=== PATIENT | female | born 1940 | race Caucasian/White ===

== ENCOUNTER 2019-11-01 08:59 | Outpatient (CLI) | payer MEDICARE, SELFPAY ==
[2019-11-01] MEDS: DENOSUMAB 60 MG/ML SYRINGE SUB-Q (09:43)
== END 2019-11-01 09:00 | disposition home or self-care (01) ==
LOC: CHSTREATRM 09:01
PROVIDERS: PCP Internal Medicine; Visit Provider Internal Medicine
DX: M81.0 Age-related osteoporosis without current pathological fracture (principal)
CPT/HCPCS: 96372; J0897

== ENCOUNTER 2019-11-24 08:14 | Outpatient (CLI) | payer MEDICARE, SELFPAY ==
[2019-11-24 08:28] LABS: Basophils Absolute Auto 0.03 K/mm3 (0.00-0.10); Basophils Percent Auto 0.6 % (0.0-1.0); Eosinophils Absolute Auto 0.16 K/mm3 (0.02-0.50); Hematocrit 38.6 % (35.0-42.0); Hemoglobin 12.8 g/dL (11.7-13.8); Immature Granulocyte Absolute 0.03 K/mm3 (0.00-0.00); Immature Granulocyte Percent A 0.6 % (0.0-0.0); Lymphocytes Absolute Auto 1.84 K/mm3 (1.10-4.50); Mean Corpuscular HGB Conc 33.2 g/dL (32.0-36.0); Mean Corpuscular Hemoglobin 31.8 pg (27.0-31.0); Mean Platelet Volume 9.3 fl (9.2-11.8); Monocytes Percent Auto 7.4 % (2.0-11.0); Neutrophils Percent Auto 54.4 % (50.0-70.0); Platelet Count Result 330 K/mm3 (150-420); Red Blood Count 4.02 M/mm3 (4.20-5.40); White Blood Count 5.4 K/mm3 (4.8-10.8)
[2019-11-24 08:30] LABS: Appearance Urine Sl Cloudy (Clear); Bilirubin Urine Negative (Negative); Color Urine Yellow (Yellow); Glucose Urine UA Negative (Negative); Ketones Urine Negative (Negative); Leukocyte Esterase Ur Negative (Negative); Nitrate Urine Negative (Negative); Protein Urine Negative (Negative); Specific Grav Ur 1.015 (1.010-1.020)
[2019-11-24 08:35] LABS: Add Urine Microscopic? YES; Bacteria Urine 1+ /hpf; Blood Urine Trace-Intact (Negative); RBC Urine 0-2 /hpf (0-2); Squamous Epithelial Cell Urine Moderate /hpf (Few); WBC Urine 0-3 /hpf (0-3)
[2019-11-24 09:38] LABS: Alanine Aminotransferase 26 U/L (14-59); Albumin Level 3.7 g/dL (3.4-5.0); Alkaline Phosphatase 95 U/L (46-116); Aspartate Amino Transferase 23 U/L (15-37); Bilirubin,Total 0.4 mg/dL (0.00-1.00); Blood Urea Nitrogen 16 mg/dL (7-18); Calcium 9.1 mg/dL (8.5-10.1); Carbon Dioxide 29 mmol/L (21-32); Chloride 102 mmol/L (98-108); Cholesterol 165 mg/dL (0-200); Creatine Kinase 45 U/L (26-192); Estimated Glomerular Filt Rate > 60; Glucose 95 mg/dL (70-99); HDL Direct 46 mg/dL (40-60); LDL Cholesterol Calculated 97 mg/dL (<130); Osmolality Calculated 295 mOsm/kg (285-295); Sodium 142 mmol/L (136-145); Total Protein 6.8 g/dL (6.4-8.2); Triglycerides 110 mg/dL (0-150); Vitamin B12 818 pg/mL (193-986)
== END 2019-11-24 08:15 | disposition home or self-care (01) ==
LOC: CHSLAB 08:16
PROVIDERS: PCP Internal Medicine; Visit Provider Internal Medicine
DX: E53.9 Vitamin B deficiency, unspecified (principal); I10 Essential (primary) hypertension; E78.2 Mixed hyperlipidemia
CPT/HCPCS: 36415; 80053; 80061; 81001; 82550; 82607; 85025

== ENCOUNTER 2020-01-25 08:08 | Outpatient (CLI) | payer MEDICARE, SELFPAY ==
--- NOTE | ~2020-01-25 | US_ITS ---
US right upper quadrant INDICATION: Right upper quadrant pain and nausea PROCEDURE: Realtime right upper abdominal ultrasound. COMPARISON: No prior studies for comparison. FINDINGS: The pancreas is normal without focal mass or pancreatic ductal dilation. There is a 1 cm l iver cyst. There is normal directional flow in the portal vein. There are gallstones with mild gallbladder wall thickening. No pericholecystic fluid. Common bile du ct measures 3 mm. No sonographic Decker's sign. IMPRESSION: 1: Cholelithiasis with mild gallbladder wall thickening. Consider cholecystitis in the appropriate cl inical setting. Reviewed, dictated and finalized at location A. IMPRESSION: 1: Cholelithiasis with mild gallbladder wall thickening. Consider cholecystitis in the appropriate clinical setting.
== END 2020-01-25 08:09 | disposition home or self-care (01) ==
PROVIDERS: PCP Internal Medicine; Visit Provider Internal Medicine
DX: R10.11 Right upper quadrant pain (principal)
CPT/HCPCS: 76705

== ENCOUNTER 2020-02-01 20:35 | Emergency (ER) | payer MEDICARE, SELFPAY ==
[2020-02-01 21:01] VITALS: BP 155/88; PULSE 78; RESP 20; TEMP 36.9; O2SAT 98
--- NOTE | 2020-02-01 21:10 | ED.WEAKNESS ---
HPI - Weakness General Chief complaint: Weakness Stated complaint: weak, headache Time Seen by Provider: 02/01/20 21:10 Source: patient Mode of arrival: ambulatory Limitations: no limitations History of Present Illness HPI Narrative: 79-year-old woman comes in today complaining of shakiness in her legs that started this morning. Patient states they went to see her doctor and her symptoms stopped. After dinner this evening she states her symptoms started again. She states she has been having headache since she had an upper molar pulled 2 days ago. She states that she has some mild nausea. She denies vomiting, abdominal pain, focal weakness, dysuria, hematuria, frequent urination, diarrhea, sore throat, cough and cold symptoms. MD Complaint: generalized weakness Onset (ago): day(s) (12) Duration: intermittent Location: generalized Migration: none Severity: moderate Relieving factors: rest ( sitting) Exacerbating factors: none ( Standing) Related Data Home Medications Medication Instructions Recorded Confirmed amitriptyline 25 mg PO DAILY PRN 02/01/20 02/01/20 amoxicillin 500 mg PO TID 02/01/20 02/01/20 carvedilol 3.125 mg PO BID 02/01/20 02/01/20 desmopressin 0.2 mg PO DAILY 02/01/20 02/01/20 losartan 100 mg PO DAILY 02/01/20 02/01/20 lovastatin 40 mg PO DAILY 02/01/20 02/01/20 paroxetine HCl 20 mg PO DAILY 02/01/20 02/01/20 temazepam 15 mg PO HS PRN 02/01/20 02/01/20 Allergies Allergy/AdvReac Type Severity Reaction Status Date / Time Sulfa (Sulfonamide Allergy Nausea Verified 02/01/20 20:56 Antibiotics) Review of Systems Constitutional: Constitutional: Denies fatigue, Denies fever(s) and Denies weakness Eyes: Eyes: Denies change in vision and Denies photophobia ENT: Denies dysphagia, Denies nasal congestion and Denies sore throat Cardiovascular: Cardiovascular: Denies chest pain and Denies radiating jaw, neck or arm pain Respiratory: Respiratory: Denies chest congestion, Denies cough, Denies dyspnea and Denies wheezing Gastrointestinal: Gastrointestinal: Denies abdominal pain, Reports nausea and Denies vomiting Genitourinary: Genitourinary: Denies nocturia and Denies dysuria Integumentary/Breasts: Skin/Breast: Denies pruritus, Denies erythema and Denies rash Neurologic: Reports as per HPI, Denies vertigo, Denies dizziness, Denies syncope and Denies focal weakness Psychiatric: Psychiatric: Reports anxiety Endocrine: Endocrine: Denies polydipsia and Denies polyuria Hematologic/Lymphatic: Hematologic/Lymphatic: Denies easy bleeding and Denies easy bruising Allergic/Immunologic: Allergic/Immunologic: Denies lip swelling, Denies throat swelling, Denies tongue swelling and Denies wheezing PMFSH Past Medical History Medical History (Updated 02/01/20 @ 22:38 by Juan Villa MD) Anxiety Depression Dyslipidemia Hypertension Surgical History Surgical History (Updated 02/01/20 @ 22:38 by Juan Villa MD) H/O foot surgery H/O: hysterectomy Social History Social History (Updated 02/01/20 @ 22:38 by Juan Villa MD) Smoking status: Never smoker Alcohol intake: never Substance use: never Living arrangements: with family Exam Const: General: healthy appearing and alert Orientation/consciousness: patient oriented x3 Limitations: no limitations Other: mildly anxious HENMT: Ears: external ears normal, TM's normal bilaterally and EAC's normal Mouth: Yes Normal oral and palatal mucosa present and Yes moist mucous membranes Throat: posterior oropharynx normal and uvula midline Other: Fibrin clot at extraction site of right upper molar. No active bleeding. Eyes: Conjunctivae: conjunctivae normal Pupils: Equal, round and reactive pupils present EOM: EOMs intact bilaterally Resp: Effort & Inspection: normal respiratory effort and not labored Auscultation: clear to auscultation bilaterally, no rales, no rhonchi and no wheezes Cardio: Rate: regular rate
--- NOTE | 2020-02-01 21:19 | ECG_ITS ---
Measurements Intervals [place] Rate: 80 P: 82 PA: 190 QRS: 34 QRSD: 95 T: 66 QT: 371 QTc: 429 Interpretive Statements SINUS RHYTHM BASELINE ARTIFACT- II, III, AVR, AVL, AVF NORMAL ECG Electronically Signed On 02-02-2020 7:07:28 CDT by Yo Youngblood D.O.
[2020-02-01 21:24] VITALS: BP 162/90; PULSE 82
[2020-02-01 21:25] VITALS: BP 135/80; PULSE 88
[2020-02-01 21:36] LABS: Basophils Absolute Auto 0.02 K/mm3 (0.00-0.10); Basophils Percent Auto 0.3 % (0.0-1.0); Eosinophils Absolute Auto 0.11 K/mm3 (0.02-0.50); Eosinophils Percent Auto 1.8 % (1.0-6.0); Hematocrit 42.9 % (35.0-42.0); Hemoglobin 14.7 g/dL (11.7-13.8); Immature Granulocyte Absolute 0.02 K/mm3 (0.00-0.00); Immature Granulocyte Percent A 0.3 % (0.0-0.0); Lymphocytes Absolute Auto 2.55 K/mm3 (1.10-4.50); Lymphocytes Percent Auto 41.7 % (18.0-42.0); Mean Corpuscular HGB Conc 34.3 g/dL (32.0-36.0); Mean Corpuscular Hemoglobin 31.7 pg (27.0-31.0); Mean Corpuscular Volume 92.7 fL (78.0-102.0); Mean Platelet Volume 9.9 fl (9.2-11.8); Monocytes Absolute Auto 0.43 K/mm3 (0.10-0.90); Neutrophils Percent Auto 48.9 % (50.0-70.0); Platelet Count Result 243 K/mm3 (150-420); Red Blood Count 4.63 M/mm3 (4.20-5.40); Red Cell Distribution Width 11.9 % (11.6-14.4); White Blood Count 6.1 K/mm3 (4.8-10.8)
[2020-02-01 21:36] LABS: Add Urine Microscopic? YES; Appearance Urine Clear (Clear); Bilirubin Urine Negative (Negative); Blood Urine 2+ (Negative); Color Urine Yellow (Yellow); Glucose Urine UA Negative (Negative); Ketones Urine Negative (Negative); Leukocyte Esterase Ur Negative (Negative); Nitrate Urine Negative (Negative); Protein Urine Negative (Negative); Specific Grav Ur <= 1.005 (1.010-1.020); Urobilinogen Urine 0.2 mg/dL (0.2-1.0); pH Urine 6.5 (5.0-8.0)
[2020-02-01 21:42] LABS: Bacteria Urine Trace /hpf; Squamous Epithelial Cell Urine Few /hpf (Few); WBC Urine 0-3 /hpf (0-3)
[2020-02-01 21:52] LABS: Alanine Aminotransferase 23 U/L (14-59); Albumin Level 4.2 g/dL (3.4-5.0); Alkaline Phosphatase 80 U/L (46-116); Anion Gap 12.9 mmol/L (7-16); Aspartate Amino Transferase 21 U/L (15-37); Bilirubin,Total 0.5 mg/dL (0.00-1.00); Blood Urea Nitrogen 11 mg/dL (7-18); Calcium 9.1 mg/dL (8.5-10.1); Carbon Dioxide 29 mmol/L (21-32); Chloride 92 mmol/L (98-108); Estimated Glomerular Filt Rate > 60; Glucose 105 mg/dL (70-99); Osmolality Calculated 269 mOsm/kg (285-295); Potassium 3.9 mmol/L (3.5-5.1); Sodium 130 mmol/L (136-145); Total Protein 7.6 g/dL (6.4-8.2)
[2020-02-01 21:53] LABS: Troponin I < 0.02 ng/mL (0.00-0.056)
[2020-02-01] MEDS: SODIUM CHLORIDE 0.9% IV 1,000 ML 999 ML IV CONT (22:08)
[2020-02-01 22:52] VITALS: BP 135/81
== END 2020-02-01 22:59 | disposition home or self-care (01) ==
PROVIDERS: Emergency Provider Emergency Medicine; PCP Internal Medicine
DX: E86.0 Dehydration (principal); E78.5 Hyperlipidemia, unspecified; I10 Essential (primary) hypertension
CPT/HCPCS: 36415; 80053; 81001; 84484; 85025; 93005; 96360; 99284; J7030

== ENCOUNTER 2020-03-11 16:31 | Emergency (ER) | payer MEDICARE, SELFPAY ==
--- NOTE | 2020-03-11 17:03 | ED.WEAKNESS ---
HPI - Weakness General Chief complaint: Weakness Stated complaint: nauseous and weak Time Seen by Provider: 03/11/20 17:03 Source: patient Mode of arrival: ambulatory Limitations: no limitations History of Present Illness HPI Narrative: 79-year-old pleasant female is in the ER with chief complaints of feeling weak and nauseated. The patient states that the symptoms started this morning after she woke up . She denies in the vomiting or diarrhea, abdominal pain or urinary symptoms. Patient states that she has a gallbladder disease and is scheduled to have her gallbladder out on the February. She states that her appetite is okay but she did not eat a lot today because of the nausea. Patient denies any fever or chills. Patient states that she has similar episode about 6 weeks ago and was dehydrated at that time, was treated with IV fluids and felt better. Patient states that the weakness is generalized but denies any unsteadiness of her gait. Patient denies any blood in her stools, patient denies any chest pain or shortness of breath. Related Data Home Medications Medication Instructions Recorded Confirmed amitriptyline 25 mg PO DAILY PRN 02/01/20 02/28/20 amoxicillin 500 mg PO TID 02/01/20 02/28/20 carvedilol 3.125 mg PO BID 02/01/20 02/28/20 desmopressin 0.2 mg PO DAILY 02/01/20 02/28/20 lovastatin 40 mg PO DAILY 02/01/20 02/28/20 paroxetine HCl 20 mg PO DAILY 02/01/20 02/28/20 temazepam 15 mg PO HS PRN 02/01/20 02/28/20 losartan 100 mg tablet 50 mg PO DAILY tablet 02/08/20 02/28/20 Allergies Allergy/AdvReac Type Severity Reaction Status Date / Time iodine Allergy Mild Rash Verified 02/24/20 14:00 Sulfa (Sulfonamide Allergy Nausea Verified 02/24/20 14:00 Antibiotics) Review of Systems Review of Systems: All systems reviewed & are unremarkable except as noted in HPI and below Constitutional: Constitutional: Reports fatigue and Reports weakness Eyes: Eyes: Reports as per HPI ENT: Denies dysphagia, Denies dizziness and Denies sore throat Respiratory: Respiratory: Denies no additional respiratory complaints Gastrointestinal: Gastrointestinal: Reports as per HPI, Denies abdominal pain, Denies bloating, Denies constipation, Denies heartburn, Denies diarrhea, Reports nausea and Denies vomiting Genitourinary: Genitourinary: Reports as per HPI Musculoskeletal: Musculoskeletal: Reports no additional musculoskeletal complaints Integumentary/Breasts: Skin/Breast: Reports system reviewed and no additional complaints, except as docu Neurologic: Denies confusion, Denies vertigo, Denies dizziness, Denies syncope, Denies headache(s), Denies focal weakness, Denies numbness and Reports weakness Psychiatric: Psychiatric: Reports no additional psychiatric complaints Hematologic/Lymphatic: Hematologic/Lymphatic: Reports no additional hematologic/lymphatic complaints PMFSH Past Medical History Medical History Anxiety Depression Dyslipidemia Gall bladder disease Hypertension Kidney stones Surgical History Surgical History H/O foot surgery H/O: hysterectomy Family History Family History Father Colon cancer Mother Heart disease Social History Social History Smoking status: Never smoker Alcohol intake: never Substance use: never Living arrangements: alone Occupation/Education: retired Exam Const: General: healthy appearing, no acute distress and alert Nutritional Appearance: well nourished Orientation/consciousness: patient oriented x3 Limitations: no limitations HENMT: Head: normal to inspection Face and sinus: normal facial exam Mouth: Yes dry mucous membranes Eyes: Pupils: Equal, round and reactive pupils present EOM: EOMs intact bilaterally Neck: Neck: normal visual inspec
[2020-03-11 17:05] VITALS: BP 173/97; PULSE 106; RESP 16; TEMP 36.6; O2SAT 95
[2020-03-11 17:07] LABS: Add Urine Microscopic? YES; Appearance Urine Clear (Clear); Bilirubin Urine Negative (Negative); Blood Urine 1+ (Negative); Color Urine Yellow (Yellow); Glucose Urine UA Negative (Negative); Ketones Urine Negative (Negative); Leukocyte Esterase Ur Negative LEU/UL (Negative); Nitrate Urine Negative (Negative); Protein Urine Negative (Negative); Urobilinogen Urine 0.2 mg/dL (0.2-1.0); pH Urine 7.5 (5.0-8.0)
[2020-03-11 17:14] LABS: Squamous Epithelial Cell Urine Rare /hpf (Few); WBC Urine None seen /hpf (0-3)
[2020-03-11 17:15] LABS: Bacteria Urine None seen /hpf; Mucus Urine None seen /lpf
[2020-03-11] MEDS: LACTATED RINGERS 1,000 ML 999 ML IV CONT (17:20)
[2020-03-11 17:36] LABS: Basophils Absolute Auto 0.04 K/mm3 (0.00-0.10); Basophils Percent Auto 0.7 % (0.0-1.0); Eosinophils Absolute Auto 0.08 K/mm3 (0.02-0.50); Eosinophils Percent Auto 1.4 % (1.0-6.0); Hematocrit 38.3 % (35.0-42.0); Hemoglobin 12.8 g/dL (11.7-13.8); Immature Granulocyte Absolute 0.01 K/mm3 (0.00-0.00); Immature Granulocyte Percent A 0.2 % (0.0-0.0); Lymphocytes Absolute Auto 2.01 K/mm3 (1.10-4.50); Lymphocytes Percent Auto 34.9 % (18.0-42.0); Mean Corpuscular HGB Conc 33.4 g/dL (32.0-36.0); Mean Corpuscular Hemoglobin 31.4 pg (27.0-31.0); Mean Corpuscular Volume 94.1 fL (78.0-102.0); Mean Platelet Volume 9.8 fl (9.2-11.8); Monocytes Absolute Auto 0.44 K/mm3 (0.10-0.90); Monocytes Percent Auto 7.6 % (2.0-11.0); Neutrophils Absolute Auto 3.2 K/mm3 (1.7-7.2); Neutrophils Percent Auto 55.2 % (50.0-70.0); Platelet Count Result 208 K/mm3 (150-420); Red Blood Count 4.07 M/mm3 (4.20-5.40); White Blood Count 5.8 K/mm3 (4.8-10.8)
[2020-03-11 17:46] LABS: Anion Gap 9.2 mmol/L (7-16); Blood Urea Nitrogen 9 mg/dL (7-18); Calcium 8.8 mg/dL (8.5-10.1); Carbon Dioxide 31 mmol/L (21-32); Chloride 93 mmol/L (98-108); Estimated Glomerular Filt Rate > 60; Glucose 99 mg/dL (70-99); Magnesium 1.9 mg/dL (1.8-2.4); Osmolality Calculated 266 mOsm/kg (285-295); Potassium 4.2 mmol/L (3.5-5.1); Sodium 129 mmol/L (136-145)
[2020-03-11] MEDS: ONDANSETRON INJ 4 MG/2 ML VIAL IV PUSH (18:18)
[2020-03-11 18:29] VITALS: BP 157/89
== END 2020-03-11 18:30 | disposition home or self-care (01) ==
PROVIDERS: Emergency Provider Emergency Medicine; PCP Internal Medicine
DX: E86.0 Dehydration (principal); F41.9 Anxiety disorder, unspecified; I10 Essential (primary) hypertension
CPT/HCPCS: 36415; 80048; 81001; 83735; 85025; 96361; 96374; 99283; 99284; J2405; J7120

== ENCOUNTER 2020-03-21 00:51 | Outpatient (CLI) | payer MEDICARE, SELFPAY ==
[2020-03-21 17:34] LABS: SARS-CoV-2 RNA PCR Negative
== END 2020-03-21 00:52 | disposition home or self-care (01) ==
LOC: ANHCOVIDDT 00:51
PROVIDERS: PCP Internal Medicine; Visit Provider Surgery
DX: Z01.818 Encounter for other preprocedural examination (principal); Z11.59 Encounter for screening for other viral diseases
CPT/HCPCS: 87635; C9803; U0003

== ENCOUNTER 2020-03-21 10:16 | Outpatient (CLI) | payer MEDICARE, SELFPAY ==
[2020-03-21 10:50] LABS: Alanine Aminotransferase 20 U/L (4-35); Albumin Level 4.7 g/dL (3.5-5.1); Alkaline Phosphatase 76 U/L (38-126); Amylase 76 U/L (30-110); Aspartate Amino Transferase 32 U/L (14-36); Bilirubin,Total 0.7 mg/dL (0.2-1.3); Lipase 60 U/L (23-300)
== END 2020-03-21 10:17 | disposition home or self-care (01) ==
PROVIDERS: PCP Internal Medicine; Visit Provider Surgery
DX: Z01.818 Encounter for other preprocedural examination (principal); K80.10 Calculus of gallbladder with chronic cholecystitis without obstruction
CPT/HCPCS: 36415; 80076; 82150; 83690; 86850; 86900; 86901; 87635; C9803; U0003

== ENCOUNTER 2020-03-23 02:06 | Day surgery (SDC) | payer MEDICARE, SELFPAY ==
[2020-03-20 12:05] VITALS: BMI 26.2
[2020-03-23] VITALS (10 sets, daily range): BP systolic 107–152; BP diastolic 67–93; PULSE 61–78; RESP 12–20; TEMP 36.2–36.5; O2SAT 93–100
--- NOTE | 2020-03-23 06:45 | P.PNAN_ITS ---
Anes - Initial Pre Proc Eval Procedure: Operation Date: 03/23/20 07:30 Proposed Procedures p Laparoscopic Cholecystectomy - Raymon Viera MD Date/Time: 03/23/20 06:45 Surgeon: Raymon Viera MD Pre Op Diagnosis: chronic cholecystitis with stones Patient Data Age: 79 Gender: F Height: 1.68 m Weight: 73.6 kg Allergies Allergy/AdvReac Type Severity Reaction Status Date / Time adhesive tape Allergy Mild Rash Verified 03/20/20 12:00 iodine Allergy Mild Rash Verified 03/20/20 12:00 Sulfa (Sulfonamide Allergy Nausea Verified 03/20/20 12:00 Antibiotics) Home Medications Medication Instructions Recorded Confirmed Type amitriptyline 25 mg PO HS PRN 02/01/20 03/23/20 History carvedilol 3.125 mg PO BID 02/01/20 03/23/20 History desmopressin 0.2 mg PO DAILY 02/01/20 03/23/20 History lovastatin 40 mg PO HS 02/01/20 03/23/20 History paroxetine HCl 20 mg PO DAILY 02/01/20 03/23/20 History temazepam 15 mg PO HS PRN 02/01/20 03/23/20 History losartan 100 mg tablet 50 mg PO DAILY tablet 02/08/20 03/23/20 History esomeprazole magnesium [Nexium] 20 mg PO DAILY 03/20/20 03/23/20 History loratadine [Claritin] 10 mg PO DAILY 03/20/20 03/23/20 History algceajq-cru-VD-lycopen-lutein 1 tablet PO DAILY 03/20/20 03/23/20 History [Centrum Silver] Patient hx anesthesia problems: none Family hx anesthesia problems: none [facility] Social History Social History Smoking status: Never smoker Alcohol intake: never Substance use: never Anes - Eval Final PreProcedure Day of Procedure 03/23/20 06:45 Patient weight: overweight Heart: regular rate and rhythm Lungs: clear to auscultation and normal air movement Airway: Mallampati scale class III Neurological: alert and oriented Last oral intake: >/= 8 hours ASA classification: II Emergent: no Anesthetic plan: proceed Anesthesia type and monitoring: general ETT and standard monitoring Informed Consent: The patient's anesthetic plan and its attendant risks and benefits were discussed with the patient/family/POA. Questions were solicited and answers provided to the satisfaction of the patient/family/POA.
[2020-03-23] MEDS: LACTATED RINGERS 1,000 ML 30 ML IV CONT (06:50)
--- NOTE | 2020-03-23 06:59 | WPDHPUPDATE1 ---
History and Physical Update Update Date/Time: 03/23/20 06:59 History and Physical has been reviewed, including an updated exam of the patient. There are NO changes in the patient's condition. Risks, benefits, and alternatives have been discussed and questions answered. Patient agrees to proceed with procedure.
[2020-03-23 07:11] LABS: Sodium 127 mmol/L (137-145)
--- NOTE | 2020-03-23 07:23 | SUR.PREOP ---
0746- spoke with dr. bains about pt NA LEVEL OF 127. PT STATED NA LEVELS BEING LOW IS NORMAL. DR. DANIELLE AWARE. 0162- DR. DANIELLE AWARE THAT PT DOES NOT WANT NORCO OR PERCOCET TO GO HOME WITH.
[2020-03-23] MEDS: ceFAZolin 2 GM/D5W 50 ML 2 GM/50 ML BAG IVPB (07:29)
--- NOTE | 2020-03-23 07:35 | PM.PROC ---
Procedure Note - Detailed Date of procedure: 03/23/20 Pre-op diagnosis: chronic cholecystitis with stones Chronic cholecystitis, cholelithiasis Post-op diagnosis: same Procedure performed: Laparoscopic cholecystectomy Description of procedure: The patient was taken to surgery and induced into general anesthesia. The abdomen was prepped and draped. Trocars were placed in the usual fashion using 0.5% Marcaine with epinephrine and applied Medical optical trocars. A 5 millimeter camera was used. The gallbladder was decompressed with a laparoscopic aspirator. The cholecystotomy was closed with a Vicryl endo-loop. The gallbladder was retracted anterosuperiorly. Adhesions to the gallbladder were taken down so that the cholecystohepatic triangle was exposed. Traction was placed on the infundibulum. The cystic duct and cystic artery were dissected out very clearly. The gallbladder was dissected off the liver at its lower 3rd. Critical view was achieved. We securely clipped and divided the cystic duct and cystic artery. The gallbladder was then further retracted so that the peritoneal attachments to the liver could be divided. Once the gallbladder was freed entirely, it was placed in an Endo-Catch bag and retrieved through the 10 11 epigastric trocar site. The epigastric trocar was then replaced. We reviewed the right upper quadrant. It was irrigated and suctioned. All looked good with no evidence of bleeding or bile leakage. We evacuated CO2 and removed the trocar sleeves. Skin wounds were closed with subcuticular 4 O Monocryl skin suture. The wounds were dressed with Exofin surgical adhesive. Patient was awakened and taken to recovery in good condition. Sponge and needle counts were correct x2. Anesthesia: GETA and local (0.5% Marcaine with epinephrine) Surgeon: Raymon Viera MD Headwaiter/Headwaitress: Gayathri HERNANDEZ Estimated blood loss (mL): 10 Drains: No Packing: No Pathology: yes (Gallbladder) Complications: None Condition: stable Disposition: PACU Findings: Mild chronic inflammation, gallstones noted. No biliary ductal dilatation, no liver abnormalities.
[2020-03-23] MEDS: BUPIVACAINE/EPINEPHRINE 0.5% 30 ML VIAL INFILTRATE (08:03)
--- NOTE | 2020-03-23 08:11 | SUR.OPER ---
Ebl=10ml
== END 2020-03-23 11:12 | disposition home or self-care (01) ==
PROVIDERS: PCP Internal Medicine; Visit Provider Surgery
PROC: 0FT44ZZ Resection of Gallbladder, Percutaneous Endoscopic Approach (ICD-10-PCS; CPT 47562; principal; 2020-03-23 07:30)
DX: K80.10 Calculus of gallbladder with chronic cholecystitis without obstruction (principal); K82.8 Other specified diseases of gallbladder; I10 Essential (primary) hypertension; E78.5 Hyperlipidemia, unspecified; F32.9 Major depressive disorder, single episode, unspecified; F41.9 Anxiety disorder, unspecified; E66.3 Overweight; Z68.26 Body mass index [BMI] 26.0-26.9, adult; Z79.899 Other long term (current) drug therapy; Z88.2 Allergy status to sulfonamides
CPT/HCPCS: 47562; 36415; 84295; 88304; C1713; J0131; J0330; J0690; J1100; J2405; J2704; J3010; J7030; J7120

== ENCOUNTER 2020-05-04 08:19 | Outpatient (CLI) | payer MEDICARE, SELFPAY ==
[2020-05-04 08:28] LABS: Basophils Absolute Auto 0.06 K/mm3 (0.00-0.10); Eosinophils Absolute Auto 0.17 K/mm3 (0.02-0.50); Eosinophils Percent Auto 2.9 % (1.0-6.0); Hematocrit 47.3 % (35.0-42.0); Hemoglobin 14.4 g/dL (11.7-13.8); Immature Granulocyte Absolute 0.01 K/mm3 (0.00-0.00); Immature Granulocyte Percent A 0.2 % (0.0-0.0); Lymphocytes Absolute Auto 2.28 K/mm3 (1.10-4.50); Lymphocytes Percent Auto 38.3 % (18.0-42.0); Mean Corpuscular HGB Conc 30.4 g/dL (32.0-36.0); Mean Corpuscular Hemoglobin 32.4 pg (27.0-31.0); Mean Corpuscular Volume 106.3 fL (78.0-102.0); Mean Platelet Volume 10.4 fl (9.2-11.8); Monocytes Absolute Auto 0.31 K/mm3 (0.10-0.90); Monocytes Percent Auto 5.2 % (2.0-11.0); Neutrophils Absolute Auto 3.1 K/mm3 (1.7-7.2); Neutrophils Percent Auto 52.4 % (50.0-70.0); Platelet Count Result 242 K/mm3 (150-420); Red Blood Count 4.45 M/mm3 (4.20-5.40)
[2020-05-04 08:29] LABS: Add Urine Microscopic? YES; Appearance Urine Clear (Clear); Bilirubin Urine Negative (Negative); Blood Urine 2+ (Negative); Color Urine Yellow (Yellow); Glucose Urine UA Negative (Negative); Ketones Urine Negative (Negative); Leukocyte Esterase Ur Negative (Negative); Nitrate Urine Negative (Negative); Protein Urine Negative (Negative); Specific Grav Ur >= 1.030 (1.010-1.020); Urobilinogen Urine 0.2 mg/dL (0.2-1.0)
[2020-05-04 08:46] LABS: Bacteria Urine 3+ /hpf; Mucus Urine Heavy /lpf; RBC Urine 21-50 /hpf (0-2); Squamous Epithelial Cell Urine Many /hpf (Few)
[2020-05-04 09:25] LABS: Immature Reticulocyte Fraction 8.6 % (2.0-16.52); Reticulocyte Hemoglobin Conten 37.1 pg (28.0-35.0); Reticulocyte Percent 2.16 % (0.50-1.50)
[2020-05-04 10:11] LABS: Alanine Aminotransferase 24 U/L (14-59); Alkaline Phosphatase 71 U/L (46-116); Anion Gap 11.9 mmol/L (7-16); Aspartate Amino Transferase 23 U/L (15-37); Bilirubin,Total 0.5 mg/dL (0.00-1.00); Blood Urea Nitrogen 15 mg/dL (7-18); Calcium 9.7 mg/dL (8.5-10.1); Carbon Dioxide 32 mmol/L (21-32); Chloride 102 mmol/L (98-108); Cholesterol 213 mg/dL (0-200); Creatine Kinase 46 U/L (26-192); Estimated Glomerular Filt Rate > 60; Glucose 91 mg/dL (70-99); HDL Direct 62 mg/dL (40-60); LDL Cholesterol Calculated 118 mg/dL (<130); Osmolality Calculated 292 mOsm/kg (285-295); Potassium 4.9 mmol/L (3.5-5.1); Sodium 141 mmol/L (136-145); Total Protein 7.1 g/dL (6.4-8.2); Triglycerides 165 mg/dL (0-150); Vitamin B12 666 pg/mL (193-986)
[2020-05-07 07:15] LABS: Red Blood Cell Folate 703 ng/mL RBC (>280)
[2020-05-07 11:03] LABS: Vitamin D 25 Hydroxy 44 ng/mL (30-100)
== END 2020-05-04 08:20 | disposition home or self-care (01) ==
PROVIDERS: PCP Internal Medicine; Visit Provider Internal Medicine
DX: D53.9 Nutritional anemia, unspecified (principal); E78.5 Hyperlipidemia, unspecified; E53.8 Deficiency of other specified B group vitamins; M81.0 Age-related osteoporosis without current pathological fracture; I10 Essential (primary) hypertension
CPT/HCPCS: 36415; 80053; 80061; 81001; 82306; 82550; 82607; 82747; 85025; 85046

== ENCOUNTER 2020-05-10 12:47 | Outpatient (CLI) | payer MEDICARE, SELFPAY ==
--- NOTE | ~2020-05-10 | US_ITS ---
EXAMINATION: US retroperitoneal comp DATE: 05/10/2020 13:40 INDICATION: Hematuria TECHNIQUE: Multiple ultrasound grayscale images of the kidneys were obtained. COMPARISON: CT abdomen and pelvis dated 03/12/2019 FINDINGS: The right kidney measures 9.6 x 4.1 x 5.9 cm. The left kidney measures 9.1 x 4.7 x 5.9 cm. The kidney s demonstrate normal echogenicity. There is no hydronephrosis in either kidney. No stones identified . The bladder is normal. IMPRESSION: 1. Normal kidneys without hydronephrosis. Reviewed, dictated and finalized at location A.
== END 2020-05-10 12:48 | disposition home or self-care (01) ==
LOC: CHSIMG 12:49
PROVIDERS: PCP Internal Medicine; Visit Provider Internal Medicine
DX: R31.9 Hematuria, unspecified (principal)
CPT/HCPCS: 76770; 88112

== ENCOUNTER 2020-09-25 11:13 | Outpatient (CLI) | payer MEDICARE, SELFPAY ==
[2020-09-25 12:27] LABS: Anion Gap 6 mmol/L (8-16); Blood Urea Nitrogen 19 mg/dL (7-18); Calcium 9.3 mg/dL (8.5-10.1); Carbon Dioxide 31 mmol/L (21-32); Chloride 99 mmol/L (98-108); Estimated Glomerular Filt Rate > 60; Glucose 89 mg/dL (70-99); Osmolality Calculated 283 mOsm/kg (285-295); Potassium 4.9 mmol/L (3.5-5.1); Sodium 136 mmol/L (136-145)
== END 2020-09-25 11:14 | disposition home or self-care (01) ==
LOC: CHSLAB 11:14
PROVIDERS: PCP Internal Medicine; Visit Provider Internal Medicine
DX: I10 Essential (primary) hypertension (principal)
CPT/HCPCS: 36415; 80048

== ENCOUNTER 2020-10-20 08:28 | Outpatient (CLI) | payer MEDICARE, SELFPAY ==
[2020-10-22 18:26] LABS: SARS-CoV-2 RNA PCR Positive
== END 2020-10-20 08:29 | disposition home or self-care (01) ==
LOC: CHSLAB 08:30
PROVIDERS: PCP Internal Medicine; Visit Provider Internal Medicine
DX: U07.1 COVID-19 (principal)
CPT/HCPCS: C9803; U0003; U0005

== ENCOUNTER 2020-10-31 15:08 | Emergency (ER) | payer MEDICARE, SELFPAY ==
[2020-10-31 15:22] VITALS: BP 177/89; PULSE 87; RESP 20; TEMP 36.3; O2SAT 96
--- NOTE | 2020-10-31 15:33 | ECG_ITS ---
Measurements Intervals [place] Rate: 72 P: 65 NH: 194 QRS: -1 QRSD: 92 T: 30 QT: 376 QTc: 413 Interpretive Statements SINUS RHYTHM BASELINE ARTIFACT- II, III, AVF NORMAL ECG Electronically Signed On 10-31-2020 16:08:09 CORE DRILL OPERATOR by Yo Youngblood D.O.
--- NOTE | 2020-10-31 15:36 | ED.GENADULT ---
HPI - General Adult General Chief complaint: Weakness Stated complaint: weakness,lightheaded Source: patient Mode of arrival: ambulatory Limitations: no limitations History of Present Illness HPI narrative: Qing is an 79F with a PMH of HTN, HLD, mood disorder, GERD and hyponatremia that presented to the ED with new weakness. She had COVID a couple weeks ago and had recovered from that. However, shortly after waking up today she felt weak and like her legs were not very strong. She has had a few loose stools but no diarrhea. It felt like previous episodes of dehydration or hyponatremia. No confusion, SOB, CP, abdominal pain, N/V, CP, or syncope/syncope. Related Data Home Medications Medication Instructions Recorded Confirmed amitriptyline 25 mg PO HS PRN 02/01/20 04/05/20 carvedilol 3.125 mg PO BID 02/01/20 04/05/20 desmopressin 0.2 mg PO DAILY 02/01/20 04/05/20 lovastatin 40 mg PO HS 02/01/20 04/05/20 paroxetine HCl 20 mg PO DAILY 02/01/20 04/05/20 temazepam 15 mg PO HS PRN 02/01/20 04/05/20 losartan 100 mg tablet 50 mg PO DAILY tablet 02/08/20 04/05/20 Centrum Silver 1 tablet PO DAILY 03/20/20 04/05/20 esomeprazole magnesium [Nexium] 20 mg PO DAILY 03/20/20 04/05/20 loratadine [Claritin] 10 mg PO DAILY 03/20/20 04/05/20 Allergies Allergy/AdvReac Type Severity Reaction Status Date / Time adhesive tape Allergy Mild Rash Verified 04/05/20 09:11 iodine Allergy Mild Rash Verified 04/05/20 09:11 Sulfa (Sulfonamide Allergy Nausea Verified 04/05/20 09:11 Antibiotics) Review of Systems Constitutional: Constitutional: Reports fatigue and Reports weakness Eyes: Eyes: Reports no additional eye complaints ENT: Reports system reviewed and no additional complaints, except as documented Cardiovascular: Cardiovascular: Reports no additional cardiovascular complaints Respiratory: Respiratory: Reports no additional respiratory complaints Gastrointestinal: Gastrointestinal: Reports no additional gastrointestinal complaints Genitourinary: Genitourinary: Reports no additional female genitourinary complaints Musculoskeletal: Musculoskeletal: Reports no additional musculoskeletal complaints Integumentary/Breasts: Skin/Breast: Reports system reviewed and no additional complaints, except as docu Neurologic: Reports system reviewed and no additional complaints, except as documented Psychiatric: Psychiatric: Reports no additional psychiatric complaints Endocrine: Endocrine: Reports no additional endocrine complaints Hematologic/Lymphatic: Hematologic/Lymphatic: Reports no additional hematologic/lymphatic complaints Allergic/Immunologic: Allergic/Immunologic: Reports no additional allergic/immunologic complaints [facility] Past Medical History Medical History Anxiety Depression Dyslipidemia Gall bladder disease Hypertension Kidney stones Surgical History Surgical History H/O foot surgery H/O: hysterectomy History of laparoscopic cholecystectomy 03/23/20 Family History Family History Father Colon cancer Mother Heart disease Social History Social History Smoking status: Never smoker Alcohol intake: never Substance use: never Gender identity (if verbalized by the patient): Female Exam Const: General: healthy appearing, no acute distress and alert; No confusion Orientation/consciousness: patient oriented x3 Limitations: No altered mental status HENMT: Head: normal to inspection Other: atraumatic Eyes: Conjunctivae: conjunctivae normal Pupils: Equal, round and reactive pupils present Neck: Neck: normal visual inspection Chest: Chest palpation & inspection: normal inspection of the chest Resp: Effort & Inspection: normal respiratory effort Auscultation: clear to ausculta
[2020-10-31 15:47] LABS: Basophils Absolute Auto 0.03 K/mm3 (0.00-0.10); Basophils Percent Auto 0.4 % (0.0-1.0); Eosinophils Absolute Auto 0.03 K/mm3 (0.02-0.50); Eosinophils Percent Auto 0.4 % (1.0-6.0); Hematocrit 39.3 % (35.0-42.0); Immature Granulocyte Absolute 0.02 K/mm3 (0.00-0.00); Immature Granulocyte Percent A 0.3 % (0.0-0.0); Lymphocytes Absolute Auto 2.37 K/mm3 (1.10-4.50); Lymphocytes Percent Auto 29.7 % (18.0-42.0); Mean Corpuscular HGB Conc 33.1 g/dL (32.0-36.0); Mean Corpuscular Hemoglobin 31.9 pg (27.0-31.0); Mean Corpuscular Volume 96.6 fL (78.0-102.0); Mean Platelet Volume 9.4 fl (9.2-11.8); Monocytes Absolute Auto 0.52 K/mm3 (0.10-0.90); Monocytes Percent Auto 6.5 % (2.0-11.0); Neutrophils Percent Auto 62.7 % (50.0-70.0); Platelet Count Result 272 K/mm3 (150-420); Red Blood Count 4.07 M/mm3 (4.20-5.40); Red Cell Distribution Width 11.9 % (11.6-14.4)
[2020-10-31 16:00] VITALS: BP 144/77; PULSE 73; RESP 20; O2SAT 96
[2020-10-31 16:02] LABS: BNP 101 pg/mL (0-100)
[2020-10-31 16:05] LABS: Alanine Aminotransferase 24 U/L (14-59); Albumin Level 3.8 g/dL (3.4-5.0); Alkaline Phosphatase 97 U/L (46-116); Anion Gap 6 mmol/L (8-16); Aspartate Amino Transferase 19 U/L (15-37); Bilirubin,Total 0.3 mg/dL (0.00-1.00); Blood Urea Nitrogen 13 mg/dL (7-18); Calcium 9.5 mg/dL (8.5-10.1); Carbon Dioxide 31 mmol/L (21-32); Chloride 100 mmol/L (98-108); Estimated CRCL calculation 47 ml/min; Estimated Glomerular Filt Rate > 60; Glucose 112 mg/dL (70-99); Magnesium 2.1 mg/dL (1.8-2.4); Osmolality Calculated 285 mOsm/kg (285-295); Phosphorus 3.5 mg/dL (2.6-4.7); Potassium 4.9 mmol/L (3.5-5.1); Sodium 137 mmol/L (136-145); Total Protein 7.4 g/dL (6.4-8.2); Troponin I 4.5 ng/L (0.00-60.4)
[2020-10-31 16:30] VITALS: BP 159/88; PULSE 80; RESP 20; O2SAT 99
[2020-10-31 16:35] LABS: Appearance Urine Clear (Clear); Bilirubin Urine Negative (Negative); Color Urine Yellow (Yellow); Glucose Urine UA Negative (Negative); Ketones Urine Negative (Negative); Leukocyte Esterase Ur Negative (Negative); Nitrate Urine Negative (Negative); Protein Urine Negative (Negative); Urobilinogen Urine 0.2 mg/dL (0.2-1.0); pH Urine 6.5 (5.0-8.0)
[2020-10-31 16:44] LABS: Add Urine Microscopic? YES; Bacteria Urine Trace /hpf; Blood Urine Trace (Negative); Squamous Epithelial Cell Urine Moderate /hpf (Few); WBC Urine 0-3 /hpf (0-3)
--- NOTE | 2020-10-31 17:59 | PC.NURSE ---
1750 PT HERE FOR EVALUATION
[2020-10-31 18:02] VITALS: BP 144/84; PULSE 98; RESP 20; TEMP 36.7; O2SAT 99
== END 2020-10-31 18:06 | disposition home or self-care (01) ==
PROVIDERS: Emergency Provider Family Medicine; PCP Internal Medicine
DX: R53.1 Weakness (principal); I10 Essential (primary) hypertension; E78.5 Hyperlipidemia, unspecified; K21.9 Gastro-esophageal reflux disease without esophagitis; Z86.16 Personal history of COVID-19
CPT/HCPCS: 36415; 80053; 81001; 83735; 83880; 84100; 84484; 85025; 93005; 97161; 99283; 99284

== ENCOUNTER 2020-11-08 08:16 | Outpatient (CLI) | payer MEDICARE, SELFPAY ==
[2020-11-08 08:39] LABS: Basophils Absolute Auto 0.05 K/mm3 (0.00-0.10); Basophils Percent Auto 0.8 % (0.0-1.0); Eosinophils Absolute Auto 0.08 K/mm3 (0.02-0.50); Eosinophils Percent Auto 1.3 % (1.0-6.0); Hematocrit 41.5 % (35.0-42.0); Hemoglobin 13.4 g/dL (11.7-13.8); Immature Granulocyte Absolute 0.02 K/mm3 (0.00-0.00); Immature Granulocyte Percent A 0.3 % (0.0-0.0); Lymphocytes Absolute Auto 1.86 K/mm3 (1.10-4.50); Lymphocytes Percent Auto 30.7 % (18.0-42.0); Mean Corpuscular HGB Conc 32.3 g/dL (32.0-36.0); Mean Corpuscular Hemoglobin 31.8 pg (27.0-31.0); Mean Corpuscular Volume 98.6 fL (78.0-102.0); Mean Platelet Volume 10.1 fl (9.2-11.8); Monocytes Absolute Auto 0.34 K/mm3 (0.10-0.90); Monocytes Percent Auto 5.6 % (2.0-11.0); Neutrophils Absolute Auto 3.7 K/mm3 (1.7-7.2); Neutrophils Percent Auto 61.3 % (50.0-70.0); Platelet Count Result 355 K/mm3 (150-420); Red Blood Count 4.21 M/mm3 (4.20-5.40); White Blood Count 6.1 K/mm3 (4.8-10.8)
[2020-11-08 08:40] LABS: Appearance Urine Clear (Clear); Bilirubin Urine Negative (Negative); Color Urine Yellow (Yellow); Glucose Urine UA Negative (Negative); Ketones Urine Negative (Negative); Leukocyte Esterase Ur Negative LEU/UL (Negative); Nitrate Urine Negative (Negative); Protein Urine Negative (Negative); Specific Grav Ur 1.025 (1.010-1.020); Urobilinogen Urine 0.2 mg/dL (0.2-1.0)
[2020-11-08 08:51] LABS: Add Urine Microscopic? YES; Bacteria Urine Trace /hpf; Blood Urine Trace-Intact (Negative); Squamous Epithelial Cell Urine Few /hpf (Few); WBC Urine 0-3 /hpf (0-3)
[2020-11-08 09:52] LABS: Alanine Aminotransferase 12 U/L (14-59); Alkaline Phosphatase 94 U/L (46-116); Anion Gap 7 mmol/L (8-16); Aspartate Amino Transferase 25 U/L (15-37); Bilirubin,Total 0.5 mg/dL (0.00-1.00); Blood Urea Nitrogen 11 mg/dL (7-18); Calcium 9.3 mg/dL (8.5-10.1); Carbon Dioxide 31 mmol/L (21-32); Chloride 99 mmol/L (98-108); Cholesterol 187 mg/dL (0-200); Creatine Kinase 73 U/L (26-192); Estimated Glomerular Filt Rate > 60; Glucose 92 mg/dL (70-99); HDL Direct 59 mg/dL (40-60); LDL Cholesterol Calculated 98 mg/dL (<130); Osmolality Calculated 283 mOsm/kg (285-295); Potassium 4.8 mmol/L (3.5-5.1); Sodium 137 mmol/L (136-145); Total Protein 7.7 g/dL (6.4-8.2); Triglycerides 149 mg/dL (0-150); Vitamin B12 872 pg/mL (193-986)
[2020-11-12 20:12] LABS: Vitamin D 25 Hydroxy 50 ng/mL (30-100)
== END 2020-11-08 08:17 | disposition home or self-care (01) ==
LOC: CHSLAB 08:19
PROVIDERS: PCP Internal Medicine; Visit Provider Internal Medicine
DX: E53.9 Vitamin B deficiency, unspecified (principal); E78.5 Hyperlipidemia, unspecified; M81.0 Age-related osteoporosis without current pathological fracture; U07.1 COVID-19
CPT/HCPCS: 36415; 80053; 80061; 81001; 82306; 82550; 82607; 85025; 86769

== ENCOUNTER 2020-11-26 11:27 | Outpatient (CLI) | payer MEDICARE, SELFPAY | END 2020-11-26 11:28 | disposition home or self-care (01) | LOC: CHSLAB 11:28 | PROVIDERS: PCP Internal Medicine; Visit Provider Internal Medicine | DX: C44.722 Squamous cell carcinoma of skin of right lower limb, including hip (principal) | CPT/HCPCS: 88305 ==

== ENCOUNTER 2021-04-05 16:28 | Emergency (ER) | payer MEDICARE, SELFPAY ==
[2021-04-05 16:45] VITALS: BP 170/96; PULSE 72; RESP 16; TEMP 36.4; O2SAT 97
[2021-04-05] MEDS: MECLIZINE HCL 25 MG TABLET PO (16:58)
[2021-04-05] MEDS: ONDANSETRON HCL ODT 4 MG TABLET PO (16:58)
--- NOTE | 2021-04-05 17:11 | ED.DIZZY ---
HPI - Dizziness General Source: patient and family Mode of arrival: ambulatory Limitations: no limitations History of Present Illness HPI Narrative: Patient has known history of vertigo, due to Meniere's disease. She has taken meclizine for this in the past. She had an attack of vertigo today, which appears to have been a mild attack, with some mild nausea, and mild vertigo. She took a meclizine earlier today and it did not seem to help much. She says her meclizine was apparently 2 or more years old and . MD elicited complaint: dizziness, lightheadedness, vertigo and disequilibrium Pertinent past history: inner ear problems and Meniere's disease Onset (ago): hour(s) Timing: sudden onset Severity: mild Description: room spinning , lightheadedness, difficulty walking and ongoing History of similar symptoms: Yes Exacerbating factors: movement/ambulation Relieving factors: remaining still, sleep and other (minimal help with old meclizine) Associated symptoms: nausea and other (no focal weakness whatsoever, but katie difficult ambulating secondary to vertigo) Related Data Home Medications Medication Instructions Recorded Confirmed carvedilol 3.125 mg PO BID 02/01/20 04/05/21 desmopressin 0.2 mg PO HS 02/01/20 04/05/21 lovastatin 40 mg PO HS 02/01/20 04/05/21 paroxetine HCl 20 mg PO DAILY 02/01/20 04/05/21 losartan 100 mg tablet 50 mg PO DAILY tablet 02/08/20 04/05/21 magnesium oxide 400 mg PO DAILY 04/05/21 04/05/21 Allergies Allergy/AdvReac Type Severity Reaction Status Date / Time adhesive tape Allergy Mild Rash Verified 04/05/20 09:11 iodine Allergy Mild Rash Verified 04/05/20 09:11 Sulfa (Sulfonamide Allergy Nausea Verified 04/05/20 09:11 Antibiotics) Review of Systems Constitutional: Constitutional: Reports no additional constitutional complaints Eyes: Eyes: Reports no additional eye complaints ENT: Reports system reviewed and no additional complaints, except as documented Cardiovascular: Cardiovascular: Reports no additional cardiovascular complaints Respiratory: Respiratory: Reports no additional respiratory complaints Gastrointestinal: Gastrointestinal: Reports no additional gastrointestinal complaints Genitourinary: Genitourinary: Reports no additional female genitourinary complaints Musculoskeletal: Musculoskeletal: Reports no additional musculoskeletal complaints Integumentary/Breasts: Skin/Breast: Reports system reviewed and no additional complaints, except as docu Neurologic: Reports system reviewed and no additional complaints, except as documented Psychiatric: Psychiatric: Reports no additional psychiatric complaints Endocrine: Endocrine: Reports no additional endocrine complaints Hematologic/Lymphatic: Hematologic/Lymphatic: Reports no additional hematologic/lymphatic complaints Allergic/Immunologic: Allergic/Immunologic: Reports no additional allergic/immunologic complaints [facility] Past Medical History Medical History (Updated 04/06/21 @ 05:22 by Bernabe De Jesus MD) Anxiety Depression Dyslipidemia Gall bladder disease Hypertension Kidney stones Meniere disease Surgical History Surgical History H/O foot surgery H/O: hysterectomy History of laparoscopic cholecystectomy 03/23/20 Family History Family History Father Colon cancer Mother Heart disease Social History Social History Smoking status: Never smoker Alcohol intake: never Substance use: never Gender identity (if verbalized by the patient): Female Exam Const: General: healthy appearing, no acute distress and alert Orientation/consciousness: patient oriented x3 HENMT: Head: normal to inspection Ears: TM's normal bilaterally and external ear abnormal General nose exam: Normal external nose present Mouth: Yes Abnormal oral and palatal mucosa pr
--- NOTE | 2021-04-05 17:29 | PC.NURSE ---
PT STATES SHE IS FEELING BETTER AFTER MEDICATIONS.
[2021-04-05 17:39] VITALS: BP 144/74; PULSE 70; RESP 16; O2SAT 98
== END 2021-04-05 18:05 | disposition home or self-care (01) ==
PROVIDERS: Emergency Provider Emergency Medicine; PCP Internal Medicine
DX: R42 Dizziness and giddiness (principal); I10 Essential (primary) hypertension
CPT/HCPCS: 99283; A9270

== ENCOUNTER 2021-05-03 08:11 | Outpatient (CLI) | payer MEDICARE, SELFPAY ==
[2021-05-03 08:24] LABS: Add Urine Microscopic? YES; Appearance Urine Clear (Clear); Basophils Absolute Auto 0.04 K/mm3 (0.00-0.10); Basophils Percent Auto 0.8 % (0.0-1.0); Bilirubin Urine Negative (Negative); Blood Urine 1+ (Negative); Color Urine Light Yellow (Yellow); Eosinophils Absolute Auto 0.17 K/mm3 (0.02-0.50); Eosinophils Percent Auto 3.3 % (1.0-6.0); Glucose Urine UA Negative (Negative); Hematocrit 40.6 % (35.0-42.0); Hemoglobin 13.6 g/dL (11.7-13.8); Immature Granulocyte Absolute 0.01 K/mm3 (0.00-0.00); Immature Granulocyte Percent A 0.2 % (0.0-0.0); Ketones Urine Negative (Negative); Leukocyte Esterase Ur Negative (Negative); Lymphocytes Absolute Auto 1.85 K/mm3 (1.10-4.50); Lymphocytes Percent Auto 35.8 % (18.0-42.0); Mean Corpuscular HGB Conc 33.5 g/dL (32.0-36.0); Mean Corpuscular Hemoglobin 32.5 pg (27.0-31.0); Mean Corpuscular Volume 97.1 fL (78.0-102.0); Mean Platelet Volume 9.8 fl (9.2-11.8); Monocytes Absolute Auto 0.38 K/mm3 (0.10-0.90); Monocytes Percent Auto 7.4 % (2.0-11.0); Neutrophils Absolute Auto 2.7 K/mm3 (1.7-7.2); Neutrophils Percent Auto 52.5 % (50.0-70.0); Nitrate Urine Negative (Negative); Platelet Count Result 250 K/mm3 (150-420); Protein Urine Negative (Negative); Red Blood Count 4.18 M/mm3 (4.20-5.40); Red Cell Distribution Width 12.1 % (11.6-14.4); Urobilinogen Urine 0.2 mg/dL (0.2-1.0); White Blood Count 5.2 K/mm3 (4.8-10.8)
[2021-05-03 08:32] LABS: Bacteria Urine 1+ /hpf; Squamous Epithelial Cell Urine Few /hpf (Few); WBC Urine 0-3 /hpf (0-3)
[2021-05-03 10:44] LABS: Alanine Aminotransferase 32 U/L (14-59); Albumin Level 4.1 g/dL (3.4-5.0); Alkaline Phosphatase 94 U/L (46-116); Anion Gap 9 mmol/L (8-16); Aspartate Amino Transferase 23 U/L (15-37); Bilirubin,Total 0.8 mg/dL (0.00-1.00); Blood Urea Nitrogen 20 mg/dL (7-18); Calcium 9.3 mg/dL (8.5-10.1); Carbon Dioxide 30 mmol/L (21-32); Chloride 97 mmol/L (98-108); Cholesterol 185 mg/dL (0-200); Creatine Kinase 131 U/L (26-192); Estimated Glomerular Filt Rate > 60; Glucose 93 mg/dL (70-99); HDL Direct 62 mg/dL (40-60); LDL Cholesterol Calculated 100 mg/dL (<130); Osmolality Calculated 284 mOsm/kg (285-295); Potassium 5.3 mmol/L (3.5-5.1); Sodium 136 mmol/L (136-145); Triglycerides 114 mg/dL (0-150); Vitamin B12 784 pg/mL (193-986)
== END 2021-05-03 08:12 | disposition home or self-care (01) ==
LOC: CHSLAB 08:14
PROVIDERS: PCP Internal Medicine; Visit Provider Internal Medicine
DX: E78.2 Mixed hyperlipidemia (principal); I10 Essential (primary) hypertension; N30.10 Interstitial cystitis (chronic) without hematuria; E53.8 Deficiency of other specified B group vitamins
CPT/HCPCS: 36415; 80053; 80061; 81001; 82550; 82607; 85025

== ENCOUNTER 2021-07-04 01:49 | Day surgery (SDC) | payer MEDICARE, OTHER, SELFPAY ==
[2021-06-20 13:26] VITALS: BMI 25.8
[2021-07-04 08:54] VITALS: BP 113/73; PULSE 81; RESP 18; TEMP 36.3; O2SAT 99
--- NOTE | 2021-07-04 09:09 | WPDGICN ---
Assessment and Plan Assessment and plan (1) History of colon polyps: Code(s): Z86.010 - Personal history of colonic polyps Status: Acute Assessment and Plan: Patient is a prior history of colon polyps 2015 but also has a family history of colon polyps in her sister and colon cancer in her father. Surveillance colonoscopy will be performed at this time. Follow-up exams depending on her health (2) Family history of colon cancer in father: Code(s): Z80.0 - Family history of malignant neoplasm of digestive organs Status: Acute (3) Family history of colonic polyps: Code(s): Z83.71 - Family history of colonic polyps Status: Acute GI Consult Note Consult date/time: 07/04/21 09:09 HPI: Qing Rock is a 80 year old female Presents for screening colonoscopy. Patient has a prior history of colon polyps. Most recently 2015. Family history is significant her sister had colon polyps in her father had colon cancer. Patient currently reports that her weight appetite bowel movements are normal. She denies abdominal pain. She has had no bleeding. Review of Systems Review of Systems: All systems reviewed & are unremarkable except as noted in HPI and below PMFSH Past Medical History Medical History (Updated 07/04/21 @ 09:12 by Bernabe Chaney MD) Anxiety Depression Dyslipidemia Gall bladder disease Hypertension Kidney stones Meniere disease Surgical History Surgical History H/O foot surgery H/O: hysterectomy History of laparoscopic cholecystectomy 03/23/20 Family History Family History Father Colon cancer Mother Heart disease Social History Social History Smoking status: Never smoker Alcohol intake: never Substance use: never Living arrangements: alone Gender identity (if verbalized by the patient): Female Spiritual care concerns: No Meds Home Medications and Allergies Home Medications Medication Instructions Recorded Confirmed Type carvedilol 3.125 mg PO BID 02/01/20 06/20/21 History desmopressin 0.2 mg PO HS 02/01/20 06/20/21 History lovastatin 40 mg PO HS 02/01/20 06/20/21 History paroxetine HCl 20 mg PO DAILY 02/01/20 06/20/21 History losartan 100 mg tablet 50 mg PO DAILY tablet 02/08/20 06/20/21 History magnesium oxide 400 mg PO DAILY 04/05/21 06/20/21 History ondansetron HCl [Zofran] 4 mg PO Q4H PRN #10 tablet 04/05/21 06/20/21 Rx esomeprazole magnesium 20 mg PO DAILY 06/20/21 06/20/21 History meclizine 25 mg PO TID PRN 06/20/21 06/20/21 History Allergies Allergy/AdvReac Type Severity Reaction Status Date / Time adhesive tape Allergy Mild Rash Verified 07/04/21 08:49 iodine Allergy Mild Rash Verified 07/04/21 08:49 Sulfa (Sulfonamide Allergy Nausea Verified 07/04/21 08:49 Antibiotics) Vital Signs Vital Signs - 24 hr 07/04/21 08:54 Temperature 97.4 F L Pulse Rate 81 Respiratory Rate 18 Blood Pressure 113/73 Pulse Oximetry 99 Exam Narrative: Physical exam reveals patient to be alert. Vital signs stable. HEENT exam is unremarkable. Patient is anicteric. Lungs are clear to auscultation and percussion. Heart is without murmur or extra sounds. Abdominal exam bowel sounds are present soft nontender with no organomegaly. Digital external rectal exam is normal.
[2021-07-04] MEDS: LACTATED RINGERS 1,000 ML 150 ML IV CONT (09:11)
--- NOTE | 2021-07-04 09:38 | WPDANESEPPF ---
Anes - Initial Pre Proc Eval Procedure: Operation Date: 07/04/21 10:00 Proposed Procedures p Screening Colonoscopy - Bernabe Chaney MD Date/Time: 07/04/21 09:38 Surgeon: Bernabe Chaney MD Pre Op Diagnosis: hx of colon polyps Patient Data Age: 80 Gender: F Height: 1.68 m Weight: 75.3 kg Last Vital Signs Temp 97.4 F L 07/04/21 08:54 Pulse 81 07/04/21 08:54 Resp 18 07/04/21 08:54 BP 113/73 07/04/21 08:54 Pulse Ox 99 07/04/21 08:54 Allergies Allergy/AdvReac Type Severity Reaction Status Date / Time adhesive tape Allergy Mild Rash Verified 07/04/21 08:49 iodine Allergy Mild Rash Verified 07/04/21 08:49 Sulfa (Sulfonamide Allergy Nausea Verified 07/04/21 08:49 Antibiotics) Home Medications Medication Instructions Recorded Confirmed Type carvedilol 3.125 mg PO BID 02/01/20 06/20/21 History desmopressin 0.2 mg PO HS 02/01/20 06/20/21 History lovastatin 40 mg PO HS 02/01/20 06/20/21 History paroxetine HCl 20 mg PO DAILY 02/01/20 06/20/21 History losartan 100 mg tablet 50 mg PO DAILY tablet 02/08/20 06/20/21 History magnesium oxide 400 mg PO DAILY 04/05/21 06/20/21 History ondansetron HCl [Zofran] 4 mg PO Q4H PRN #10 tablet 04/05/21 06/20/21 Rx esomeprazole magnesium 20 mg PO DAILY 06/20/21 06/20/21 History meclizine 25 mg PO TID PRN 06/20/21 06/20/21 History Patient hx anesthesia problems: none Family hx anesthesia problems: none Results Review: All pre-operative results and documents have been reviewed as part of the pre-operative evaluation. [facility] Past Medical History Medical History (Updated 07/04/21 @ 09:12 by Bernabe Chaney MD) Anxiety Depression Dyslipidemia Gall bladder disease Hypertension Kidney stones Meniere disease Surgical History Surgical History H/O foot surgery H/O: hysterectomy History of laparoscopic cholecystectomy 03/23/20 Family History Family History Father Colon cancer Mother Heart disease Social History Social History Smoking status: Never smoker Alcohol intake: never Substance use: never Living arrangements: alone Gender identity (if verbalized by the patient): Female Spiritual care concerns: No Anes - Eval Final PreProcedure Day of Procedure 07/04/21 09:38 Patient weight: overweight Heart: regular rate and rhythm Lungs: clear to auscultation Airway: Mallampati scale class II Neurological: alert and oriented Last oral intake: >/= 8 hours ASA classification: III Emergent: no Anesthetic plan: proceed Anesthesia type and monitoring: general GIVS and standard monitoring Results Review: All pre-operative results and documents have been reviewed as part of the pre-operative evaluation. Informed Consent: The patient's anesthetic plan and its attendant risks and benefits were discussed with the patient/family/POA. Questions were solicited and answers provided to the satisfaction of the patient/family/POA.
[2021-07-04 10:00] VITALS: BP 106/67; PULSE 72; RESP 18; O2SAT 100
[2021-07-04 10:10] VITALS: BP 111/64; PULSE 70; RESP 18; O2SAT 100
[2021-07-04 10:20] VITALS: BP 122/76; PULSE 68; RESP 16; O2SAT 100
== END 2021-07-04 10:37 | disposition home or self-care (01) ==
PROVIDERS: PCP Internal Medicine; Visit Provider Internal Medicine Gastroenterology
PROC: 0DJD8ZZ Inspection of Lower Intestinal Tract, Via Natural or Artificial Opening Endoscopic (ICD-10-PCS; CPT 45378; principal; 2021-07-04 10:00)
DX: Z12.11 Encounter for screening for malignant neoplasm of colon (principal); K64.8 Other hemorrhoids; K57.30 Diverticulosis of large intestine without perforation or abscess without bleeding; Z86.010 Personal history of colon polyps; Z80.0 Family history of malignant neoplasm of digestive organs; Z83.71 Family history of colonic polyps; I10 Essential (primary) hypertension; E78.5 Hyperlipidemia, unspecified; F41.8 Other specified anxiety disorders
CPT/HCPCS: G0105; J2704; J7120

== ENCOUNTER 2021-09-04 10:57 | Outpatient (CLI) | payer MEDICARE, OTHER, SELFPAY | END 2021-09-04 10:58 | disposition home or self-care (01) | LOC: CHSAUDIO 11:00 | PROVIDERS: PCP Internal Medicine; Visit Provider Internal Medicine | DX: H91.93 Unspecified hearing loss, bilateral (principal) | CPT/HCPCS: 92557; 92567 ==

== ENCOUNTER 2021-09-13 10:20 | Outpatient (CLI) | payer MEDICARE, OTHER, SELFPAY ==
--- NOTE | ~2021-09-13 | CT_ITS ---
EXAMINATION: CT facial bones wo con DATE: 09/13/2021 10:44 INDICATION: Pain in the left temporomandibular joint. TECHNIQUE: Computed tomography (CT) of the facial bones and maxillofacial region was performed withou t intravenous contrast with mouth opening and with mouth closed. Automated exposure control and itera tive reconstruction technique were employed. The dose-length product was 600.03 mGy-cm. COMPARISON: CT maxillofacial 02/08/2018 FINDINGS: There are likely changes of ocular lens replacement surgeries. There is mild mucosal thicke mesfin in the paranasal sinuses. There is leftward deviation of the nasal septum. There is severe cervi eliezer spondylosis. The mandibular condyles are normal in morphology. The mandibular condyles are in nor mal position with the mouth closed. There is greater than expected anterior translation of the right mandibular condyle in the open mouth position. There is normal anterior translation of the left hakeem bular condyle in the open-mouth position. IMPRESSION: 1. No etiology for pain at the left temporomandibular joint. Reviewed, dictated and finalized at location A. GENCY CARE ATTENDANT
== END 2021-09-13 10:21 | disposition home or self-care (01) ==
LOC: CHSIMG 10:23
PROVIDERS: PCP Internal Medicine; Visit Provider Internal Medicine
DX: M26.622 Arthralgia of left temporomandibular joint (principal)
CPT/HCPCS: 70486

== ENCOUNTER 2021-11-20 08:07 | Outpatient (CLI) | payer MEDICARE, SELFPAY ==
[2021-11-20 08:29] LABS: Add Urine Microscopic? YES; Appearance Urine Clear (Clear); Bilirubin Urine Negative (Negative); Blood Urine 2+ (Negative); Color Urine Yellow (Yellow); Glucose Urine UA Negative (Negative); Ketones Urine Negative (Negative); Leukocyte Esterase Ur Negative (Negative); Nitrate Urine Negative (Negative); Protein Urine Negative (Negative); Specific Grav Ur 1.025 (1.010-1.020); Urobilinogen Urine 0.2 mg/dL (0.2-1.0)
[2021-11-20 08:31] LABS: Basophils Absolute Auto 0.04 K/mm3 (0.00-0.10); Basophils Percent Auto 0.7 % (0.0-1.0); Eosinophils Absolute Auto 0.26 K/mm3 (0.02-0.50); Eosinophils Percent Auto 4.6 % (1.0-6.0); Hemoglobin 13.7 g/dL (11.7-13.8); Immature Granulocyte Absolute 0.01 K/mm3 (0.00-0.00); Immature Granulocyte Percent A 0.2 % (0.0-0.0); Lymphocytes Absolute Auto 2.23 K/mm3 (1.10-4.50); Lymphocytes Percent Auto 39.7 % (18.0-42.0); Mean Corpuscular HGB Conc 32.6 g/dL (32.0-36.0); Mean Corpuscular Hemoglobin 32.8 pg (27.0-31.0); Mean Corpuscular Volume 100.5 fL (78.0-102.0); Monocytes Absolute Auto 0.41 K/mm3 (0.10-0.90); Monocytes Percent Auto 7.3 % (2.0-11.0); Neutrophils Absolute Auto 2.7 K/mm3 (1.7-7.2); Neutrophils Percent Auto 47.5 % (50.0-70.0); Platelet Count Result 250 K/mm3 (150-420); Red Blood Count 4.18 M/mm3 (4.20-5.40); White Blood Count 5.6 K/mm3 (4.8-10.8)
[2021-11-20 08:34] LABS: WBC Urine 0-3 /hpf (0-3)
[2021-11-20 08:35] LABS: Bacteria Urine Trace /hpf; Mucus Urine Moderate /lpf; Squamous Epithelial Cell Urine Few /hpf (Few)
[2021-11-20 09:31] LABS: Alanine Aminotransferase 27 U/L (14-59); Alkaline Phosphatase 98 U/L (46-116); Anion Gap 9 mmol/L (8-16); Aspartate Amino Transferase 21 U/L (15-37); Bilirubin,Total 0.5 mg/dL (0.00-1.00); Blood Urea Nitrogen 23 mg/dL (7-18); Calcium 9.6 mg/dL (8.5-10.1); Carbon Dioxide 31 mmol/L (21-32); Chloride 101 mmol/L (98-108); Cholesterol 198 mg/dL (0-200); Creatine Kinase 61 U/L (26-192); Estimated Glomerular Filt Rate > 60; Glucose 93 mg/dL (70-99); HDL Direct 63 mg/dL (40-60); LDL Cholesterol Calculated 106 mg/dL (<130); Osmolality Calculated 295 mOsm/kg (285-295); Potassium 5.4 mmol/L (3.5-5.1); Sodium 141 mmol/L (136-145); Total Protein 6.9 g/dL (6.4-8.2); Triglycerides 146 mg/dL (0-150); Vitamin B12 799 pg/mL (193-986)
[2021-11-22 14:34] LABS: Vitamin D 25 Hydroxy 34 ng/mL (30-100)
== END 2021-11-20 08:08 | disposition home or self-care (01) ==
LOC: CHSLAB 08:09
PROVIDERS: PCP Internal Medicine; Visit Provider Internal Medicine
DX: E78.2 Mixed hyperlipidemia (principal); I10 Essential (primary) hypertension; N30.10 Interstitial cystitis (chronic) without hematuria; E53.9 Vitamin B deficiency, unspecified; M81.0 Age-related osteoporosis without current pathological fracture
CPT/HCPCS: 36415; 80053; 80061; 81001; 82306; 82550; 82607; 85025

== ENCOUNTER 2021-12-12 08:51 | Outpatient (CLI) | payer MEDICARE, OTHER, SELFPAY ==
--- NOTE | ~2021-12-12 | DEXA_ITS ---
Bone Density Report Name: JACOB KAPADIA Age: 81 Sex: Female Ethnicity: White Date of : 1940 Indication: postmenopausal; screening for osteoporosis; parental hip fracture; height loss; prior fracture; hysterectomy; Referring Provider: Liliam Espinoza Study: Bone densitometry was performed. Exam Date: December 12, 2021 Accession number: [id number] Bone Density: Region BMD T-score Z-score Classification AP Spine(L1-L4) 1.175 1.2 3.9 Normal Femoral Neck (Left) 0.669 -1.6 0.8 Osteopenia Total Hip (Left) 0.828 -0.9 1.2 Normal Femoral Neck (Right) 0.654 -1.8 0.6 Osteopenia Total Hip (Right) 0.780 -1.3 0.8 Osteopenia Femoral Neck Mean 0.661 -1.7 0.7 Osteopenia Total Hip Mean 0.804 -1.1 1.0 Osteopenia World Health Organization criteria for BMD impression classify patients as: Normal (T-score at or above -1.0), Osteopenia (T-score between -1.0 and -2.5), or Osteoporosis (T-score at or below -2.5). 10-year Fracture Risk(1): Major Osteoporotic Fracture 34% Hip Fracture 20% Reported Risk Factors: [place] (), Neck BMD=0.654, BMI=28.7, previous fracture, parental fracture (1) FRAX(R) Version 3.08. Fracture probability calculated for an untreated patient. Fracture probability may be lower if the patient has received treatment. Clinical Information Provided by Patient: Have had a previous hip or vertebral fracture Has had a low trauma fracture Parent has had a hip fracture Has used the following medications: Vitamin D Has the following medical conditions: Hysterectomy Patient maximum height was 67 Menopause Age: 39 Drinks caffeinated beverages Onset of menses at age 13 Number of children 3 Impression: The patient has low bone mass, based on the Right Femoral Neck T-score. The patient has risk factors, including: parental hip fracture, previous fracture. Discussion: INCREASED RISK OF FRACTURE DUE TO HISTORY OF FRACTURE. The patient's previous fracture puts the patient at high risk of a future fracture. In untreated patients, the risk of osteoporotic fracture increases approximately two-fold for each 1.0 SD decrease in T-score. Low bone density is not the only risk factor for fracture; also consider factors such as patient's age, frailty or poor health, risk of falling, risk of injury, previous osteoporotic fracture, family history of osteoporosis, cigarette smoking, low body weight, etc. Not everyone with a low trauma fracture has osteoporosis; osteomalacia and other metabolic bone disorders should also be considered. Patients who have osteoporosis should be evaluated for specific diseases and conditions (secondary causes) that may cause or contribute to bone loss and fracture risk. National Osteoporosis Foundation (NOF) recommends pharmacologic
[2021-12-12 09:42] VITALS: BP 128/74; PULSE 72; RESP 14; TEMP 36.8; O2SAT 98; BMI 28.3
[2021-12-12] MEDS: ZOLEDRONIC ACID 5 MG/100 ML 100 ML 400 MG IVPB (09:45)
--- NOTE | 2021-12-12 10:08 | PC.NURSE ---
Patient here for yearly Reclast IV infusion. Education on medication given. No concerns voiced. IV Reclast administered. See MAR. Tolerated well. Safe exit of hospital.
== END 2021-12-12 08:52 | disposition home or self-care (01) ==
LOC: CHSIMG 08:53 → CHSTREATRM 09:36
PROVIDERS: PCP Internal Medicine; Visit Provider Internal Medicine
DX: M81.0 Age-related osteoporosis without current pathological fracture (principal)
CPT/HCPCS: 77080; 96365; 96374; J3489

== ENCOUNTER 2022-05-13 08:07 | Outpatient (CLI) | payer MEDICARE, SELFPAY ==
[2022-05-13 08:27] LABS: Basophils Absolute Auto 0.04 K/mm3 (0.00-0.10); Basophils Percent Auto 0.7 % (0.0-1.0); Eosinophils Percent Auto 1.8 % (1.0-6.0); Hematocrit 42.9 % (35.0-42.0); Hemoglobin 13.8 g/dL (11.7-13.8); Immature Granulocyte Absolute 0.02 K/mm3 (0.00-0.00); Immature Granulocyte Percent A 0.4 % (0.0-0.0); Lymphocytes Absolute Auto 2.04 K/mm3 (1.10-4.50); Lymphocytes Percent Auto 37.3 % (18.0-42.0); Mean Corpuscular HGB Conc 32.2 g/dL (32.0-36.0); Mean Corpuscular Hemoglobin 31.4 pg (27.0-31.0); Mean Corpuscular Volume 97.5 fL (78.0-102.0); Mean Platelet Volume 9.9 fl (9.2-11.8); Monocytes Absolute Auto 0.37 K/mm3 (0.10-0.90); Monocytes Percent Auto 6.8 % (2.0-11.0); Neutrophils Absolute Auto 2.9 K/mm3 (1.7-7.2); Platelet Count Result 257 K/mm3 (150-420); Red Cell Distribution Width 11.9 % (11.6-14.4); White Blood Count 5.5 K/mm3 (4.8-10.8)
[2022-05-13 08:28] LABS: Add Urine Microscopic? YES; Appearance Urine Clear (Clear); Bilirubin Urine Negative (Negative); Blood Urine 1+ (Negative); Color Urine Light Yellow (Yellow); Glucose Urine UA Negative (Negative); Ketones Urine Negative (Negative); Leukocyte Esterase Ur Negative (Negative); Nitrate Urine Negative (Negative); Protein Urine Negative (Negative); Specific Grav Ur 1.015 (1.010-1.020); Urobilinogen Urine 0.2 mg/dL (0.2-1.0)
[2022-05-13 08:34] LABS: Bacteria Urine Trace /hpf; Squamous Epithelial Cell Urine Few /hpf (Few); WBC Urine 0-3 /hpf (0-3)
[2022-05-13 09:09] LABS: Alanine Aminotransferase 25 U/L (14-59); Alkaline Phosphatase 87 U/L (46-116); Anion Gap 4 mmol/L (8-16); Aspartate Amino Transferase 24 U/L (15-37); Bilirubin,Total 0.6 mg/dL (0.00-1.00); Blood Urea Nitrogen 13 mg/dL (7-18); Calcium 9.4 mg/dL (8.5-10.1); Carbon Dioxide 31 mmol/L (21-32); Chloride 98 mmol/L (98-108); Cholesterol 186 mg/dL (0-200); Creatine Kinase 68 U/L (26-192); Estimated Glomerular Filt Rate > 60; Glucose 94 mg/dL (70-99); HDL Direct 64 mg/dL (40-60); LDL Cholesterol Calculated 98 mg/dL (<130); Osmolality Calculated 276 mOsm/kg (285-295); Potassium 4.8 mmol/L (3.5-5.1); Sodium 133 mmol/L (136-145); Total Protein 7.2 g/dL (6.4-8.2); Triglycerides 122 mg/dL (0-150); Vitamin B12 883 pg/mL (193-986)
[2022-05-18 17:09] LABS: Vitamin D 25 Hydroxy 36 ng/mL (30-100)
== END 2022-05-13 08:08 | disposition home or self-care (01) ==
LOC: CHSLAB 08:10
PROVIDERS: PCP Internal Medicine; Visit Provider Internal Medicine
DX: E53.8 Deficiency of other specified B group vitamins (principal); I10 Essential (primary) hypertension; N30.10 Interstitial cystitis (chronic) without hematuria; M81.0 Age-related osteoporosis without current pathological fracture
CPT/HCPCS: 36415; 80053; 80061; 81001; 82306; 82550; 82607; 85025

== ENCOUNTER 2022-11-25 07:58 | Outpatient (CLI) | payer MEDICARE, SELFPAY ==
[2022-11-25 08:12] LABS: Appearance Urine Clear (Clear); Basophils Absolute Auto 0.05 K/mm3 (0.00-0.10); Basophils Percent Auto 0.9 % (0.0-1.0); Bilirubin Urine Negative (Negative); Blood Urine 2+ (Negative); Color Urine Yellow (Yellow); Eosinophils Absolute Auto 0.13 K/mm3 (0.02-0.50); Eosinophils Percent Auto 2.3 % (1.0-6.0); Glucose Urine UA Negative (Negative); Hematocrit 40.6 % (35.0-42.0); Hemoglobin 13.2 g/dL (11.7-13.8); Immature Granulocyte Absolute 0.01 K/mm3 (0.00-0.00); Immature Granulocyte Percent A 0.2 % (0.0-0.0); Ketones Urine Negative (Negative); Leukocyte Esterase Ur Trace (Negative); Lymphocytes Absolute Auto 2.18 K/mm3 (1.10-4.50); Lymphocytes Percent Auto 38.8 % (18.0-42.0); Mean Corpuscular HGB Conc 32.5 g/dL (32.0-36.0); Mean Corpuscular Volume 98.5 fL (78.0-102.0); Mean Platelet Volume 9.7 fl (9.2-11.8); Monocytes Absolute Auto 0.42 K/mm3 (0.10-0.90); Monocytes Percent Auto 7.5 % (2.0-11.0); Neutrophils Absolute Auto 2.8 K/mm3 (1.7-7.2); Neutrophils Percent Auto 50.3 % (50.0-70.0); Nitrate Urine Negative (Negative); Platelet Count Result 235 K/mm3 (150-420); Protein Urine Negative (Negative); Red Blood Count 4.12 M/mm3 (4.20-5.40); Specific Grav Ur >= 1.030 (1.010-1.020); Urobilinogen Urine 0.2 mg/dL (0.2-1.0); White Blood Count 5.6 K/mm3 (4.8-10.8); pH Urine 5.5 (5.0-8.0)
[2022-11-25 08:17] LABS: Add Urine Microscopic? YES; Bacteria Urine Trace /hpf; Mucus Urine Moderate /lpf; Squamous Epithelial Cell Urine Few /hpf (Few); WBC Urine 0-3 /hpf (0-3)
[2022-11-25 09:10] LABS: Alanine Aminotransferase 26 U/L (14-59); Alkaline Phosphatase 84 U/L (46-116); Anion Gap 7 mmol/L (8-16); Aspartate Amino Transferase 23 U/L (15-37); Bilirubin,Total 0.5 mg/dL (0.00-1.00); Blood Urea Nitrogen 20 mg/dL (7-18); Carbon Dioxide 32 mmol/L (21-32); Chloride 101 mmol/L (98-108); Cholesterol 196 mg/dL (0-200); Creatine Kinase 61 U/L (26-192); Estimated Glomerular Filt Rate > 60; Glucose 93 mg/dL (70-99); HDL Direct 67 mg/dL (40-60); LDL Cholesterol Calculated 108 mg/dL (<130); Osmolality Calculated 292 mOsm/kg (285-295); Potassium 4.9 mmol/L (3.5-5.1); Sodium 140 mmol/L (136-145); Total Protein 6.9 g/dL (6.4-8.2); Triglycerides 107 mg/dL (0-150); Vitamin B12 1233 pg/mL (193-986)
== END 2022-11-25 07:59 | disposition home or self-care (01) ==
LOC: CHSLAB 08:00
PROVIDERS: PCP Internal Medicine; Visit Provider Internal Medicine
DX: I10 Essential (primary) hypertension (principal); E78.2 Mixed hyperlipidemia; E53.8 Deficiency of other specified B group vitamins; N30.10 Interstitial cystitis (chronic) without hematuria
CPT/HCPCS: 36415; 80053; 80061; 81001; 82550; 82607; 85025

== ENCOUNTER 2022-12-25 08:43 | Outpatient (CLI) | payer MEDICARE, OTHER, SELFPAY ==
[2022-12-25 08:52] VITALS: BMI 25.9
[2022-12-25] MEDS: ZOLEDRONIC ACID 5 MG/100 ML 100 ML 300 MG IVPB (09:05)
[2022-12-25 09:07] VITALS: BP 121/68; PULSE 72; RESP 16; TEMP 36.6; O2SAT 97
--- NOTE | 2022-12-25 09:17 | PC.NURSE ---
Patient here for yearly IV Reclast infusion. Reports no problems after getting it last year. Education given. No concerns voiced. IV Reclast infusion administered. SEE MAR. Tolerated well. Safe exit of hospital per ambulatory self.
== END 2022-12-25 08:44 | disposition home or self-care (01) ==
LOC: CHSTREATRM 08:48
PROVIDERS: PCP Internal Medicine; Visit Provider Internal Medicine
DX: M81.0 Age-related osteoporosis without current pathological fracture (principal)
CPT/HCPCS: 96374; J3489

== ENCOUNTER 2023-04-09 11:40 | Outpatient (CLI) | payer MEDICARE, SELFPAY ==
[2023-04-09 12:02] LABS: Basophils Absolute Auto 0.05 K/mm3 (0.00-0.10); Basophils Percent Auto 0.7 % (0.0-1.0); Eosinophils Absolute Auto 0.06 K/mm3 (0.02-0.50); Eosinophils Percent Auto 0.9 % (1.0-6.0); Hemoglobin 13.2 g/dL (11.7-13.8); Immature Granulocyte Absolute 0.03 K/mm3 (0.00-0.00); Immature Granulocyte Percent A 0.4 % (0.0-0.0); Lymphocytes Absolute Auto 1.91 K/mm3 (1.10-4.50); Lymphocytes Percent Auto 27.2 % (18.0-42.0); Mean Corpuscular HGB Conc 33.8 g/dL (32.0-36.0); Mean Corpuscular Hemoglobin 32.8 pg (27.0-31.0); Mean Corpuscular Volume 96.8 fL (78.0-102.0); Mean Platelet Volume 8.6 fl (9.2-11.8); Monocytes Absolute Auto 0.52 K/mm3 (0.10-0.90); Monocytes Percent Auto 7.4 % (2.0-11.0); Neutrophils Absolute Auto 4.5 K/mm3 (1.7-7.2); Neutrophils Percent Auto 63.4 % (50.0-70.0); Platelet Count Result 284 K/mm3 (150-420); Red Blood Count 4.03 M/mm3 (4.20-5.40); Red Cell Distribution Width 12.8 % (11.6-14.4)
[2023-04-09 13:17] LABS: Alanine Aminotransferase 35 U/L (14-59); Albumin Level 3.9 g/dL (3.4-5.0); Alkaline Phosphatase 74 U/L (46-116); Anion Gap 5 mmol/L (8-16); Aspartate Amino Transferase 21 U/L (15-37); Bilirubin,Total 0.6 mg/dL (0.00-1.00); Blood Urea Nitrogen 13 mg/dL (7-18); Calcium 9.3 mg/dL (8.5-10.1); Carbon Dioxide 32 mmol/L (21-32); Chloride 92 mmol/L (98-108); Estimated Glomerular Filt Rate > 60; Free T3 2.35 pg/mL (2.18-3.98); Free T4 Free Thyroxine 1.06 ng/dL (0.76-1.46); Glucose 97 mg/dL (70-99); Magnesium 2.1 mg/dL (1.8-2.4); Osmolality Calculated 268 mOsm/kg (285-295); Potassium 5.5 mmol/L (3.5-5.1); Sodium 129 mmol/L (136-145); Thyroid Stimulating Hormone 2.09 uIU/mL (0.36-3.74); Total Protein 6.7 g/dL (6.4-8.2); Vitamin B12 1407 pg/mL (193-986)
== END 2023-04-09 11:41 | disposition home or self-care (01) ==
LOC: CHSLAB 11:41
PROVIDERS: PCP Internal Medicine; Visit Provider Internal Medicine
DX: G25.81 Restless legs syndrome (principal); I10 Essential (primary) hypertension; K58.1 Irritable bowel syndrome with constipation; E53.8 Deficiency of other specified B group vitamins
CPT/HCPCS: 36415; 80053; 82607; 83735; 84439; 84443; 84481; 85025

== ENCOUNTER 2023-04-15 11:27 | Outpatient (CLI) | payer MEDICARE, SELFPAY ==
[2023-04-15 11:48] LABS: Basophils Absolute Auto 0.06 K/mm3 (0.00-0.10); Basophils Percent Auto 0.8 % (0.0-1.0); Eosinophils Absolute Auto 0.06 K/mm3 (0.02-0.50); Eosinophils Percent Auto 0.8 % (1.0-6.0); Hematocrit 39.5 % (35.0-42.0); Immature Granulocyte Absolute 0.02 K/mm3 (0.00-0.00); Immature Granulocyte Percent A 0.3 % (0.0-0.0); Lymphocytes Absolute Auto 1.98 K/mm3 (1.10-4.50); Lymphocytes Percent Auto 25.5 % (18.0-42.0); Mean Corpuscular HGB Conc 32.9 g/dL (32.0-36.0); Mean Corpuscular Volume 100.3 fL (78.0-102.0); Mean Platelet Volume 8.5 fl (9.2-11.8); Monocytes Absolute Auto 0.58 K/mm3 (0.10-0.90); Monocytes Percent Auto 7.5 % (2.0-11.0); Neutrophils Absolute Auto 5.1 K/mm3 (1.7-7.2); Neutrophils Percent Auto 65.1 % (50.0-70.0); Platelet Count Result 300 K/mm3 (150-420); Red Blood Count 3.94 M/mm3 (4.20-5.40); Red Cell Distribution Width 13.2 % (11.6-14.4); White Blood Count 7.8 K/mm3 (4.8-10.8)
[2023-04-15 13:08] LABS: Alanine Aminotransferase 35 U/L (14-59); Albumin Level 3.8 g/dL (3.4-5.0); Alkaline Phosphatase 87 U/L (46-116); Anion Gap 7 mmol/L (8-16); Aspartate Amino Transferase 19 U/L (15-37); Bilirubin,Total 0.7 mg/dL (0.00-1.00); Blood Urea Nitrogen 15 mg/dL (7-18); Calcium 9.9 mg/dL (8.5-10.1); Carbon Dioxide 33 mmol/L (21-32); Chloride 98 mmol/L (98-108); Estimated Glomerular Filt Rate > 60; Glucose 89 mg/dL (70-99); Osmolality Calculated 285 mOsm/kg (285-295); Potassium 5.3 mmol/L (3.5-5.1); Sodium 138 mmol/L (136-145); Total Protein 6.7 g/dL (6.4-8.2)
== END 2023-04-15 11:28 | disposition home or self-care (01) ==
LOC: CHSLAB 11:29
PROVIDERS: PCP Internal Medicine; Visit Provider Internal Medicine
DX: R19.7 Diarrhea, unspecified (principal)
CPT/HCPCS: 36415; 80053; 85025

== ENCOUNTER 2023-06-04 08:33 | Outpatient (CLI) | payer MEDICARE, SELFPAY ==
[2023-06-04 08:45] LABS: Basophils Absolute Auto 0.05 K/mm3 (0.00-0.10); Basophils Percent Auto 0.8 % (0.0-1.0); Eosinophils Absolute Auto 0.09 K/mm3 (0.02-0.50); Eosinophils Percent Auto 1.4 % (1.0-6.0); Hematocrit 42.3 % (35.0-42.0); Hemoglobin 13.9 g/dL (11.7-13.8); Immature Granulocyte Absolute 0.03 K/mm3 (0.00-0.00); Immature Granulocyte Percent A 0.5 % (0.0-0.0); Lymphocytes Absolute Auto 2.13 K/mm3 (1.10-4.50); Lymphocytes Percent Auto 34.3 % (18.0-42.0); Mean Corpuscular HGB Conc 32.9 g/dL (32.0-36.0); Mean Corpuscular Hemoglobin 33.3 pg (27.0-31.0); Mean Corpuscular Volume 101.2 fL (78.0-102.0); Monocytes Absolute Auto 0.41 K/mm3 (0.10-0.90); Monocytes Percent Auto 6.6 % (2.0-11.0); Neutrophils Absolute Auto 3.5 K/mm3 (1.7-7.2); Neutrophils Percent Auto 56.4 % (50.0-70.0); Platelet Count Result 233 K/mm3 (150-420); Red Blood Count 4.18 M/mm3 (4.20-5.40); Red Cell Distribution Width 12.2 % (11.6-14.4); White Blood Count 6.2 K/mm3 (4.8-10.8)
[2023-06-04 08:46] LABS: Appearance Urine Clear (Clear); Bilirubin Urine Negative (Negative); Blood Urine 2+ (Negative); Color Urine Light Yellow (Yellow); Glucose Urine UA Negative (Negative); Ketones Urine Negative (Negative); Leukocyte Esterase Ur Trace (Negative); Nitrate Urine Negative (Negative); Protein Urine Negative (Negative); Urobilinogen Urine 0.2 mg/dL (0.2-1.0)
[2023-06-04 08:51] LABS: Add Urine Microscopic? YES; Bacteria Urine Trace /hpf; Squamous Epithelial Cell Urine Few /hpf (Few); WBC Urine 0-3 /hpf (0-3)
[2023-06-04 09:11] LABS: Alanine Aminotransferase 21 U/L (14-59); Albumin Level 3.5 g/dL (3.4-5.0); Alkaline Phosphatase 78 U/L (46-116); Anion Gap 5 mmol/L (8-16); Aspartate Amino Transferase 20 U/L (15-37); Bilirubin,Total 0.6 mg/dL (0.00-1.00); Blood Urea Nitrogen 11 mg/dL (7-18); Calcium 9.6 mg/dL (8.5-10.1); Carbon Dioxide 34 mmol/L (21-32); Chloride 100 mmol/L (98-108); Cholesterol 216 mg/dL (0-200); Creatine Kinase 58 U/L (26-192); Estimated Glomerular Filt Rate > 60; Glucose 93 mg/dL (70-99); HDL Direct 72 mg/dL (40-60); LDL Cholesterol Calculated 121 mg/dL (<130); Osmolality Calculated 287 mOsm/kg (285-295); Sodium 139 mmol/L (136-145); Total Protein 6.5 g/dL (6.4-8.2); Triglycerides 114 mg/dL (0-150)
== END 2023-06-04 08:34 | disposition home or self-care (01) ==
LOC: CHSLAB 08:34
PROVIDERS: PCP Internal Medicine; Visit Provider Internal Medicine
DX: M81.0 Age-related osteoporosis without current pathological fracture (principal); E53.8 Deficiency of other specified B group vitamins; I10 Essential (primary) hypertension; E78.2 Mixed hyperlipidemia
CPT/HCPCS: 36415; 80053; 80061; 81001; 82550; 85025

== ENCOUNTER 2023-07-13 10:05 | Outpatient (CLI) | payer MEDICARE, SELFPAY | END 2023-07-13 10:06 | disposition home or self-care (01) | LOC: CHSLAB 10:07 | PROVIDERS: PCP Internal Medicine; Visit Provider Internal Medicine | DX: R19.7 Diarrhea, unspecified (principal) | CPT/HCPCS: 87324 ==

== ENCOUNTER 2023-08-13 16:08 | Outpatient (CLI) | payer MEDICARE, OTHER, SELFPAY ==
--- NOTE | ~2023-08-13 | XR_ITS ---
EXAMINATION: XR lumbar spine 2-3V, XR sacroiliac joints min 3V DATE: 08/13/2023 16:29 INDICATION: Low back and bilateral sacroiliac joint pain TECHNIQUE: 1. Anteroposterior and lateral views of the lumbar spine, and cone-down lateral view of the lumbosacr al junction were obtained. 2. AP and left and right oblique views of the bilateral sacral iliac joints were obtained. COMPARISON: CT abdomen pelvis dated 03/12/2019 FINDINGS: Lumbar spine: 15 degree thoracic scoliosis between T11 and L3. Sagittal alignment is normal. Vertebral body heights are normal. Severe disc height loss with associated degenerative endplate changes at L1-L2 and L2-L3 and L5-S1. Moderate disc height loss at L3-L4 and L4-L5. Mild disc height loss at the visualized low er thoracic spine. Multilevel severe lumbar facet osteoarthritis. Cholecystectomy clips in right uppe r quadrant. Sacroiliac joints: Severe bilateral sacroiliac osteoarthritis with ankylosis across much of the left sacroiliac joint an d smaller portion of the right sacroiliac joint. Sacral arches are intact. IMPRESSION: 1. Mild thoracolumbar dextroscoliosis with severe lumbar spondylosis. 2. Ankylosis across the bilateral sacroiliac joints, left more advanced than right. Reviewed, dictated and finalized at location A. MANAGER IMPRESSION: 1. Mild thoracolumbar dextroscoliosis with severe lumbar spondylosis. 2. Ankylosis across the bilateral sacroiliac joints, left more advanced than ri ght.
== END 2023-08-13 16:09 | disposition home or self-care (01) ==
PROVIDERS: PCP Internal Medicine; Visit Provider Internal Medicine
DX: M54.50 Low back pain, unspecified (principal); M41.85 Other forms of scoliosis, thoracolumbar region; M43.28 Fusion of spine, sacral and sacrococcygeal region
CPT/HCPCS: 72100; 72202

== ENCOUNTER 2023-08-17 09:53 | Outpatient (CLI) | payer MEDICARE, SELFPAY ==
[2023-08-17 10:50] LABS: CRP < 0.5 mg/dL (0.0-0.9)
[2023-08-17 11:18] LABS: Erythrocyte Sedimentation Rate 24 mm/hr (0-20)
[2023-08-19 20:49] LABS: HLA B27 Negative (Negative)
== END 2023-08-17 09:54 | disposition home or self-care (01) ==
LOC: CHSLAB 09:56
PROVIDERS: PCP Internal Medicine; Visit Provider Internal Medicine
DX: M45.9 Ankylosing spondylitis of unspecified sites in spine (principal)
CPT/HCPCS: 36415; 85652; 86140; 86812

== ENCOUNTER 2023-08-17 13:39 | Outpatient (RCR) | payer MEDICARE, OTHER, SELFPAY ==
--- NOTE | 2023-08-27 07:39 | OPREHPOC ---
Outpatient Therapy Plan of Care This is a Multidisciplinary Plan of Care that may contain components documented by all disciplines (PT, OT, and ST.) PT Problem 1 PT Problem #1 Knowledge Deficit PT Goal 1 Goal independent and compliant with HEP Target Visit 6 PT Problem 2 PT Problem #2 Pain PT Goal 1 Goal decrease pain at worst in the lower back to 4/10 or less with standing and upright activities. PT Problem 3 PT Problem #3 Impaired Range of Motion PT Goal 1 Goal improve lumbar extension active mobility to 20 degrees improve lumbar sidebending active mobility to 20 degrees without pain Target Visit 12 PT Problem 4 PT Problem #4 Impaired Strength PT Goal 1 Goal improve bilateral hip strength to 5/5 or better. patient to display ability to hold PPT with eccentric hip flexion to 30 degrees or lower from the table. Target Visit 12 PT Problem 5 PT Problem #5 Impaired Functional Mobil PT Goal 1 Goal oswestry to display less than 45% functional deficits patient to ambulate 6 minutes for 800ft or more to improve community ambulation patient to report return to shopping for groceries without limitation due to lower back pain Target Visit 12
--- NOTE | 2023-08-27 07:39 | PTOPEVAL1 ---
Assessment and note entered by JT File, PT Evaluation Information Assessment Status Evaluation Diagnosis lower back pain Onset 08/14/23 Subjective Information patient reports no injury. she reports she began noticing lower back pain in the summer. she reports she kept putting off telling the doc thinking it would go away. she reports she has increased pain with walking. she reports she is only able to walk from her car to the door of a building. she reports this limits her ability to perform shopping and other community activities. she reports she does go to the gym to exercise. she reports she feels better when sitting. Assessment PT Clinical Summary mrs. cotter is an 82 yo woman who presents to skilled PT for evaluation of lower back pain. her signs and symptoms are most indicative of lumbar DDD/spondylosis. she displays decreased lumbar rom , inability to spend time in extension/standing, piriformis tightness, and LE/core weakness. she would benefit from continued skilled PT to address her objective/functional deficits and improve her functional ability and quality of life to prior levels. Plan of Care Interventions Electrical Stimulation,Gait Training,Hot Pack/Cold Pack,Manual Therapy,Mechanical Traction,Neuro Re- education,Patient/Caregiver Educati,Therapeutic Activities,Therapeutic Exercise PT Services Indicated Yes Treatment Frequency and 3x weekly for 12 visits Duration These treatments will address the objective and functional deficits as defined above. The patient will be advanced safely and appropriately in order for the patient to progress towards his/her prior level of function. Additional exercises will be introduced and as well as a comprehensive home exercise program upon discharge, if needed, ?to ensure carryover of functional gains achieved in the clinic. This treatment plan has been reviewed and agreement upon by the patient.
--- NOTE | 2023-09-08 14:45 | OPREHPOC ---
Outpatient Therapy Plan of Care This is a Multidisciplinary Plan of Care that may contain components documented by all disciplines (PT, OT, and ST.) PT Problem 1 PT Problem #1 Knowledge Deficit PT Goal 1 Goal independent and compliant with HEP Target Visit 6 Progress Met PT Problem 2 PT Problem #2 Pain PT Goal 1 Goal decrease pain at worst in the lower back to 4/10 or less with standing and upright activities. PT Problem 3 PT Problem #3 Impaired Range of Motion PT Goal 1 Goal improve lumbar extension active mobility to 20 degrees improve lumbar sidebending active mobility to 20 degrees without pain Target Visit 12 Comment progressing PT Problem 4 PT Problem #4 Impaired Strength PT Goal 1 Goal improve bilateral hip strength to 5/5 or better. patient to display ability to hold PPT with eccentric hip flexion to 30 degrees or lower from the table. Target Visit 12 Comment progressing PT Problem 5 PT Problem #5 Impaired Functional Mobil PT Goal 1 Goal oswestry to display less than 45% functional deficits patient to ambulate 6 minutes for 800ft or more to improve community ambulation patient to report return to shopping for groceries without limitation due to lower back pain Target Visit 12 Comment progressing
--- NOTE | 2023-09-08 14:45 | PTOPPROG ---
Assessment and note entered by Albina Jang DPT Evaluation Information Assessment Status Progress Diagnosis lower back pain Onset 08/14/23 Subjective Information patient reports her low back is improving and she has not had to take pain medication. She reports she is able to stand and walk for longer periods of time. She reports she is independent with HEP Assessment PT Clinical Summary Mrs. Rock has been seen for 9 visits of skilled PT with good progress towards goals. She has improve lumbar ROM and LE strength. She reports she has been able stand and walk for longer periods of time but continues to have difficulty with completing heavy house hold tasks. She would benefit from continued skilled PT to address impairments and return to PLOF. Plan of Care Interventions Electrical Stimulation,Gait Training,Hot Pack/Cold Pack,Manual Therapy,Mechanical Traction,Neuro Re- education,Patient/Caregiver Educati,Therapeutic Activities,Therapeutic Exercise PT Services Indicated Yes Treatment Frequency and continue with remaining 3 visits Duration These treatments will address the objective and functional deficits as defined above. The patient will be advanced safely and appropriately in order for the patient to progress towards his/her prior level of function. Additional exercises will be introduced and as well as a comprehensive home exercise program upon discharge, if needed, ?to ensure carryover of functional gains achieved in the clinic. This treatment plan has been reviewed and agreement upon by the patient.
--- NOTE | 2023-09-15 16:57 | OPREHPOC ---
Outpatient Therapy Plan of Care This is a Multidisciplinary Plan of Care that may contain components documented by all disciplines (PT, OT, and ST.) PT Problem 1 PT Problem #1 Knowledge Deficit PT Goal 1 Goal independent and compliant with HEP Target Visit 6 Progress Met PT Problem 2 PT Problem #2 Pain PT Goal 1 Goal decrease pain at worst in the lower back to 4/10 or less with standing and upright activities. Target Visit 13 Progress Not Met Comment continue PT Problem 3 PT Problem #3 Impaired Range of Motion PT Goal 1 Goal improve lumbar extension active mobility to 20 degrees improve lumbar sidebending active mobility to 20 degrees without pain Target Visit 13 Progress Not Met Comment progressing PT Problem 4 PT Problem #4 Impaired Strength PT Goal 1 Goal improve bilateral hip strength to 5/5 or better. patient to display ability to hold PPT with eccentric hip flexion to 30 degrees or lower from the table. Target Visit 13 Progress Partially Met Comment progressing PT Problem 5 PT Problem #5 Impaired Functional Mobil PT Goal 1 Goal oswestry to display less than 45% functional deficits patient to ambulate 6 minutes for 800ft or more to improve community ambulation patient to report return to shopping for groceries without limitation due to lower back pain Target Visit 13 Progress Not Met Comment progressing
--- NOTE | 2023-09-15 16:57 | PTOPREEVAL ---
Assessment and note entered by Albina Jang DPT Evaluation Information Assessment Status Re-evaluation Diagnosis lower back pain Onset 08/14/23 Subjective Information Patient reports she did not have to take any pain medication last week. She reports the last 3 days her pain has been increased and she is unsure why. She report overall she has improved since start of care. Reported Pain Level Pain Score 3: Self Report Assessment PT Clinical Summary Mrs. Rock has been seen for 12 visits of skilled PT with good progress towards goals. She has had a recent flare up of pain but overall reports decreased pain since start of care. She has improve lumbar ROM and LE strength as well as completion of 775 feet during 6 min walk test. She reports she has been able stand and walk for longer periods of time but continues to have difficulty with completing heavy house hold tasks. She will continue with HEP for 2 week and return to PT for one additional visit and plan to DC at that time pending independence with HEP. Plan of Care Interventions Electrical Stimulation,Gait Training,Hot Pack/Cold Pack,Manual Therapy,Mechanical Traction,Neuro Re- education,Patient/Caregiver Educati,Therapeutic Activities,Therapeutic Exercise PT Services Indicated Yes Treatment Frequency and continue for 1 additional visit Duration These treatments will address the objective and functional deficits as defined above. The patient will be advanced safely and appropriately in order for the patient to progress towards his/her prior level of function. Additional exercises will be introduced and as well as a comprehensive home exercise program upon discharge, if needed, ?to ensure carryover of functional gains achieved in the clinic. This treatment plan has been reviewed and agreement upon by the patient.
--- NOTE | 2023-10-16 15:04 | OPREHPOC ---
Outpatient Therapy Plan of Care This is a Multidisciplinary Plan of Care that may contain components documented by all disciplines (PT, OT, and ST.) PT Problem 1 PT Problem #1 Knowledge Deficit PT Goal 1 Goal independent and compliant with HEP Target Visit 6 Progress Met PT Problem 2 PT Problem #2 Pain PT Goal 1 Goal decrease pain at worst in the lower back to 4/10 or less with standing and upright activities. Target Visit 18 Progress Not Met Comment continue PT Problem 3 PT Problem #3 Impaired Range of Motion PT Goal 1 Goal improve lumbar extension active mobility to 20 degrees improve lumbar sidebending active mobility to 20 degrees without pain Target Visit 18 Progress Not Met Comment progressing PT Problem 4 PT Problem #4 Impaired Strength PT Goal 1 Goal improve bilateral hip strength to 5/5 or better. patient to display ability to hold PPT with eccentric hip flexion to 30 degrees or lower from the table. Target Visit 18 Progress Partially Met Comment progressing PT Problem 5 PT Problem #5 Impaired Functional Mobil PT Goal 1 Goal oswestry to display less than 45% functional deficits patient to ambulate 6 minutes for 800ft or more to improve community ambulation patient to report return to shopping for groceries without limitation due to lower back pain Target Visit 18 Progress Not Met Comment progressing
--- NOTE | 2023-10-16 15:04 | PTOPREEVAL ---
Assessment and note entered by Albina Jang DPT Evaluation Information Assessment Status Re-evaluation Diagnosis lower back pain Onset 08/14/23 Subjective Information Patient reports she has had an MRI and returns to MD next Thursday. She reports MD recommended continued PT if she feels better. Patient does report she has had more pain in the time off from PT. Reported Pain Level Pain Score 3: Self Report Assessment PT Clinical Summary Mrs. Rock has been seen for 14 visits of skilled PT with good progress towards goals. She reports with time away from PT she noticed increase in pain at times. She demonstrates continued impaired posture and gait mechanics with limited lumbar ROM. She continues to have difficulty completeing house hold tasks and ambulating to grocery shop. She would benefit from continued skilled PT to address remaining impairments and return to [facility]. Plan of Care Interventions Electrical Stimulation,Gait Training,Hot Pack/Cold Pack,Manual Therapy,Mechanical Traction,Neuro Re- education,Patient/Caregiver Educati,Therapeutic Activities,Therapeutic Exercise PT Services Indicated Yes Treatment Frequency and continue 2x weekly for 4 visits Duration These treatments will address the objective and functional deficits as defined above. The patient will be advanced safely and appropriately in order for the patient to progress towards his/her prior level of function. Additional exercises will be introduced and as well as a comprehensive home exercise program upon discharge, if needed, ?to ensure carryover of functional gains achieved in the clinic. This treatment plan has been reviewed and agreement upon by the patient.
--- NOTE | 2023-10-30 13:22 | OPREHPOC ---
Outpatient Therapy Plan of Care This is a Multidisciplinary Plan of Care that may contain components documented by all disciplines (PT, OT, and ST.) PT Problem 1 PT Problem #1 Knowledge Deficit PT Goal 1 Goal independent and compliant with HEP Target Visit 6 Progress Met PT Problem 2 PT Problem #2 Pain PT Goal 1 Goal decrease pain at worst in the lower back to 4/10 or less with standing and upright activities. Target Visit 18 Progress Not Met Comment . PT Problem 3 PT Problem #3 Impaired Range of Motion PT Goal 1 Goal improve lumbar extension active mobility to 20 degrees improve lumbar sidebending active mobility to 20 degrees without pain Target Visit 18 Progress Not Met Comment not met for extension PT Problem 4 PT Problem #4 Impaired Strength PT Goal 1 Goal improve bilateral hip strength to 5/5 or better. patient to display ability to hold PPT with eccentric hip flexion to 30 degrees or lower from the table. Target Visit 18 Progress Not Met Comment . PT Problem 5 PT Problem #5 Impaired Functional Mobil PT Goal 1 Goal oswestry to display less than 45% functional deficits patient to ambulate 6 minutes for 800ft or more to improve community ambulation patient to report return to shopping for groceries without limitation due to lower back pain Target Visit 18 Progress Met Comment .
--- NOTE | 2023-10-30 13:22 | PTOPDC ---
Assessment and note entered by Albina Jang DPT Evaluation Information Assessment Status Discharge Diagnosis lower back pain Onset 08/14/23 Subjective Information Patient reports she has been able to manage her pain without pain medication. She reports walking is the activity that increases her pain. She reports she has been compliant with HEP. She reports she is ready to make today her last day of PT. Reported Pain Level Pain Score 3: Self Report Assessment PT Clinical Summary Mrs. Rock has been seen for 18 visits of skilled PT. She made good progress during POC with improved LE strength, ambulation tolerance and decrease in pain levels. She has been able to grocery shop with no seated breaks but does report her back continues to have moderate pain with prolonged activity. She is independent with HEP and is appropriate for DC at this time. Plan of Care PT Services Indicated No
== END 2023-10-30 14:20 | disposition home or self-care (01) ==
LOC: CHSPT 13:39
PROVIDERS: PCP Internal Medicine; Visit Provider Internal Medicine
DX: M54.50 Low back pain, unspecified (principal); M43.28 Fusion of spine, sacral and sacrococcygeal region
CPT/HCPCS: 36415; 85652; 86140; 86812; 97014; 97110; 97140; 97161; 97530; 97750; G0283

== ENCOUNTER 2023-10-08 08:26 | Outpatient (CLI) | payer MEDICARE, OTHER, SELFPAY ==
--- NOTE | ~2023-10-08 | MR_ITS ---
MRI of the lumbar spine Clinical History: Back pain Technique: Axial T2-weighted images, and sagittal T1-weighted, T2-weighted, and T2 fat-sat images wer e acquired. Findings: There is no acute fracture. There is 3 mm retrolisthesis of L1 over L2, and L2 over L3. The re is minimal grade 1 anterolisthesis of L5 over S1. No suspicious bone marrow signal abnormality see n. At L1-L2, there is advanced degenerative disc narrowing. No significant disc bulge or herniation. The re is mild to moderate facet arthropathy. No central canal stenosis. There is mild to moderate left n eural foraminal narrowing. At L2-L3, there is severe degenerative disc narrowing. There is mild disc bulge with severe facet art hropathy. There is minimal central canal stenosis. Neural foramina are preserved. At L3-L4, there is minimal disc bulge and severe facet arthropathy. No central canal stenosis or neur al foraminal narrowing. At L4-L5, there is mild disc bulge with severe facet arthropathy. There is right lateral recess steno sis with minimal right neural foraminal narrowing. No central canal stenosis. Left neural foramen pre served. At L5-S1, there is advanced degenerative disc narrowing. There is mild disc bulge with moderate facet arthropathy. There is moderate to severe right neural foraminal narrowing, and moderate left neural foraminal narrowing. No central canal stenosis. Paravertebral soft tissues are unremarkable. Impression: Moderate degenerative spondylosis, as above. Multiple grade 1 retrolistheses, as above. Reviewed, dictated and finalized at [facility]. DEVELOPER Impression: Moderate degenerative spondylosis, as above. Multiple grade 1 retrolistheses, as above.
== END 2023-10-08 08:27 | disposition home or self-care (01) ==
LOC: CHSIMG 08:28
PROVIDERS: PCP Internal Medicine; Visit Provider Internal Medicine
DX: M54.50 Low back pain, unspecified (principal); M43.06 Spondylolysis, lumbar region
CPT/HCPCS: 72148

== ENCOUNTER 2023-10-30 09:51 | Outpatient (CLI) | payer MEDICARE, OTHER, SELFPAY ==
[2023-10-30 10:25] LABS: Appearance Urine Clear (Clear); Bilirubin Urine Negative (Negative); Blood Urine 2+ (Negative); Color Urine Yellow (Yellow); Glucose Urine UA Negative (Negative); Ketones Urine Negative (Negative); Leukocyte Esterase Ur Trace (Negative); Nitrate Urine Negative (Negative); Potassium Urine Random 66.2 mmol/L (12-62); Protein Urine Negative (Negative); Sodium Urine Random 65 mmol/L (20-110); Urobilinogen Urine 0.2 mg/dL (0.2-1.0)
[2023-10-30 10:38] LABS: Add Urine Microscopic? YES; Bacteria Urine Trace /hpf; Renal Epithelial Cells Urine Few /hpf; Squamous Epithelial Cell Urine Few /hpf (Few); WBC Urine 0-3 /hpf (0-3)
[2023-10-30 10:43] LABS: Anion Gap 7 mmol/L (8-16); Blood Urea Nitrogen 17 mg/dL (7-18); Carbon Dioxide 30 mmol/L (21-32); Chloride 103 mmol/L (98-108); Estimated Glomerular Filt Rate > 60; Glucose 96 mg/dL (70-99); Osmolality Calculated 291 mOsm/kg (285-295); Sodium 140 mmol/L (136-145)
[2023-11-01 19:42] LABS: Osmolality, Urine 503 mOsm/kg (50-1200)
[2023-11-04 13:22] LABS: Chloride Rand Ur 82 mmol/L (32-290); Chloride/Creatinine Rand Ur 78 (38-318); Creatinine Random Urine 105 mg/dL (20-275)
== END 2023-10-30 09:52 | disposition home or self-care (01) ==
LOC: CHSLAB 09:54
PROVIDERS: PCP Internal Medicine; Visit Provider Internal Medicine
DX: E86.0 Dehydration (principal); R63.1 Polydipsia
CPT/HCPCS: 36415; 80048; 81001; 82436; 82570; 83935; 84133; 84300

== ENCOUNTER 2023-11-03 08:14 | Outpatient (CLI) | payer MEDICARE, OTHER, SELFPAY ==
--- NOTE | ~2023-11-03 | CT_ITS ---
EXAMINATION: CT abdomen pelvis wo con DATE: 11/03/2023 08:39 INDICATION: Hematuria TECHNIQUE: Computed tomography (CT) of the hematuria was performed without intravenous contrast. The dose-length product (DLP) was 225.53 mGy-cm. Automated exposure control and iterative reconstruction technique were employed. COMPARISON: 03/12/2019 FINDINGS: Minimal dependent atelectasis is present in the lung bases. The heart size is normal. There are changes of cholecystectomy. Punctate calcifications in otherwise normal appearing liver and sple en likely represent healed granulomatous disease. The pancreas and adrenal glands are normal. The kid neys are unremarkable. No stones are identified in the kidneys, ureters, or bladder. No hydronephrosi s or hydroureter. Colonic diverticulosis is present without evidence of diverticulitis. There is ayesha re lumbar spondylosis. Bilateral sacroiliitis is again noted. IMPRESSION: 1. No CT correlate for the patient's symptoms. Reviewed, dictated and finalized at location L. 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
== END 2023-11-03 08:15 | disposition home or self-care (01) ==
LOC: CHSIMG 08:16
PROVIDERS: PCP Internal Medicine; Visit Provider Internal Medicine
DX: R31.9 Hematuria, unspecified (principal)
CPT/HCPCS: 74176; 88112

== ENCOUNTER 2023-11-26 07:34 | Outpatient (CLI) | payer MEDICARE, SELFPAY ==
[2023-11-26 08:05] LABS: Anion Gap 7 mmol/L (8-16); Blood Urea Nitrogen 19 mg/dL (7-18); Calcium 9.3 mg/dL (8.5-10.1); Carbon Dioxide 32 mmol/L (21-32); Chloride 103 mmol/L (98-108); Estimated Glomerular Filt Rate 55; Glucose 99 mg/dL (70-99); Osmolality Calculated 296 mOsm/kg (285-295); Potassium 4.8 mmol/L (3.5-5.1); Sodium 142 mmol/L (136-145)
== END 2023-11-26 07:35 | disposition home or self-care (01) ==
LOC: CHSLAB 07:36
PROVIDERS: PCP Internal Medicine; Visit Provider Internal Medicine
DX: I10 Essential (primary) hypertension (principal)
CPT/HCPCS: 36415; 80048

== ENCOUNTER 2023-12-10 08:32 | Outpatient (CLI) | payer MEDICARE, OTHER, SELFPAY ==
[2023-12-10 08:49] LABS: Basophils Absolute Auto 0.05 K/mm3 (0.00-0.10); Basophils Percent Auto 0.9 % (0.0-1.0); Eosinophils Absolute Auto 0.08 K/mm3 (0.02-0.50); Eosinophils Percent Auto 1.4 % (1.0-6.0); Hematocrit 42.7 % (35.0-42.0); Hemoglobin 13.5 g/dL (11.7-13.8); Immature Granulocyte Absolute 0.01 K/mm3 (0.00-0.00); Immature Granulocyte Percent A 0.2 % (0.0-0.0); Lymphocytes Absolute Auto 2.14 K/mm3 (1.10-4.50); Lymphocytes Percent Auto 38.3 % (18.0-42.0); Mean Corpuscular HGB Conc 31.6 g/dL (32-36); Mean Corpuscular Hemoglobin 31.4 pg (27.0-31.0); Mean Corpuscular Volume 99.3 fL (78.0-102.0); Monocytes Absolute Auto 0.35 K/mm3 (0.10-0.90); Monocytes Percent Auto 6.3 % (2.0-11.0); Neutrophils Absolute Auto 2.96 K/mm3 (1.70-7.20); Neutrophils Percent Auto 52.9 % (50.0-70.0); Platelet Count Result 235 K/mm3 (150-420); White Blood Count 5.6 K/mm3 (4.8-10.8)
[2023-12-10 08:50] LABS: Appearance Urine Clear (Clear); Bilirubin Urine Negative (Negative); Blood Urine 1+ (Negative); Color Urine Light Yellow (Yellow); Glucose Urine UA Negative (Negative); Ketones Urine Negative (Negative); Leukocyte Esterase Ur Negative (Negative); Nitrate Urine Negative (Negative); Protein Urine Negative (Negative); Specific Grav Ur 1.015 (1.010-1.020); Urobilinogen Urine 0.2 mg/dL (0.2-1.0)
[2023-12-10 09:02] LABS: Add Urine Microscopic? YES; RBC Urine 0-2 /hpf (0-2)
[2023-12-10 09:03] LABS: Bacteria Urine Rare /hpf; Squamous Epithelial Cell Urine Few /hpf (Few); WBC Urine 0-3 /hpf (0-3)
[2023-12-10 10:23] LABS: Alanine Aminotransferase 26 U/L (14-59); Albumin Level 3.9 g/dL (3.4-5.0); Alkaline Phosphatase 82 U/L (46-116); Anion Gap 9 mmol/L (8-16); Aspartate Amino Transferase 24 U/L (15-37); Bilirubin,Total 0.6 mg/dL (0.00-1.00); Blood Urea Nitrogen 14 mg/dL (7-18); Calcium 9.2 mg/dL (8.5-10.1); Carbon Dioxide 31 mmol/L (21-32); Chloride 105 mmol/L (98-108); Cholesterol 221 mg/dL (0-200); Estimated Glomerular Filt Rate > 60; Glucose 92 mg/dL (70-99); HDL Direct 64 mg/dL (40-60); LDL Cholesterol Calculated 117 mg/dL (<130); Osmolality Calculated 300 mOsm/kg (285-295); Potassium 4.9 mmol/L (3.5-5.1); Sodium 145 mmol/L (136-145); Total Protein 6.7 g/dL (6.4-8.2); Triglycerides 201 mg/dL (0-150)
== END 2023-12-10 08:33 | disposition home or self-care (01) ==
LOC: CHSLAB 08:34
PROVIDERS: PCP Internal Medicine; Visit Provider Internal Medicine
DX: E53.8 Deficiency of other specified B group vitamins (principal); I10 Essential (primary) hypertension; N30.10 Interstitial cystitis (chronic) without hematuria; E78.2 Mixed hyperlipidemia
CPT/HCPCS: 36415; 80053; 80061; 81003; 85025

== ENCOUNTER 2024-01-05 14:24 | Outpatient (CLI) | payer MEDICARE, OTHER, SELFPAY ==
--- NOTE | ~2024-01-05 | DEXA_ITS ---
? Bone Density Report? Name:? JACOB KAPADIA Patient ID:??? [id number] Age:? 83 Sex:? Female Ethnicity:? White Date of : 1940 Indication: postmenopausal; screening for osteoporosis; parental hip fracture; height loss; prior fracture; hysterectomy; Referring Provider: Liliam Espinoza Study: Bone densitometry was performed. Exam Date: January 05, 2024 Accession number: [id number] Bone Density: Region?BMD??? T-score? Z-score?? Classification AP Spine(L1-L4)? 1.283??? 2.1?5.0? Normal Femoral Neck (Left)? 0.671?? -1.6? 0.9? Osteopenia Total Hip (Left)? 0.843?? -0.8? 1.5? Normal Femoral Neck (Right)? 0.675?? -1.6? 0.9? Osteopenia Total Hip (Right)? 0.801?? -1.2? 1.1? Osteopenia Femoral Neck Mean? 0.673?? -1.6? 0.9? Osteopenia Total Hip Mean? 0.822?? -1.0? 1.3? Normal World Health Organization criteria for BMD impression classify patients as: Normal (T-score at or above -1.0), Osteopenia (T-score between -1.0 and -2.5), or Osteoporosis (T-score at or below -2.5). 10-year Fracture Risk: FRAX not reported because: ? Prior hip or vertebral fracture ? Treated for osteoporosis Clinical Information Provided by Patient: Have had a previous hip or vertebral fracture Has had a low trauma fracture Parent has had a hip fracture Is being treated for osteoporosis Has used the following medications: Fosamax (i.e. alendronate), Prolia (i.e. denosumab), Vitamin D, Calcium Has the following medical conditions: Hysterectomy Patient maximum height was 67 Menopause Age: 39 No regular weight bearing exercise Drinks caffeinated beverages Onset of menses at age 13 Number of children 3 Impression: The patient has low bone mass, based on the Left Femoral Neck T- score. The patient has risk factors, including: parental hip fracture, previous fracture. Discussion: It is important to ask patients whether they are taking their medications and to encourage continued and appropriate compliance with their osteoporosis therapies to reduce fracture risk. It is also important to review their risk factors and encourage appropriate calcium and vitamin D intakes, exercise, fall prevention and other lifestyle measures. Follow-Up: Consider a repeat BMD and Vertebral Fracture Assessment (VFA) exam in 2 years or sooner if medically necessary, to reassess this patient's status. Reported by: Dr. Manoj Prabhakar on 43:11:00 PM. LUIS ANGEL
== END 2024-01-05 14:25 | disposition home or self-care (01) ==
LOC: CHSIMG 14:25
PROVIDERS: PCP Internal Medicine; Visit Provider Internal Medicine
DX: M81.0 Age-related osteoporosis without current pathological fracture (principal); M85.89 Other specified disorders of bone density and structure, multiple sites
CPT/HCPCS: 77080

== ENCOUNTER 2024-01-08 08:56 | Outpatient (CLI) | payer MEDICARE, OTHER, SELFPAY ==
[2024-01-08 09:12] VITALS: BMI 27.3
[2024-01-08 09:44] VITALS: BP 119/70; PULSE 76; RESP 16; TEMP 36.4; O2SAT 99
[2024-01-08] MEDS: ZOLEDRONIC ACID 5 MG/100 ML 100 ML 400 MG IVPB (09:51)
[2024-01-08 10:25] VITALS: BP 116/71; PULSE 71; RESP 16; TEMP 36.4; O2SAT 99
--- NOTE | 2024-01-08 10:39 | PC.NURSE ---
0945 Pt ambulated to floor without diffculty. IV site started. 1030 Patient ambulated to elevator once infusion was complete. VSS patient states she feels fine.
== END 2024-01-08 08:57 | disposition home or self-care (01) ==
LOC: CHSTREATRM 08:58
PROVIDERS: PCP Internal Medicine; Visit Provider Internal Medicine
DX: M81.0 Age-related osteoporosis without current pathological fracture (principal)
CPT/HCPCS: 96365; J3489

== ENCOUNTER 2024-02-01 13:26 | Outpatient (CLI) | payer MEDICARE, SELFPAY ==
[2024-02-01 14:29] LABS: Anion Gap 6 mmol/L (4-12); Blood Urea Nitrogen 22 mg/dL (7-18); Calcium 9.3 mg/dL (8.5-10.1); Carbon Dioxide 35 mmol/L (21-32); Chloride 102 mmol/L (98-108); Estimated Glomerular Filt Rate 49; Glucose 97 mg/dL (70-99); Osmolality Calculated 299 mOsm/kg (285-295); Sodium 143 mmol/L (136-145)
== END 2024-02-01 13:27 | disposition home or self-care (01) ==
LOC: CHSLAB 13:28
PROVIDERS: PCP Internal Medicine; Visit Provider Internal Medicine
DX: I10 Essential (primary) hypertension (principal)
CPT/HCPCS: 36415; 80048

== ENCOUNTER 2024-06-15 08:07 | Outpatient (CLI) | payer MEDICARE, SELFPAY ==
[2024-06-15 08:21] LABS: Basophils Absolute Auto 0.05 K/mm3 (0.00-0.10); Basophils Percent Auto 0.8 % (0.0-1.0); Eosinophils Percent Auto 3.4 % (1.0-6.0); Hematocrit 39.1 % (35.0-42.0); Immature Granulocyte Absolute 0.01 K/mm3 (0.00-0.00); Immature Granulocyte Percent A 0.2 % (0.0-0.0); Lymphocytes Percent Auto 40.7 % (18.0-42.0); Mean Corpuscular HGB Conc 33.2 g/dL (32-36); Mean Corpuscular Hemoglobin 32.4 pg (27.0-31.0); Mean Corpuscular Volume 97.5 fL (78.0-102.0); Mean Platelet Volume 10.1 fl (9.2-11.8); Monocytes Absolute Auto 0.38 K/mm3 (0.10-0.90); Monocytes Percent Auto 6.4 % (2.0-11.0); Neutrophils Absolute Auto 2.86 K/mm3 (1.70-7.20); Neutrophils Percent Auto 48.5 % (50.0-70.0); Platelet Count Result 226 K/mm3 (150-420); Red Blood Count 4.01 M/mm3 (4.20-5.40); White Blood Count 5.9 K/mm3 (4.8-10.8)
[2024-06-15 08:22] LABS: Add Urine Microscopic? YES; Appearance Urine Clear (Clear); Bilirubin Urine Negative (Negative); Blood Urine 1+ (Negative); Color Urine Light Yellow (Yellow); Glucose Urine UA Negative (Negative); Ketones Urine Negative (Negative); Leukocyte Esterase Ur Negative (Negative); Nitrate Urine Negative (Negative); Protein Urine Negative (Negative); Urobilinogen Urine 0.2 mg/dL (0.2-1.0)
[2024-06-15 08:25] LABS: RBC Urine 0-2 /hpf (0-2); Squamous Epithelial Cell Urine Few /hpf (Few); WBC Urine None seen /hpf (0-3)
[2024-06-15 08:26] LABS: Bacteria Urine Rare /hpf
[2024-06-15 09:43] LABS: Alanine Aminotransferase 28 U/L (14-59); Albumin Level 3.6 g/dL (3.4-5.0); Alkaline Phosphatase 88 U/L (46-116); Anion Gap 5 mmol/L (4-12); Aspartate Amino Transferase 21 U/L (15-37); Bilirubin,Total 0.6 mg/dL (0.00-1.00); Blood Urea Nitrogen 13 mg/dL (7-18); Calcium 9.2 mg/dL (8.5-10.1); Carbon Dioxide 35 mmol/L (21-32); Chloride 101 mmol/L (98-108); Cholesterol 223 mg/dL (0-200); Creatine Kinase 69 U/L (26-192); Estimated Glomerular Filt Rate 54; Free T3 2.17 pg/mL (2.18-3.98); Glucose 92 mg/dL (70-99); HDL Direct 58 mg/dL (40-60); LDL Cholesterol Calculated 129 mg/dL (<130); Osmolality Calculated 292 mOsm/kg (285-295); Potassium 4.5 mmol/L (3.5-5.1); Sodium 141 mmol/L (136-145); Thyroid Stimulating Hormone 4.05 uIU/mL (0.36-3.74); Total Protein 6.8 g/dL (6.4-8.2); Triglycerides 178 mg/dL (0-150); Vitamin B12 1546 pg/mL (193-986)
== END 2024-06-15 08:08 | disposition home or self-care (01) ==
LOC: CHSLAB 08:08
PROVIDERS: PCP Internal Medicine; Visit Provider Internal Medicine
DX: G25.81 Restless legs syndrome (principal); E78.2 Mixed hyperlipidemia; I10 Essential (primary) hypertension; E53.8 Deficiency of other specified B group vitamins; R35.0 Frequency of micturition; N30.10 Interstitial cystitis (chronic) without hematuria
CPT/HCPCS: 36415; 80053; 80061; 81001; 82550; 82607; 84439; 84443; 84481; 85025

== ENCOUNTER 2024-06-29 10:45 | Outpatient (CLI) | payer MEDICARE, OTHER, SELFPAY ==
--- NOTE | ~2024-06-29 | XR_ITS ---
XR hip RT min 2V Ordering provider: Liliam Espinoza MD History: . R hip pain . Comparison: None. FINDINGS: BONES: No acute fracture or dislocation. HIP JOINT SPACES: Normal. PUBIC SYMPHYSIS: Pubic symphysitis. SOFT TISSUES: Normal. IMPRESSION: No acute osseous abnormality pelvis and right hip. Reviewed, dictated and finalized at location A.
--- NOTE | ~2024-06-29 | CT_ITS ---
EXAMINATION: CT abdomen pelvis wo con DATE: 06/29/2024 11:43 INDICATION: Acute right lower quadrant abdominal pain and right groin pain TECHNIQUE: Computed tomography (CT) of the abdomen and pelvis was performed without intravenous contr ast. Automated exposure control and iterative reconstruction technique were employed. The dose-length product was 578.34 mGy-cm. COMPARISON: 11/03/2023 FINDINGS: Calcified nodules in the left lower lobe consistent with old granulomatous disease. Heart size is nor mal. No pericardial or pleural effusion. There are several scattered small hepatic and splenic calcif ic lesions consistent with old granulomatous disease. Cholecystectomy clips the gallbladder fossa. Pa ncreas, bilateral adrenal glands and kidneys are normal. Chronic mild groundglass opacity at the mese ntery. Moderate amount of stool predominantly in the distal colon. No bowel obstruction. The appendix is not visualized. No pericecal inflammatory change to suggest acute appendicitis. Bladder is normal . The uterus is not identified and has likely been surgically resected. No free intraperitoneal gas o r fluid. No pathologically enlarged abdominal or pelvic lymphadenopathy. Small fat-containing right i nguinal hernia. Severe lumbar spondylosis. Bilateral sacroiliac ankylosis. IMPRESSION: 1. No urolithiasis or acute intra-abdominal/pelvic process. Reviewed, dictated and finalized at location A.
[2024-06-29 11:07] LABS: Add Urine Microscopic? NO; Appearance Urine Clear (Clear); Basophils Absolute Auto 0.05 K/mm3 (0.00-0.10); Basophils Percent Auto 0.8 % (0.0-1.0); Bilirubin Urine Negative (Negative); Blood Urine Trace-intact (Negative); Color Urine Light Yellow (Yellow); Eosinophils Absolute Auto 0.14 K/mm3 (0.02-0.50); Eosinophils Percent Auto 2.2 % (1.0-6.0); Glucose Urine UA Negative (Negative); Hematocrit 41.9 % (35.0-42.0); Hemoglobin 13.7 g/dL (11.7-13.8); Immature Granulocyte Absolute 0.01 K/mm3 (0.00-0.00); Immature Granulocyte Percent A 0.2 % (0.0-0.0); Ketones Urine Negative (Negative); Leukocyte Esterase Ur Negative (Negative); Lymphocytes Absolute Auto 2.32 K/mm3 (1.10-4.50); Lymphocytes Percent Auto 36.3 % (18.0-42.0); Mean Corpuscular HGB Conc 32.7 g/dL (32-36); Mean Corpuscular Hemoglobin 32.1 pg (27.0-31.0); Mean Corpuscular Volume 98.1 fL (78.0-102.0); Mean Platelet Volume 10.1 fl (9.2-11.8); Monocytes Absolute Auto 0.41 K/mm3 (0.10-0.90); Monocytes Percent Auto 6.4 % (2.0-11.0); Neutrophils Absolute Auto 3.47 K/mm3 (1.70-7.20); Neutrophils Percent Auto 54.1 % (50.0-70.0); Nitrate Urine Negative (Negative); Platelet Count Result 257 K/mm3 (150-420); Protein Urine Negative (Negative); Red Blood Count 4.27 M/mm3 (4.20-5.40); Red Cell Distribution Width 12.1 % (11.6-14.4); Urobilinogen Urine 0.2 mg/dL (0.2-1.0); White Blood Count 6.4 K/mm3 (4.8-10.8)
[2024-06-29 11:42] LABS: Lactic Acid Reflex 1.1 mmol/L (0.4-2.0)
[2024-06-29 11:50] LABS: Alanine Aminotransferase 28 U/L (14-59); Alkaline Phosphatase 97 U/L (46-116); Anion Gap 7 mmol/L (4-12); Aspartate Amino Transferase 27 U/L (15-37); Bilirubin,Total 0.7 mg/dL (0.00-1.00); Blood Urea Nitrogen 10 mg/dL (7-18); Calcium 9.6 mg/dL (8.5-10.1); Carbon Dioxide 33 mmol/L (21-32); Chloride 102 mmol/L (98-108); Estimated Glomerular Filt Rate > 60; Glucose 88 mg/dL (70-99); Osmolality Calculated 292 mOsm/kg (285-295); Potassium 4.4 mmol/L (3.5-5.1); Sodium 142 mmol/L (136-145); Total Protein 7.5 g/dL (6.4-8.2)
== END 2024-06-29 10:46 | disposition home or self-care (01) ==
PROVIDERS: PCP Internal Medicine; Visit Provider Internal Medicine
DX: R10.31 Right lower quadrant pain (principal); M25.551 Pain in right hip
CPT/HCPCS: 36415; 73502; 74176; 80053; 81003; 83605; 85025; 87086

== ENCOUNTER 2024-07-06 10:37 | Emergency (ER) | payer MEDICARE, OTHER, SELFPAY ==
--- NOTE | ~2024-07-06 | CT_ITS ---
EXAMINATION: CT brain wo con DATE: 07/06/2024 11:15 INDICATION: Head injury. Headache. TECHNIQUE: Computed tomography (CT) of the head was performed without intravenous contrast. The mA wa s adjusted according to patient size. Iterative reconstruction technique was employed. The dose-lengt h product was 605.33 mGy-cm. COMPARISON: Head CT 02/08/2018 FINDINGS: There are scattered areas of low attenuation in the cerebral white matter. There is no intr acranial hemorrhage, acute infarction, or abnormal intracranial mass lesion. The ventricles are domi l in size. There is mild mucosal thickening in the paranasal sinuses. The mastoid air cells are domi l. There are likely changes of ocular lens replacement surgeries. There is right periorbital soft tis sylvia swelling. There are fractures of the nasal bones. IMPRESSION: 1. Moderate nonspecific cerebral white matter disease, which likely represents chronic small vessel i schemic disease. 2. Fractures of the nasal bones. Reviewed, dictated and finalized at location A. IMPRESSION: 1. Moderate nonspecific cerebral white matter disease, which likely represents chronic small vessel ischemic disease. 2. Fractures of the nasal bones.
--- NOTE | ~2024-07-06 | CT_ITS ---
EXAMINATION: CT facial & cervical spine wo DATE: 07/06/2024 11:15 INDICATION: Head injury. TECHNIQUE: Computed tomography (CT) of the maxillofacial region and cervical spine was performed with out intravenous contrast. Automated exposure control and iterative reconstruction technique were empl oyed. The dose-length product was 239.22 mGy-cm. COMPARISON: CT maxillofacial 09/13/2021 FINDINGS: MAXILLOFACIAL CT: There is frontal scalp soft tissue swelling. There are likely changes of ocular lens replacement surg eries. There is right periorbital soft tissue swelling. There is leftward deviation of the nasal sept um. No fractures of the nasal bones. There is mild mucosal thickening in the paranasal sinuses. The m astoid air cells are normal. CERVICAL SPINE CT: Alignment is normal. There is mild chronic anterior wedging of T1 and T2 vertebral bodies. There is m ildly decreased disc height at C2-C3, severely decreased disc height at C3-C4, moderately decreased d isc height at C4-C5, and severely decreased disc height at C5-C6 and C6-C7. The following disc levels are specifically discussed: C2-C3: There is severe right and mild left uncovertebral joint osteoarthritis. There is severe bilate ral facet joint osteoarthritis. There is moderate right and mild left neural foraminal stenosis. Ther e is no central canal stenosis. C3-C4: There is severe bilateral uncovertebral joint osteoarthritis. There is severe bilateral facet joint osteoarthritis. There is mild bilateral neural foraminal stenosis. There is mild central canal stenosis. C4-C5: There is severe bilateral uncovertebral joint osteoarthritis. There is severe bilateral facet joint osteoarthritis. There is moderate right and mild left neural foraminal stenosis. There is mild central canal stenosis. C5-C6: There is severe bilateral uncovertebral joint osteoarthritis. There is moderate bilateral face t joint osteoarthritis. There is mild bilateral neural foraminal stenosis. There is mild central mario l stenosis. C6-C7: There is severe bilateral uncovertebral joint osteoarthritis. There is severe bilateral facet joint osteoarthritis. There is mild bilateral neural foraminal stenosis. There is mild central canal stenosis. C7-T1: There is no uncovertebral joint osteoarthritis. There is severe bilateral facet joint osteoart hritis. There is mild bilateral neural foraminal stenosis. There is no central canal stenosis. IMPRESSION: 1. Fractures of the nasal bones. 2. Severe cervical spondylosis. Reviewed, dictated and finalized at location A.
[2024-07-06 10:40] VITALS: BP 150/81; PULSE 78; RESP 18; TEMP 36.9; O2SAT 98
--- NOTE | 2024-07-06 10:44 | ED.FALL ---
HPI - Fall General Chief Complaint: Head Injury Stated Complaint: fall Time Seen by Provider: 07/06/24 10:44 Source: patient Mode of arrival: ambulatory Limitations: no limitations History of Present Illness HPI Narrative: 83-year-old female with a history of anxiety/ depression, dyslipidemia, hypertension, kidney stones, gallbladder disease lost balance which she stepped on a curb and presents with -- multiple abrasions over the forehead, right elbow, hands, right knee -- epistaxis with swelling of the nose -- swelling of the right cheek -- Complains of headache with no loss of consciousness. no vomiting. No focal deficits. No ENT bleeding. After the fall the patient was ambulatory. No chest pain or shortness of breath. MD complaint: fall Onset (ago): hour(s) ( 1 marivel) Prolonged down time: unclear Symptoms prior to fall: none Context: tripped/slipped Location of injury: head and face Location of injury - extremities: Right: elbow, hand and knee Related Data Home Medications Medication Instructions Recorded Confirmed carvedilol 3.125 mg tablet 3.125 mg PO BID 02/01/20 01/08/24 lovastatin 40 mg tablet 40 mg PO HS 02/01/20 01/08/24 paroxetine HCl 20 mg tablet 20 mg PO DAILY 02/01/20 01/08/24 losartan 100 mg tablet 50 mg PO DAILY 02/08/20 01/08/24 magnesium oxide 400 mg PO DAILY 04/05/21 01/08/24 meclizine 25 mg tablet 25 mg PO TID PRN Dizziness Or 06/20/21 01/08/24 Vertigo furosemide 20 mg tablet 40 mg DAILY 01/08/24 01/08/24 Allergies Allergy/AdvReac Type Severity Reaction Status Date / Time adhesive tape Allergy Mild Rash Unverified 07/06/24 10:58 iodine Allergy Mild Rash Verified 07/06/24 10:58 Sulfa (Sulfonamide Allergy Nausea Verified 07/06/24 10:58 Antibiotics) Review of Systems Review of Systems: All systems reviewed & are unremarkable except as noted in HPI and below Constitutional: Constitutional: Reports as per HPI Eyes: Eyes: Reports as per HPI Comments: Swelling below right eye ENT: Reports system reviewed and no additional complaints, except as documented and Reports epistaxis Comments: bleeding from right nostril Cardiovascular: Cardiovascular: Reports as per HPI and Reports no additional cardiovascular complaints Respiratory: Respiratory: Reports as per HPI and Reports no additional respiratory complaints Gastrointestinal: Gastrointestinal: Reports as per HPI and Reports no additional gastrointestinal complaints Genitourinary: Genitourinary: Reports no additional female genitourinary complaints and Reports as per HPI Integumentary/Breasts: Comments: multiple abrasions. Swelling right cheek Neurologic: Reports system reviewed and no additional complaints, except as documented and Reports as per HPI Psychiatric: Psychiatric: Reports no additional psychiatric complaints and Reports as per HPI Endocrine: Endocrine: Reports no additional endocrine complaints and Reports as per HPI Hematologic/Lymphatic: Hematologic/Lymphatic: Reports no additional hematologic/lymphatic complaints and Reports as per HPI Allergic/Immunologic: Allergic/Immunologic: Reports no additional allergic/immunologic complaints and Reports as per HPI [facility] Past Medical History Medical History Anxiety Depression Dyslipidemia Gall bladder disease Hypertension Kidney stones Meniere disease Surgical History Surgical History H/O foot surgery H/O: hysterectomy History of laparoscopic cholecystectomy 03/23/20 Family History Family History Father Colon cancer Mother Heart disease Social History Social History Smoking status: Never smoker Alcohol intake: never Substance use: never Living arrangements: alone Occupation/Education: retired Gen
== END 2024-07-06 11:57 | disposition home or self-care (01) ==
PROVIDERS: Emergency Provider Internal Medicine Critical Care Medicine; PCP Internal Medicine
DX: S00.81XA Abrasion of other part of head, initial encounter (principal); S00.31XA Abrasion of nose, initial encounter; S80.211A Abrasion, right knee, initial encounter; S50.311A Abrasion of right elbow, initial encounter; S60.512A Abrasion of left hand, initial encounter; S60.511A Abrasion of right hand, initial encounter; E78.5 Hyperlipidemia, unspecified; I10 Essential (primary) hypertension; W01.0XXA Fall on same level from slipping, tripping and stumbling without subsequent striking against object, initial encounter
CPT/HCPCS: 70450; 70486; 72125; 99284

== ENCOUNTER 2024-08-15 08:54 | Outpatient (RCR) | payer MEDICARE, OTHER, SELFPAY ==
--- NOTE | 2024-08-15 09:59 | PTOPEVAL1 ---
Assessment and note entered by Steven Carias Evaluation Information Assessment Status Evaluation ICD-10 Condition Codes (PT) M54.13 Onset 07/15/24 Subjective Information Pt. reports she fell about 1 month ago after tripping over a parking block. She states that about 1 week after the fall she started developing pain in the neck and upper left arm. She states that pain also began to radiate into the described left shoulder blade. She states that she went to the doctor who stated that she had a pinched nerve in the neck. She states that she just finished a 7 day steroid dose pack, which has helped to slightly ease pain, but is still present . She states that she has been able to sleep since the dose pack. She states that she notices that she has noticed an inability to reach to the back of the head and reach overhead with the left arm. She states that she cannot do her hair with the left arm. She states that her lack of mobility into the left shoulder limits her most. She states that her goal is to improve her left shoulder mobility. Reported Pain Level Pain Score 6: Self Report Assessment PT Clinical Summary Pt. is an 83 year old female who enters the clinic with cervical radiculopathy. On this date pt. presents with mild cervical symptoms, and symptoms may have been reduced with use of dose pack. She does however present with limitations in shoulder ROM, shoulder strength and continues to have shoulder pain with overhead and rotational movements. At this time continued skilled PT is indicated in order to improve these areas to allow the pt. to be able to complete all IADL's with improved efficiency. She is left hand dominant. Plan of Care Interventions Electrical Stimulation,Hot Pack/Cold Pack,Manual Therapy,Neuro Re-education,Patient/Caregiver Educati,Therapeutic Activities,Therapeutic Exercise PT Services Indicated Yes Treatment Frequency and 2x/week x 10 visits Duration These treatments will address the objective and functional deficits as defined above. The patient will be advanced safely and appropriately in order for the patient to progress towards his/her prior level of function. Additional exercises will be introduced and as well as a comprehensive home exercise program upon discharge, if needed, ?to ensure carryover of functional gains achieved in the clinic. This treatment plan has been reviewed and agreement upon by the patient.
--- NOTE | 2024-08-15 09:59 | OPREHPOC ---
Outpatient Therapy Plan of Care This is a Multidisciplinary Plan of Care that may contain components documented by all disciplines (PT, OT, and ST.) PT Problem 1 PT Problem #1 Knowledge Deficit PT Goal 1 Goal / Goal Update Pt. will be independent with a HEP addressing strength and mobility restorationism. Target Visit 2 PT Problem 2 PT Problem #2 Impaired Range of Motion PT Goal 1 Goal / Goal Update Pt. will present with 160 degrees active left shoulder flexion Pt. will present with 95 degrees active left shoulder ER Pt. will reports being able to use the left u.e. for grooming activities. Target Visit 10 PT Problem 3 PT Problem #3 Impaired Strength PT Goal 1 Goal / Goal Update Pt. will present with 4+/5 gross proximal left u.e . Target Visit 10
--- NOTE | 2024-08-18 09:34 | PCPTNOTE ---
Cancelled session. Wrote down wrong date on calendar. Will be here next week.
--- NOTE | 2024-09-19 09:08 | OPREHPOC ---
Outpatient Therapy Plan of Care This is a Multidisciplinary Plan of Care that may contain components documented by all disciplines (PT, OT, and ST.) PT Problem 1 PT Problem #1 Knowledge Deficit PT Goal 1 Goal / Goal Update Pt. will be independent with a HEP addressing strength and mobility anabaptist. Target Visit 2 Progress Met PT Problem 2 PT Problem #2 Impaired Range of Motion PT Goal 1 Goal / Goal Update Pt. will present with 160 degrees active left shoulder flexion Pt. will present with 95 degrees active left shoulder ER Pt. will reports being able to use the left u.e. for grooming activities. met Target Visit 10 Progress Met PT Problem 3 PT Problem #3 Impaired Strength PT Goal 1 Goal / Goal Update Pt. will present with 4+/5 gross proximal left u.e . Target Visit 10 Progress Met
--- NOTE | 2024-09-19 09:08 | PTOPDC ---
Assessment and note entered by JT File, PT Evaluation Information Assessment Status Discharge Diagnosis Cervical radiculopathy ICD-10 Condition Codes (PT) Radiculopathy, cervical M54.13 Onset 07/15/24 Subjective Information patient reports she feels Good today. she reports she is ready to DC skilled PT. she reports the pain is low, and she is able to use the UE's to complete all home and self care activities. Reported Pain Level Pain Score 1: Self Report Assessment PT Clinical Summary Mrs. Rock is an 83 year old female with a clinical presentation of cervical radiculopathy who has attended 10 skilled physical therapy sessions. She reports reduction of pain and reports an improved NDI score of 0 compared to 12 at initial evaluation. Pt demonstrates improvements in shoulder ROM and strength and has met all therapeutic goals, therefore skilled physical therapy services are no longer indicated. Pt discharged with HEP and red TB provided. Plan of Care PT Services Indicated Yes
== END 2024-09-19 11:09 | disposition home or self-care (01) ==
LOC: CHSPT 08:54
PROVIDERS: PCP Internal Medicine; Visit Provider Internal Medicine
DX: M54.12 Radiculopathy, cervical region (principal)
CPT/HCPCS: 97014; 97110; 97161; G0283

== ENCOUNTER 2024-09-01 10:09 | Outpatient (CLI) | payer MEDICARE, OTHER, SELFPAY ==
[2024-09-01 11:07] LABS: Anion Gap 7 mmol/L (4-12); Blood Urea Nitrogen 16 mg/dL (7-18); Calcium 9.8 mg/dL (8.5-10.1); Carbon Dioxide 33 mmol/L (21-32); Chloride 103 mmol/L (98-108); Estimated Glomerular Filt Rate 60; Free T4 Free Thyroxine 0.81 ng/dL (0.76-1.46); Glucose 84 mg/dL (70-99); Osmolality Calculated 296 mOsm/kg (285-295); Sodium 143 mmol/L (136-145); Thyroid Stimulating Hormone 1.99 uIU/mL (0.36-3.74)
[2024-09-01 11:30] LABS: Free T3 2.43 pg/mL (2.18-3.98)
== END 2024-09-01 10:10 | disposition home or self-care (01) ==
LOC: CHSIMG 10:11
PROVIDERS: PCP Internal Medicine; Visit Provider Internal Medicine
DX: E03.4 Atrophy of thyroid (acquired) (principal); I10 Essential (primary) hypertension
CPT/HCPCS: 36415; 80048; 84439; 84443; 84481

== ENCOUNTER 2024-09-09 10:04 | Outpatient (CLI) | payer MEDICARE, SELFPAY ==
[2024-09-09 11:28] LABS: Alanine Aminotransferase 32 U/L (14-59); Albumin Level 3.7 g/dL (3.4-5.0); Alkaline Phosphatase 96 U/L (46-116); Anion Gap 5 mmol/L (4-12); Aspartate Amino Transferase 29 U/L (15-37); Bilirubin,Total 0.5 mg/dL (0.00-1.00); Blood Urea Nitrogen 13 mg/dL (7-18); Calcium 9.7 mg/dL (8.5-10.1); Carbon Dioxide 34 mmol/L (21-32); Chloride 104 mmol/L (98-108); Estimated Glomerular Filt Rate > 60; Free T4 Free Thyroxine 0.86 ng/dL (0.76-1.46); Glucose 122 mg/dL (70-99); NT Pro B Type Natriuretic Pept 212 pg/mL (0-450); Osmolality Calculated 297 mOsm/kg (285-295); Potassium 5.4 mmol/L (3.5-5.1); Sodium 143 mmol/L (136-145); Thyroid Stimulating Hormone 2.08 uIU/mL (0.36-3.74); Total Protein 6.4 g/dL (6.4-8.2)
--- OUTSIDE RECORDS SUMMARY | 2024-09-09 12:28 | XMS_ITS ---
Care Plan - [facility] Created on: September 09, 2024 KANG JACOB Thalia : 1940 Sex: Female Author Organization [facility] Address [address] [place] [address] Phone Care Team Providers Care Engraver Automatic Name Role Phone Unavailable Unavailable Unavailable
--- OUTSIDE RECORDS SUMMARY | 2024-09-09 12:28 | XMS_ITS | Clinical Summary ---
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 Plan of Treatment No Plan of Treatment Recorded Assessments Includes: Assessments from this encounter No Assessments Recorded Medical Equipment - Implanted Devices Includes: Current Devices No Medical Equipment Recorded Medications Administered Includes: Administered Medications from this encounter No Administered Medications Recorded Results Includes: Results discussed during this encounter No Results Recorded For Specified Dates History of Present Illness Includes: History of Present Illness from this encounter No History of Present Illness Recorded Social History No Social History Recorded - Smoking Status Unknown Medical History Includes: Medical History addressed during this encounter No Medical History Recorded Family History Includes: Family History addressed during this encounter No Family History Recorded Review of Systems Includes: Review of Systems from this encounter No Review of Systems Recorded Mental Status Includes: Mental Status from this encounter No Mental Status Recorded Functional Status Includes: Functional Status from this encounter No Functional Status Recorded Physical Exam Includes: Physical Exam from this encounter No Physical Exam Recorded Encounters Encounter Provider Location Date Check-In Time Check-Out Time Diagnosis 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 [facility] NAT[employer]IST 04/23/2006 10:28AM 11:34AM Clinical Notes Includes: Clinical Notes from this encounter No Clinical Notes Recorded
--- OUTSIDE RECORDS SUMMARY | 2024-09-09 12:28 | XMS_ITS | Clinical Summary ---
Author Organization [facility] Address [address] [place] [address] Phone Care Team Providers Care Bat Person Name Role Phone Unavailable Unavailable Unavailable Reason for Visit and Chief Complaint CAREER TECHNICAL COUNSELOR EXAM Plan of Treatment No Plan of [...] Location Date Check-In Time Check-Out Time Diagnosis CAREER TECHNICAL COUNSELOR EXAM SUZY ZAIDI M.D. [facility] ASTHMA EDUCATOR 06/17/2007 9:53AM 11:09AM Clinical Notes Includes: Clinical Notes from this encounter No Clinical Notes Recorded
--- OUTSIDE RECORDS SUMMARY | 2024-09-09 12:28 | XMS_ITS | Clinical Summary ---
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
--- OUTSIDE RECORDS SUMMARY | 2024-09-09 12:28 | XMS_ITS ---
Author Organization [facility] Address [address] [place] [address] Phone Care Team Providers Care Toilet Products Molder Name Role Phone Unavailable Unavailable Unavailable Plan of Treatment No Plan of Treatment Recorded Assessments Includes: Assessments for all patient encounters No Assessments Recorded Medical Equipment - Implanted Devices Includes: Current and historical Devices No Medical Equipment Recorded Medications Administered Includes: Administered Medications in patient's chart No Administered Medications Recorded Results Includes: Results from 09/09/2023 through 09/09/2024 No Results Recorded For Specified Dates History of Present Illness History of Present Illness not supported for this document type No History of Present Illness Recorded Social History No Social History Recorded - Smoking Status Unknown Medical History Includes: Medical History in patient's chart No Medical History Recorded Family History Includes: Family History in patient's chart No Family History Recorded Review of Systems Review of Systems not supported for this document type No Review of Systems Recorded Mental Status No Mental Status Recorded Functional Status No Functional Status Recorded Physical Exam Physical Exam not supported for this document type No Physical Exam Recorded Clinical Notes Includes: Signed Clinical Notes starting from 10/17/2022 No Clinical Notes Recorded
== END 2024-09-09 10:05 | disposition home or self-care (01) ==
LOC: CHSLAB 10:08
PROVIDERS: PCP Internal Medicine; Visit Provider Internal Medicine
DX: I10 Essential (primary) hypertension (principal); E78.2 Mixed hyperlipidemia; E03.4 Atrophy of thyroid (acquired); R06.9 Unspecified abnormalities of breathing
CPT/HCPCS: 36415; 80053; 83880; 84439; 84443

== ENCOUNTER 2024-11-03 10:24 | Outpatient (CLI) | payer MEDICARE, OTHER, SELFPAY ==
--- NOTE | ~2024-11-03 | XR_ITS ---
Clinical Indication: Cough PA and lateral views of the chest: Comparison: 10/24/2024 Findings: The lungs are clear, without evidence of focal consolidation or pleural effusion. COPD lilian luke present. Cardiomediastinal silhouette is within normal limits. Bones and soft tissues are unremar kable. Impression: COPD. Reviewed, dictated and finalized at location . ASSEMBLER Impression: COPD.
[2024-11-03 10:50] LABS: Basophils Absolute Auto 0.04 K/mm3 (0.00-0.10); Basophils Percent Auto 0.6 % (0.0-1.0); Eosinophils Absolute Auto 0.16 K/mm3 (0.02-0.50); Eosinophils Percent Auto 2.4 % (1.0-6.0); Hematocrit 44.3 % (35.0-42.0); Immature Granulocyte Absolute 0.02 K/mm3 (0.00-0.00); Immature Granulocyte Percent A 0.3 % (0.0-0.0); Lymphocytes Absolute Auto 1.34 K/mm3 (1.10-4.50); Lymphocytes Percent Auto 20.1 % (18.0-42.0); Mean Corpuscular HGB Conc 31.6 g/dL (32-36); Mean Corpuscular Hemoglobin 31.5 pg (27.0-31.0); Mean Corpuscular Volume 99.8 fL (78.0-102.0); Mean Platelet Volume 9.9 fl (9.2-11.8); Monocytes Absolute Auto 0.54 K/mm3 (0.10-0.90); Monocytes Percent Auto 8.1 % (2.0-11.0); Neutrophils Absolute Auto 4.58 K/mm3 (1.70-7.20); Neutrophils Percent Auto 68.5 % (50.0-70.0); Platelet Count Result 208 K/mm3 (150-420); Red Blood Count 4.44 M/mm3 (4.20-5.40); Red Cell Distribution Width 12.5 % (11.6-14.4); White Blood Count 6.7 K/mm3 (4.8-10.8)
--- OUTSIDE RECORDS SUMMARY | 2024-11-03 10:51 | XMS_ITS | Clinical Summary ---
Author Organization [facility] Address [address] [place] [address] Phone Care Team Providers Care Lead Java J2Ee Developer Name Role Phone Unavailable Unavailable Unavailable Reason for Visit and Chief Complaint HOOP RIVETER EXAM Plan of Treatment No Plan of [...]
--- OUTSIDE RECORDS SUMMARY | 2024-11-03 10:51 | XMS_ITS | CONTINUITY OF CARE DOCUMENT ---
Author Name yohana muller Address Unknown Organization [facility] Address [address] [place] [address] Phone [phone] Care Team Providers Care Sales Agent Business Services Name Role Phone Delmer SAUCEDA, Carolyn Unavailable MITCHELL DUTTA MD Unavailable MITCHELL DUTTA MD Unavailable INSURANCE PROVIDERS Payer name Policy type / Coverage type [place] red constitution party ID [place] Medicare [id number] [facility] Hively insurance [id number]
--- OUTSIDE RECORDS SUMMARY | 2024-11-03 10:51 | XMS_ITS ---
Care Plan - [facility] Created on: November 03, 2024 KANG JACOB Thalia : 1940 Sex: Female Author Organization [facility] Address [address] [place] [address] Phone Care Team Providers Care Ice Guard Tester Name Role Phone Unavailable Unavailable Unavailable
--- OUTSIDE RECORDS SUMMARY | 2024-11-03 10:51 | XMS_ITS | Clinical Summary ---
Author Organization [facility] Address [address] [place] [address] Phone Care Team Providers Care Financial Coach Name Role Phone Unavailable Unavailable Unavailable Reason for Visit and Chief Complaint THIRD MILLER EXAM Plan of Treatment No Plan of [...] Location Date Check-In Time Check-Out Time Diagnosis THIRD MILLER EXAM SUZY ZAIDI M.D. [facility] COLLAR PACKER 04/23/2006 10:28AM 11:34AM Clinical Notes Includes: Clinical Notes from this encounter No Clinical Notes Recorded
--- OUTSIDE RECORDS SUMMARY | 2024-11-03 10:51 | XMS_ITS | Clinical Summary ---
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 [facility] WEIGHT YARDAGE CHECKER 06/17/2007 9:53AM 11:09AM Clinical Notes Includes: Clinical Notes from this encounter No Clinical Notes Recorded
--- OUTSIDE RECORDS SUMMARY | 2024-11-03 10:51 | XMS_ITS | Encounter Summary ---
Author Organization [facility] Address [facility] [place] [address] Care Team Providers Care Business Affairs Manager Name Role Phone Liliam Espinoza MD Primary Care Provider [phone] Encounter Details Date Type Department Care Team (Late st Contact Info) Description 05/04/2024 Hospital Orders Only [facility] [address] [facility] [address] Alexandria Calixto MD [address] [place], [place] [id number] Social History Tobacco Use Types Packs/Day Years Used Date Smoking Tobacco: Never Assessed Comments Unknown Sex and Gender Information Value Date Recorded Sex Assigned at Not on file Legal Sex Female 1:02 PM CDT Gender Identity Not on file Sexual Orientation Not on file documented as of this encounter Plan of Treatment Not on file documented as of this encounter Visit Diagnoses Not on filedocumented in this encounter Care Teams Business Affairs Manager Relationship Specialty Start Date End Date Liliam Espinoza MD [address] [place] [address] PCP - General INTERNAL MEDICINE 05/04/24 documented as of this encounter
--- OUTSIDE RECORDS SUMMARY | 2024-11-03 10:51 | XMS_ITS | Clinical Summary ---
Author Organization [facility] Address [facility] [place] [address] Care Team Providers Care Head Of Talent Management Name Role Phone Liliam Espinoza MD Primary Care Provider [phone] Allergies Active Allergy Reactions Criticality Noted Date Comments Iodine Hives 09/17/2012 Social History Tobacco Use Types Packs/Day Years Used Date Smoking Tobacco: Never Assessed Comments Unknown Sex and Gender Information Value Date Recorded Sex Assigned at Not on file Legal Sex Female 1:02 PM CDT Gender Identity Not on file Sexual Orientation Not on file Plan of Treatment Health Maintenance Due Date Last Done Comments Zoster Vaccines (1 of 2) 1989 Annual Medicare Wellness Visit 2004 Dexa Scan (General) 2004 RSV Immunization or 60+ Years (1 - 1-dose 75+ series) 2014 Pneumococcal Vaccine: 65+ Years (2 of 2 - PPSV23 or PCV20) 05/01/2017 05/01/2016 COVID-19 Vaccine ( season) 2024 07/11/2022, 10/01/2021, 12/28/2020, Additional history exists Influenza Adult (#1) 2024 07/27/2023, 06/18/2021, 06/07/2020, Additional history exists DTaP, Tdap and Td Vaccines (3 - Td or Tdap) 02/09/2028 02/08/2018, 05/08/2015 Meningococcal B Vaccine Aged Out No l onger eligible based on patient's age to complete this topic Meningococcal Vaccine Aged Out No khoa logan eligible based on patient's age to complete this topic RSV Immunizations Under 20 Months Aged Out No longer eligible based on patient's age to complete this topic Insurance [facility] LIFE AND CASUALTY MEDICARE [facility] Care Teams Head Of Talent Management Relationship Specialty Start Date End Date Liliam Espinoza MD [address] [place] [address] PCP - General INTERNAL MEDICINE 05/04/24
--- OUTSIDE RECORDS SUMMARY | 2024-11-03 10:51 | XMS_ITS ---
Author Organization [facility] Address [address] [place] [address] Phone Care Team Providers Care Inspector Machine Cut Glass Name Role Phone Unavailable Unavailable Unavailable Plan of Treatment No Plan of Treatment Recorded Assessments Includes: Assessments for all patient encounters No Assessments Recorded Medical Equipment - Implanted Devices Includes: Current and historical Devices No Medical Equipment Recorded Medications Administered Includes: Administered Medications in patient's chart No Administered Medications Recorded Results Includes: Results from 11/03/2023 through 11/03/2024 No Results Recorded For Specified Dates History [...]
[2024-11-03 11:15] LABS: Strep Group A RT-PCR NOT DETECTED (Negative)
[2024-11-03 11:20] LABS: Alanine Aminotransferase 32 U/L (14-59); Albumin Level 3.9 g/dL (3.4-5.0); Alkaline Phosphatase 90 U/L (46-116); Anion Gap 4 mmol/L (4-12); Aspartate Amino Transferase 25 U/L (15-37); Bilirubin,Total 0.4 mg/dL (0.00-1.00); Blood Urea Nitrogen 19 mg/dL (7-18); Calcium 9.4 mg/dL (8.5-10.1); Carbon Dioxide 35 mmol/L (21-32); Chloride 104 mmol/L (98-108); Estimated Glomerular Filt Rate 57; Glucose 82 mg/dL (70-99); Osmolality Calculated 297 mOsm/kg (285-295); Potassium 5.1 mmol/L (3.5-5.1); Sodium 143 mmol/L (136-145); Total Protein 6.9 g/dL (6.4-8.2)
[2024-11-03 11:27] LABS: Influenza A QL RT-PCR Negative (Negative); Influenza B QL RT-PCR Negative (Negative); RSV RNA, RT-PCR Positive (Negative); SARS-CoV-2 RNA PCR Negative (Negative)
== END 2024-11-03 10:25 | disposition home or self-care (01) ==
LOC: CHSLAB 10:25
PROVIDERS: PCP Internal Medicine; Visit Provider Internal Medicine
DX: R05.9 Cough, unspecified (principal); J44.9 Chronic obstructive pulmonary disease, unspecified
CPT/HCPCS: 36415; 71046; 80053; 85025; 87637; 87651

== ENCOUNTER 2024-11-22 08:02 | Outpatient (CLI) | payer MEDICARE, SELFPAY ==
[2024-11-22 08:19] LABS: Hematocrit 44.2 % (35.0-42.0); Hemoglobin 14.1 g/dL (11.7-13.8); Mean Corpuscular HGB Conc 31.9 g/dL (32-36); Mean Corpuscular Hemoglobin 31.6 pg (27.0-31.0); Mean Corpuscular Volume 99.1 fL (78.0-102.0); Mean Platelet Volume 10.2 fl (9.2-11.8); Platelet Count Result 271 K/mm3 (150-420); Red Blood Count 4.46 M/mm3 (4.20-5.40); Red Cell Distribution Width 12.9 % (11.6-14.4)
--- OUTSIDE RECORDS SUMMARY | 2024-11-22 08:20 | XMS_ITS | Encounter Summary ---
Author Organization [facility] Address [facility] [place] [address] Care Team Providers Care Production Line Manager Name Role Phone Liliam Espinoza MD Primary Care Provider [phone] Encounter Details Date Type Department Care Team (Late st Contact Info) Description 05/04/2024 Hospital Orders Only [facility] [address] [facility] [place] [address] Alexandria Calixto MD [address] [place], [place] [id number] Social History Tobacco Use Types Packs/Day Years [...] on filedocumented in this encounter Care Teams Production Line Manager Relationship Specialty Start Date End Date Lilima Espinoza MD [address] [place] [address] PCP - General INTERNAL MEDICINE 05/04/24 documented as of this encounter
--- OUTSIDE RECORDS SUMMARY | 2024-11-22 08:20 | XMS_ITS | Clinical Summary ---
Author Organization [facility] Address [address] [place] [address] Phone Care Team Providers Care Stoker Installer Name Role Phone Unavailable Unavailable Unavailable Reason for Visit and Chief Complaint WELLNESS SPECIALIST EXAM Plan of Treatment No Plan of [...] Location Date Check-In Time Check-Out Time Diagnosis WELLNESS SPECIALIST EXAM SUZY ZAIDI M.D. [facility] CORRECTIVE THERAPIST 06/17/2007 9:53AM 11:09AM Clinical Notes Includes: Clinical Notes from this encounter No Clinical Notes Recorded
--- OUTSIDE RECORDS SUMMARY | 2024-11-22 08:20 | XMS_ITS | Clinical Summary ---
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
--- OUTSIDE RECORDS SUMMARY | 2024-11-22 08:20 | XMS_ITS ---
Author Organization [facility] Address [address] [place] [address] Phone Care Team Providers Care Wooden Fence Erector Name Role Phone Unavailable Unavailable Unavailable Plan of Treatment No Plan of Treatment Recorded Assessments Includes: Assessments for all patient encounters No Assessments Recorded Medical Equipment - Implanted Devices Includes: Current and historical Devices No Medical Equipment Recorded Medications Administered Includes: Administered Medications in patient's chart No Administered Medications Recorded Results Includes: Results from 11/22/2023 through 11/22/2024 No Results Recorded For Specified Dates History [...]
--- OUTSIDE RECORDS SUMMARY | 2024-11-22 08:20 | XMS_ITS | Clinical Summary ---
Author Organization [facility] Address [facility] [place] [address] Care Team Providers Care Methods Analyst Name Role Phone Liliam Espinoza MD Primary Care Provider Allergies Active Allergy Reactions Criticality Noted Date [...] age to complete this topic Insurance [facility] MEDICARE [facility] Care Teams Methods Analyst Relationship Specialty Start Date End Date Liliam Espinoza MD [address] [place] [address] PCP - General INTERNAL MEDICINE 05/04/24
--- OUTSIDE RECORDS SUMMARY | 2024-11-22 08:20 | XMS_ITS | Clinical Summary ---
Author Organization [facility] Address [address] [place] [address] Phone Care Team Providers Care Agricultural Specialist Name Role Phone Unavailable Unavailable Unavailable Reason for Visit and Chief Complaint HELPDESK MANAGER EXAM Plan of Treatment No Plan of [...] Location Date Check-In Time Check-Out Time Diagnosis HELPDESK MANAGER EXAM SUZY ZAIDI M.D. 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
--- OUTSIDE RECORDS SUMMARY | 2024-11-22 08:20 | XMS_ITS ---
Author Organization [facility] Address [address] [place], [place] [id number] Care Team Providers Care Education General Manager Name Role Phone RobertoRIN andrade Unavailable [phone] Liliam Espinoza Unavailable Unavailable SCOTT NUNEZ Unavailable [phone] Allergies Allergen (clinical drug ingredient) Drug/Non Drug Allergy documented on EMR Reaction Allergy Type Onset Date Status Iodine Unknown Drug Allergy 09/17/2012 active REASON FOR VISIT *General care Medications Medication SIG (Take, Route, Frequency, Duration) Notes Start Date End Date Status silver sulfadiazine 10 MG/ML Topical Cream [SSD] CUTANEOUS silver sulfadiazine 10 MG/ML Topical Cream [SSD]Original Medicationsilver sulfadiazine 10 MG/ML Topical Cream [SSD] *Reorder from [employer] for eRx and Interaction Alerts* 09/17/2012 Active esomeprazole 40 MG Delayed Release Oral Capsule [Nexium] ORAL esomeprazole 40 MG Delayed Release Oral Capsule [Nexium]Original Medicationesomeprazole 40 MG Delayed Release Oral Capsule [Nexium] *Reorder from [employer] for eRx and Interaction Alerts* 09/17/2012 Active aspirin 162 MG Delayed Release Oral Tablet ORAL aspirin 162 MG Delayed Release Oral TabletOriginal Medicationaspirin 162 MG Delayed Release Oral Tablet *Reorder from [employer] for eRx and Interaction Alerts* 09/17/2012 Active amoxicillin 200 MG Chewable Tablet ORAL amoxicillin 200 MG Chewable TabletOriginal Medicationamoxicillin 200 MG Chewable Tablet *Reorder from [employer] for eRx and Interaction Alerts* 09/17/2012 Active alprazolam 0.25 MG Oral Tablet [Xanax] ORAL alprazolam 0.25 MG Oral Tablet [Xanax]Original Medicationalprazolam 0.25 MG Oral Tablet [Xanax] *Reorder from [facility] for eRx and Interaction Alerts* 09/17/2012 Active Desmopressin Acetate 0.2 MG Oral Tablet ORAL desmopressin acetate 0.2 MG Oral TabletOriginal Medicationdesmopressin acetate 0.2 MG Oral Tablet *Reorder from [facility] for eRx and Interaction Alerts* 09/17/2012 Active Encounters Encounter Location Date Provider Diagnosis [address] [id number] 06/09/2024 SCOTT ANGIEBALTAALY Other hammer toe(s) (acquired), right foot M20.41 ; Tinea unguium B35.1 ; Other hammer toe(s) (acquired), left foot M20.42 ; Pain in right toe(s) M79.674 ; Pain in left toe(s) M79.675 ; 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 The patient was given education about shoe recommendations specific for the condition. The patient was educated about custom orthotics and how appropriate shoes and orthotics can prevent further worsening of the deformity. The patient was educated about how bad shoe habits can worsen the condition. NSAIDS, P.T., injections and other conservative treatments were discussed. Both surgical and non surgical treatments were discussed, but conservative options were emphasized. 06/09/2024 Tinea unguium (ICD-10 - B35.1) Aseptic debridement of elongated thickened nails x 10 using sterile nippers, nails were debrided in length and thickness by 30% utilizing a nail nipper without incident. The patient was educated regarding all treatment options that include topical and oral antifungal treatments. I discussed the options of taking a sample of the nail to confirm diagnosis. Nail clippings were not sent for pathology analysis. The patient was educated why and how the fungal infection evolved in their feet and the patient was given information regarding how to prevent further infection. The patient was told to keep feet dry and change socks. The patient was told to be careful with old shoes and excessive sweating. The patient was educated regarding both OTC and prescription treatments. 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 After removal of overlying extensive hyperkeratosis, healthy tissue was noted and care was taken to assure that no undermining or probing was present. It should be noted that no probing was noted and no infection or drainage was noted. Plan Of Treatment Treatment Notes Assessment Notes Other hammer toe(s) (acquired), right fo ot The patient was educated regarding how to mechanically stabilize their deformity. The patient was given education about shoe recommendations specific for the condition. The patient was educated about custom orthotics and how appropriate shoes and orthotics can prevent further worsening of the deformity. The patient was educated about how bad shoe habits can worsen the condition. NSAIDS, P.T., injections and other conservative treatments were discussed. Both surgical and non surgical treatments were discussed, but conservative options were emphasized. Tinea unguium Aseptic debridement of elongated thickened nails x 10 using sterile nippers, nails were debrided in length and thickness by 30% utilizing a nail nipper without incident. The patient was educated regarding all treatment options that include topical and oral antifungal treatments. I discussed the options of taking a sample of the nail to confirm diagnosis. Nail clippings were not sent for pathology analysis. The patient was educated why and how the fungal infection evolved in their feet and the patient was given information regarding how to prevent further infection. The patient was told to keep feet dry and change socks. The patient was told to be careful with old shoes and excessive sweating. The patient was educated regarding both OTC and prescription treatments. 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 After removal of overlying extensive hyperkeratosis, healthy tissue was noted and care was taken to assure that no undermining or probing was present. It should be noted that no probing was noted and no infection or drainage was noted. Next Appt Details Follow Up: 3 Months, Reason: Provider Name:ANDREW FERREIRA, 11:40:00 AM, [address] [place] [address], [phone], Progress Notes * JACOB KAPADIA ADOB: [birth year] (83 yo F)Acc No.[id number]:06/09/2024 Patient: JACOB HUERTA Provider: Paty NUNEZ :1940 A ge:83 Y S ex:Female Date:06/09/2024 Address:[address] [place], [place] [id number] Subjective: * Chief Complaints: * 1 . *General care. * HPI: H PI: General care P atient presents to the office for at risk foot care. Patient states that their nails are thickened, elongated and painful. Patient states that it is aggravated by shoe gear. Onset is gradual. Patient denies being diabetic., Patient denies taking blood thinners., Date last seen by Dr. Espinoza was 04/2024., Initials mca. * ROS: G eneral / Constitutional: Patient denies w eakness. R espiratory: Patient denies c hronic cough, shortness of breath, sputum production. C ardiovascular: Patient denies c hest pain, history of NC, irregular heartbeat. M usculoskeletal: Patient complains of j oint pain, hammertoes. ? P eripheral Vascular: Patient denies b lanching of skin, cold extremities, decreased sensation in extremities. S kin: Patient complains of f ungal nails, discoloration, nail changes, calluses and corns. N eurologic: Patient denies d izziness, gait abnormality, headache. * Medical History: * Medications: T aking Desmopressin Acetate 0.2 MG Oral Tablet ORAL , Notes to Pharmacist: desmopressin acetate 0.2 MG Oral TabletOriginal Medicationdesmopressin acetate 0.2 MG Oral Tablet *Reorder from [facility] for eRx and Interaction Alerts*, Taking alprazolam 0.25 MG Oral Tablet [Xanax] ORAL , Notes to Pharmacist: alprazolam 0.25 MG Oral Tablet [Xanax]Original Medicationalprazolam 0.25 MG Oral Tablet [Xanax] *Reorder from [facility] for eRx and Interaction Alerts*, Taking amoxicillin 200 MG Chewable Tablet ORAL , Notes to Pharmacist: amoxicillin 200 MG Chewable TabletOriginal Medicationamoxicillin 200 MG Chewable Tablet *Reorder from [facility] for eRx and Interaction Alerts*, Taking aspirin 162 MG Delayed Release Oral Tablet ORAL , Notes to Pharmacist: aspirin 162 MG Delayed Release Oral TabletOriginal Medicationaspirin 162 MG Delayed Release Oral Tablet *Reorder from [facility] for eRx and Interaction Alerts*, Taking esomeprazole 40 MG Delayed Release Oral Capsule [Nexium] ORAL , Notes to Pharmacist: esomeprazole 40 MG Delayed Release Oral Capsule [Nexium]Original Medicationesomeprazole 40 MG Delayed Release Oral Capsule [Nexium] *Reorder from [facility] for eRx and Interaction Alerts*, Taking silver sulfadiazine 10 MG/ML Topical Cream [SSD] CUTANEOUS , Notes to Pharmacist: silver sulfadiazine 10 MG/ML Topical Cream [SSD]Original Medicationsilver sulfadiazine 10 MG/ML Topical Cream [SSD] *Reorder from [facility] for eRx and Interaction Alerts* * Allergies: I odine: Allergy - Onset Date 09/17/2012. Objective: * Vitals: * Examination: P hysical Examination: V ascular: Dorsalis Pedis pulse noted at 1/4 right foot and 1/4 left foot and Posterior Tibial pulse noted at 1/4 right foot and 1/4 left foot, Capillary refill times noted to be less than three seconds x ten, Temperature gradient noted to be warm to cool to bilateral foot, pedal hair present to bilateral foot and no varicosities are noted Dermatologic: there are no open lesions, no signs of active clinical infection, no erythema noted, no ecchymoses, nails are elongated thickened and dystrophic with subungual debris x ten, hyperkeratotic lesion noted sub third and first metatarsal head right foot Musculoskeletal: there is pain to palpation onto nail plate x ten, no calf pain noted bilaterally, arch height noted at 2/5 non-weight bearing bilaterally, first metatarsophalangeal joint range of motion 30 deg non-weight bearing bilaterally, pain to palpation hyperkeratotic lesion sub third and first metatarsal head right foot, flexible fifth digit hammer toe deformity noted to bilateral foot reducible with kelikian push up test Neurology: protective sensation intact to light touch bilateral digits one through five, vibratory sensation intact to first metatarsophalangeal joint bilaterally. Assessment: * Assessment: 1. T inea unguium - B35.1 (Primary) 2 . O ther hammer toe(s) (acquired), right foot - M20.41 3 . O ther hammer toe(s) (acquired), left foot - M20.42 ? 4 . P ain in right toe(s) - M79.674 5 . P ain in left toe(s) - M79.675 6 . U nspecified atherosclerosis of wiyot arteries of extremities, bilateral legs - I70.203 7 . A cquired keratosis [keratoderma] palmaris et plantaris - L85.1 Plan: * Treatment: 2. O ther hammer toe(s) (acquired), right foot Notes: The patient was educated regarding how to mechanically stabilize their deformity. The patient was given education about shoe recommendations specific for the condition. The patient was educated about custom orthotics and how appropriate shoes and orthotics can prevent further worsening of the deformity. The patient was educated about how bad shoe habits can worsen the condition. NSAIDS, P.T., injections and other conservative treatments were discussed. Both surgical and non surgical treatments were discussed, but conservative options were emphasized. 3. U nspecified atherosclerosis of wiyot arteries of extremities, bilateral legs Notes: Patient educated on risks and aggravating factors of PVD, including conservative treatment options such as a diet and exercise regimen to aid in slowing progression of vascular disease ? 4. 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 After removal of overlying extensive hyperkeratosis, healthy tissue was noted and care was taken to assure that no undermining or probing was present. It should be noted that no probing was noted and no infection or drainage was noted. ? * Procedure Codes: 1 1056 TRIM SKIN LESIONS, 2 TO 4, Modifiers: Q8 , 10586 DEBRIDE NAIL, 6 OR MORE, Modifiers: 59 , Q8 * Follow Up: 3 Months * Billing Information: * Visit Code: * Procedure Codes: 03148 TRIM SKIN LESIONS, 2 TO 4. Modifiers: Q8 20407 DEBRIDE NAIL, 6 OR MORE. 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 Patient states that their nails are thickened, elongated and painful. Patient states that it is aggravated by shoe gear. Onset is gradual. Patient denies being diabetic., Patient denies taking blood thinners., Date last seen by Dr. Espinoza was 04/2024., Initials mca Examination Category Sub-Category Detail Notes Category Not es Physical Examination Vascular: Dorsalis Pedis pulse noted at 1/4 right foot and 1/4 left foot and Posterior Tibial pulse noted at 1/4 right foot and 1/4 left foot, Capillary refill times noted to be less than three seconds x ten, Temperature gradient noted to be warm to cool to bilateral foot, pedal hair present to bilateral foot and no varicosities are noted Dermatologic: there are no open lesions, no signs of active clinical infection, no erythema noted, no ecchymoses, nails are elongated thickened and dystrophic with subungual debris x ten, hyperkeratotic lesion noted sub third and first metatarsal head right foot Musculoskeletal: there is pain to palpation onto nail plate x ten, no calf pain noted bilaterally, arch height noted at 2/5 non-weight bearing bilaterally, first metatarsophalangeal joint range of motion 30 deg non-weight bearing bilaterally, pain to palpation hyperkeratotic lesion sub third and first metatarsal head right foot, flexible fifth digit hammer toe deformity noted to bilateral foot reducible with kelikian push up test Neurology: protective sensation intact to light touch bilateral digits one through five, vibratory sensation intact to first metatarsophalangeal joint bilaterally
--- OUTSIDE RECORDS SUMMARY | 2024-11-22 08:20 | XMS_ITS | Patient Health Record ---
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 Name Role Phone Dora RIN Unavailable [phone] Liliam Espinoza Unavailable Unavailable JHON ANDREW Unavailable [phone] SCOTT NUNEZ Unavailable [phone] Allergies Allergen (clinical drug ingredient) Drug/Non Drug Allergy documented on EMR Reaction Allergy Type Onset Date Status Iodine Unknown Drug Allergy 09/17/2012 active Reason For Referral No Information Medications Medication SIG (Take, Route, Frequency, Duration) Notes Start Date End Date Status alprazolam 0.25 MG Oral Tablet [Xanax] ORAL alprazolam 0.25 MG Oral Tablet [Xanax]Original Medicationalprazolam 0.25 MG Oral Tablet [Xanax] *Reorder from [employer] for eRx and Interaction Alerts* 09/17/2012 Active Desmopressin Acetate 0.2 MG Oral Tablet ORAL desmopressin acetate 0.2 MG Oral TabletOriginal Medicationdesmopressin acetate 0.2 MG Oral Tablet *Reorder from [employer] for eRx and Interaction Alerts* 09/17/2012 Active aspirin 162 MG Delayed Release Oral Tablet ORAL aspirin 162 MG Delayed Release Oral TabletOriginal Medicationaspirin 162 MG Delayed Release Oral Tablet *Reorder from [employer] for eRx and Interaction Alerts* 09/17/2012 Active amoxicillin 200 MG Chewable Tablet ORAL amoxicillin 200 MG Chewable TabletOriginal Medicationamoxicillin 200 MG Chewable Tablet *Reorder from [employer] for eRx and Interaction Alerts* 09/17/2012 Active silver sulfadiazine 10 MG/ML Topical Cream [SSD] CUTANEOUS silver sulfadiazine 10 MG/ML Topical Cream [SSD]Original Medicationsilver sulfadiazine 10 MG/ML Topical Cream [SSD] *Reorder from [employer] for eRx and Interaction Alerts* 09/17/2012 Active esomeprazole 40 MG Delayed Release Oral Capsule [Nexium] ORAL esomeprazole 40 MG Delayed Release Oral Capsule [Nexium]Original Medicationesomeprazole 40 MG Delayed Release Oral Capsule [Nexium] *Reorder from [employer] for eRx and Interaction Alerts* 09/17/2012 Active Immunizations Vaccine Route Administration Date Status Comme nts Influenza, high dose seasonal Unknown 07/24/2023 Admini stered Vital Signs Height-cm 167.64 cm 02/04/2024 Weight-kg 72.57 kg 02/04/2024 Height 66.00 in 02/04/2024 Weight 160 lbs 02/04/2024 BMI 25.82 kg/m2 02/04/2024 Encounters Encounter Location Date Provider Diagnosis [address] [id number] 12/03/2023 SCOTT NUNEZ Other hammer toe(s) (acquired), right foot M20.41 ; Tinea unguium B35.1 ; Other hammer toe(s) (acquired), left foot M20.42 ; Pain in right toe(s) M79.674 ; Pain in left toe(s) M79.675 ; Pain in right foot M79.671 ; Unspecified atherosclerosis of [place] arteries of extremities, bilateral legs I70.203 and Acquired keratosis [keratoderma] palmaris et plantaris L85.[address] [id number] 02/04/2024 SCOTT NUNEZ Other hammer toe(s) (acquired), right foot M20.41 ; Tinea unguium B35.1 ; Other hammer toe(s) (acquired), left foot M20.42 ; Pain in right toe(s) M79.674 ; Pain in left toe(s) M79.675 ; Pain in right foot M79.671 ; Unspecified atherosclerosis of [place] arteries of extremities, bilateral legs I70.203 and Acquired keratosis [keratoderma] palmaris et plantaris L85.1 [facility] [address] [place], [place] [id number] 04/07/2024 SCOTT NUNEZ Other hammer toe(s) (acquired), right foot M20.41 ; Tinea unguium B35.1 ; Other hammer toe(s) (acquired), left foot M20.42 ; Pain in right toe(s) M79.674 ; Pain in left toe(s) M79.675 ; Unspecified atherosclerosis of [place] arteries of extremities, bilateral legs I70.203 and Acquired keratosis [keratoderma] palmaris et plantaris L85.[address] [id number] 06/09/2024 SCOTT NUNEZ Other hammer toe(s) (acquired), right foot M20.41 ; Tinea unguium B35.1 ; Other hammer toe(s) (acquired), left foot M20.42 ; Pain in right toe(s) M79.674 ; Pain in left toe(s) M79.675 ; Unspecified atherosclerosis of [place] arteries of extremities, bilateral legs I70.203 and Acquired keratosis [keratoderma] palmaris et plantaris L85.[address] [id number] 08/11/2024 SCOTT NUNEZ Other hammer toe(s) (acquired), right foot M20.41 ; Tinea unguium B35.1 ; Other hammer toe(s) (acquired), left foot M20.42 ; Pain in right toe(s) M79.674 ; Pain in left toe(s) M79.675 ; Unspecified atherosclerosis of [place] arteries of extremities, bilateral legs I70.203 and Acquired keratosis [keratoderma] palmaris et plantaris L85.1 [address] [place] [place], [place] [id number] 10/13/2024 ANDREW FERREIRA Tinea unguium B35.1 ; Pain in right foot M79.671 ; Pain in left foot M79.672 ; Atherosclerosis of [place] arteries of extremities with intermittent claudication, bilateral legs I70.213 and Acquired keratosis [keratoderma] palmaris et plantaris L85.1 Assessments Encounter Date Diagnosis (ICD Code) Assessment Notes Treatment Notes Treatment Clinical Notes Section Notes 12/03/2023 Tinea unguium (ICD-10 - B35.1) Aseptic debridement [...] educated regarding both OTC and prescription treatments. 12/03/2023 Other hammer toe(s) (acquired), right foot (ICD-10 [...] were discussed, but conservative options were emphasized. 02/04/2024 Tinea unguium (ICD-10 - B35.1) Aseptic debridement [...] educated regarding both OTC and prescription treatments. 02/04/2024 Other hammer toe(s) (acquired), right foot (ICD-10 [...] were discussed, but conservative options were emphasized. 04/07/2024 Tinea unguium (ICD-10 - B35.1) Aseptic debridement [...] educated regarding both OTC and prescription treatments. 04/07/2024 Other hammer toe(s) (acquired), right foot (ICD-10 [...] discussed, but conservative options were emphasized. 06/09/2024 Other hammer toe(s) (acquired), right foot [...] educated regarding both OTC and prescription treatments. 08/11/2024 Tinea unguium (ICD-10 - B35.1) Aseptic debridement [...] educated regarding both OTC and prescription treatments. 08/11/2024 Other hammer toe(s) (acquired), right foot (ICD-10 [...] were discussed, but conservative options were emphasized. 10/13/2024 Tinea unguium (ICD-10 - B35.1) Nails 1-5 Bilateral were debrided extensively with nail nippers and emery board, reducing length and girth to pink healthy tissue with any subungual debris and necrotic tissue removed 10/13/2024 Pain in right foot (ICD-10 - M79.671) 10/13/2024 Pain in left foot (ICD-10 - M79.672) 08/11/2024 Other hammer toe(s) (acquired), left foot (ICD-10 - M20.42) 06/09/2024 Other hammer toe(s) (acquired), left foot (ICD-10 - M20.42) 04/07/2024 Other hammer toe(s) (acquired), left foot (ICD-10 - M20.42) 02/04/2024 Other hammer toe(s) (acquired), left foot (ICD-10 - M20.42) 12/03/2023 Other hammer toe(s) (acquired), left foot (ICD-10 - M20.42) 12/03/2023 Pain in right toe(s) (ICD-10 - M79.674) 04/07/2024 Pain in right toe(s) (ICD-10 - M79.674) 02/04/2024 Pain in right toe(s) (ICD-10 - M79.674) 06/09/2024 Pain in right toe(s) (ICD-10 - M79.674) 08/11/2024 Pain in right toe(s) (ICD-10 - M79.674) 10/13/2024 Atherosclerosis of [place] arteries of extremities with intermittent claudication, bilateral legs (ICD-10 - I70.213) 10/13/2024 Acquired keratosis [keratoderma] palmaris et plantaris (ICD-10 - L85.1) A total of 3 corns or calluses, as described in the note above, were cut and pared utilizing a #15 blade 08/11/2024 Pain in left toe(s) (ICD-10 - M79.675) 06/09/2024 Pain in left toe(s) (ICD-10 - M79.675) 02/04/2024 Pain in left toe(s) (ICD-10 - M79.675) 04/07/2024 Pain in left toe(s) (ICD-10 - M79.675) 12/03/2023 Pain in left toe(s) (ICD-10 - M79.675) 12/03/2023 Pain in right foot (ICD-10 - M79.671) 02/04/2024 Pain in right foot (ICD-10 - M79.671) 04/07/2024 Unspecified atherosclerosis of [place] arteries of extremities, bilateral legs (ICD-10 - I70.203) Patient educated on risks and aggravating factors of PVD, including conservative treatment options such as a diet and exercise regimen to aid in slowing progression of vascular disease 08/11/2024 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 08/11/2024 Acquired keratosis [keratoderma] palmaris et plantaris (ICD-10 [...] and no infection or drainage was noted. 04/07/2024 Acquired keratosis [keratoderma] palmaris et plantaris (ICD-10 [...] and no infection or drainage was noted. 02/04/2024 Unspecified atherosclerosis of [place] arteries of extremities, bilateral legs (ICD-10 - I70.203) Patient educated on risks and aggravating factors of PVD, including conservative treatment options such as a diet and exercise regimen to aid in slowing progression of vascular disease 12/03/2023 Unspecified atherosclerosis of [place] arteries of extremities, bilateral legs (ICD-10 - I70.203) Patient educated on risks and aggravating factors of PVD, including conservative treatment options such as a diet and exercise regimen to aid in slowing progression of vascular disease 12/03/2023 Acquired keratosis [keratoderma] palmaris et plantaris (ICD-10 [...] and no infection or drainage was noted. 02/04/2024 Acquired keratosis [keratoderma] palmaris et plantaris (ICD-10 [...] or drainage was noted. Plan Of Treatment Next Appt Details Provider Name:ANDREW FERREIRA, 11:40:00 AM, [address] [place] [address], [phone], Insurance Providers Payer Name Payer Address Payer Phone Subscriber Number Group Number Insured Name Patient Relationship to Insured Coverage Start Date Coverage End Date Medicare Part B [facility] [address] [place] [phone] [id number] JACOB KAPADIA Self - patient is the insured [place] [employer] [place] [address] [facility] [id number] JACOB KAPADIA Self - patient is the insured
--- OUTSIDE RECORDS SUMMARY | 2024-11-22 08:20 | XMS_ITS ---
Author Organization [facility] Address [address] [place], [place] [id number] Care Team Providers Care Peripheral Edp Equipment Operator Name Role Phone RobertoRIN andrade Unavailable [phone] Liliam Zurita Unavailable Unavailable SCOTT NUNEZ Unavailable [phone] Allergies Allergen (clinical drug ingredient) Drug/Non Drug Allergy documented on EMR Reaction Allergy Type Onset Date Status Iodine Unknown Drug Allergy 09/17/2012 active REASON FOR VISIT *General care Medications Medication SIG (Take, Route, Frequency, Duration) Notes Start Date End Date Status alprazolam 0.25 MG Oral Tablet [Xanax] ORAL alprazolam 0.25 MG Oral Tablet [Xanax]Original Medicationalprazolam 0.25 MG Oral Tablet [Xanax] *Reorder from [employer] for eRx and Interaction Alerts* 09/17/2012 Active Desmopressin Acetate 0.2 MG Oral Tablet ORAL desmopressin acetate 0.2 MG Oral TabletOriginal Medicationdesmopressin acetate 0.2 MG Oral Tablet *Reorder from [employer] for eRx and Interaction Alerts* 09/17/2012 Active silver sulfadiazine 10 MG/ML Topical Cream [SSD] CUTANEOUS silver sulfadiazine 10 MG/ML Topical Cream [SSD]Original Medicationsilver sulfadiazine 10 MG/ML Topical Cream [SSD] *Reorder from [employer] for eRx and Interaction Alerts* 09/17/2012 Active aspirin 162 MG Delayed Release Oral Tablet ORAL aspirin 162 MG Delayed Release Oral TabletOriginal Medicationaspirin 162 MG Delayed Release Oral Tablet *Reorder from [employer] for eRx and Interaction Alerts* 09/17/2012 Active esomeprazole 40 MG Delayed Release Oral Capsule [Nexium] ORAL esomeprazole 40 MG Delayed Release Oral Capsule [Nexium]Original Medicationesomeprazole 40 MG Delayed Release Oral Capsule [Nexium] *Reorder from [facility] for eRx and Interaction Alerts* 09/17/2012 Active amoxicillin 200 MG Chewable Tablet ORAL amoxicillin 200 MG Chewable TabletOriginal Medicationamoxicillin 200 MG Chewable Tablet *Reorder from [facility] for eRx and Interaction Alerts* 09/17/2012 Active Encounters Encounter Location Date Provider Diagnosis [address] [id number] 08/11/2024 SCOTT MAYRA Other hammer toe(s) (acquired), right foot M20.41 ; Tinea unguium B35.1 ; Other hammer toe(s) (acquired), left foot M20.42 ; Pain in right toe(s) M79.674 ; Pain in left toe(s) M79.675 ; Unspecified atherosclerosis of [place] arteries of extremities, bilateral legs I70.203 and Acquired keratosis [keratoderma] palmaris et plantaris L85.1 Assessments Encounter Date Diagnosis (ICD Code) Assessment Notes Treatment Notes Treatment Clinical Notes Section Notes 08/11/2024 Other hammer toe(s) (acquired), right foot [...] were discussed, but conservative options were emphasized. 08/11/2024 Tinea unguium (ICD-10 - B35.1) Aseptic [...] prescription treatments. 08/11/2024 Other hammer toe(s) (acquired), left foot (ICD-10 - M20.42) 08/11/2024 Pain in right toe(s) (ICD-10 - M79.674) 08/11/2024 Pain in left toe(s) (ICD-10 - M79.675) 08/11/2024 Unspecified atherosclerosis of [place] arteries of extremities, bilateral legs (ICD-10 - I70.203) Patient educated on risks and aggravating factors of PVD, including conservative treatment options such as a diet and exercise regimen to aid in slowing progression of vascular disease 08/11/2024 Acquired keratosis [keratoderma] palmaris et plantaris [...] OTC and prescription treatments. Unspecified atherosclerosis of [place] arteries of extremities, bilateral legs Patient educated [...] Months, Reason: Provider Name:ANDREW FERREIRA, 11:40:00 AM, [address] [place] [address], [phone], Progress Notes * JACOB KAPADIA ADOB: [birth year] (83 yo F)Acc No.[id number]:08/11/2024 Patient: JACOB HUERTA Provider: Paty NUNEZ :1940 A ge:83 Y S ex:Female Date:08/11/2024 Address:[address] [place], [place] [id number] Subjective: * Chief Complaints: * 1 . *General care. * HPI: H PI: General care P atient presents to the office for at risk foot care. Patient states that their nails are thickened, elongated and painful. Patient states that it is aggravated by shoe gear. Onset is gradual. Patient denies being diabetic., Patient denies taking blood thinners., Date last seen by Dr. zurita was 07/2024., Initials mca. * ROS: G eneral / Constitutional: Patient denies w eakness. R espiratory: Patient denies c hronic cough, shortness of breath, sputum production. C ardiovascular: Patient denies c hest pain, history of KS, irregular heartbeat. M usculoskeletal: Patient complains of [...] acetate 0.2 MG Oral Tablet *[facility] for eRx and Interaction Alerts*, Taking alprazolam 0.25 MG Oral Tablet [Xanax] ORAL , Notes to Pharmacist: alprazolam 0.25 MG Oral Tablet [Xanax]Original Medicationalprazolam 0.25 MG Oral Tablet [Xanax] *Reorder [facility] for eRx and Interaction Alerts*, Taking amoxicillin 200 MG Chewable Tablet ORAL , Notes to Pharmacist: amoxicillin 200 MG Chewable TabletOriginal Medicationamoxicillin 200 MG Chewable Tablet *Re[facility]Rx and Interaction Alerts*, Taking aspirin 162 MG Delayed Release Oral Tablet ORAL , Notes to Pharmacist: aspirin 162 MG Delayed Release Oral TabletOriginal Medicationaspirin 162 MG Delayed Release Oral Tablet *Re[facility]Rx and Interaction Alerts*, Taking esomeprazole 40 MG Delayed Release Oral Capsule [Nexium] ORAL , Notes to Pharmacist: esomeprazole 40 MG Delayed Release Oral Capsule [Nexium]Original Medicationesomeprazole 40 MG Delayed Release Oral Capsule [Nexium] *[facility]Rx and Interaction Alerts*, Taking silver sulfadiazine 10 MG/ML Topical Cream [SSD] CUTANEOUS , Notes to Pharmacist: silver sulfadiazine 10 MG/ML Topical Cream [SSD]Original Medicationsilver sulfadiazine 10 MG/ML Topical Cream [SSD] *Reorder from [facility] for eRx and Interaction Alerts* * Allergies: [...] M79.675 6 . U nspecified atherosclerosis of [place] arteries of extremities, bilateral legs - I70.203 [...] were emphasized. 3. U nspecified atherosclerosis of [place] arteries of extremities, bilateral legs Notes: Patient [...] LESIONS, 2 TO 4, Modifiers: Q8 , 93555 DEBRIDE NAIL, 6 OR MORE, Modifiers: 59 , Q8 * Follow Up: 3 Months * Billing Information: * Visit Code: * Procedure Codes: 39677 TRIM SKIN LESIONS, 2 TO 4. Modifiers: Q8 74453 DEBRIDE NAIL, 6 OR MORE. Modifiers: 59, Q8 * INFORMATICS Sign off status: Completed true * Provider: Paty NUNEZ Date: 10/11/2023 Generated for Patrick garay/Stephanie/Carlos Manuel on: 0 11/22/2024 08:20 AM RN INFORMATICS History and Physical Notes * HPI (History [...] blood thinners., Date last seen by Dr. zurita was 07/2024., Initials mca Examination Category Sub-Category Detail Notes [...]
--- OUTSIDE RECORDS SUMMARY | 2024-11-22 08:20 | XMS_ITS ---
Author Organization [facility] Address [address] [place], [place] [id number] Care Team Providers Care Teacher Education Director Name Role Phone RobetroRIN andrade Unavailable [phone] iLliam Espinoza Unavailable Unavailable ANDREW FERREIRA Unavailable [phone] Allergies Allergen (clinical drug ingredient) Drug/Non Drug Allergy documented on EMR Reaction Allergy Type Onset Date Status Iodine Unknown Drug Allergy 09/17/2012 active REASON FOR VISIT Patient presents for at-risk foot care . The patient has painful toenails and calluses that are causing difficulty with ambulation and shoegear. The onset is gradual Medications Medication SIG (Take, Route, Frequency, Duration) Notes Start Date End Date Status alprazolam 0.25 MG Oral Tablet [Xanax] ORAL alprazolam 0.25 MG Oral Tablet [Xanax]Original Medicationalprazolam 0.25 MG Oral Tablet [Xanax] *Reorder from [employer] for eRx and Interaction Alerts* 09/17/2012 Active aspirin 162 MG Delayed Release Oral Tablet ORAL aspirin 162 MG Delayed Release Oral TabletOriginal Medicationaspirin 162 MG Delayed Release Oral Tablet *Reorder from [employer] for eRx and Interaction Alerts* 09/17/2012 Active amoxicillin 200 MG Chewable Tablet ORAL amoxicillin 200 MG Chewable TabletOriginal Medicationamoxicillin 200 MG Chewable Tablet *Reorder from [employer] for eRx and Interaction Alerts* 09/17/2012 Active silver sulfadiazine 10 MG/ML Topical Cream [SSD] CUTANEOUS silver sulfadiazine 10 MG/ML Topical Cream [SSD]Original Medicationsilver sulfadiazine 10 MG/ML Topical Cream [SSD] *Reorder from [employer] for eRx and Interaction Alerts* 09/17/2012 Active esomeprazole 40 MG Delayed Release Oral Capsule [Nexium] ORAL esomeprazole 40 MG Delayed Release Oral Capsule [Nexium]Original Medicationesomeprazole 40 MG Delayed Release Oral Capsule [Nexium] *Reorder from [employer] for eRx and Interaction Alerts* 09/17/2012 Active Desmopressin Acetate 0.2 MG Oral Tablet ORAL desmopressin acetate 0.2 MG Oral TabletOriginal Medicationdesmopressin acetate 0.2 MG Oral Tablet *Reorder from [employer] for eRx and Interaction Alerts* 09/17/2012 Active Encounters Encounter Location Date Provider Diagnosis [place] [address], [place] [id number] 10/13/2024 ANDREW FERREIRA Tinea unguium B35.1 ; Pain in right foot M79.671 ; Pain in left foot M79.672 ; Atherosclerosis of [place] arteries of extremities with intermittent claudication, bilateral legs I70.213 and Acquired keratosis [keratoderma] palmaris et plantaris L85.1 Assessments Encounter Date Diagnosis (ICD Code) Assessment Notes Treatment Notes Treatment Clinical Notes Section Notes 10/13/2024 Tinea unguium (ICD-10 - B35.1) Nails 1-5 Bilateral were debrided extensively with nail nippers and emery board, reducing length and girth to pink healthy tissue with any subungual debris and necrotic tissue removed 10/13/2024 Pain in right foot (ICD-10 - M79.671) 10/13/2024 Pain in left foot (ICD-10 - M79.672) 10/13/2024 Atherosclerosis of little shell tribe arteries of extremities with intermittent claudication, bilateral legs (ICD-10 - I70.213) 10/13/2024 Acquired keratosis [keratoderma] palmaris et plantaris (ICD-10 - L85.1) A total of 3 corns or calluses, as described in the note above, were cut and pared utilizing a #15 blade Plan Of Treatment Treatment Notes Assessment Notes Tinea unguium Nails 1-5 Bilateral were debrided extensively with nail nippers and emery board, reducing length and girth to pink healthy tissue with any subungual debris and necrotic tissue removed Acquired keratosis [keratode rma] palmaris et plantaris A total of 3 corns or calluses, as described in the note above, were cut and pared utilizing a #15 blade Next Appt Details Follow Up: 10 - 12 weeks, Re ason: At-Risk Foot care, sooner if problems develop. Provider Name:ANDREW FERREIRA, 11:40:00 AM, [address] [place] [address], [phone], Progress Notes * KANGJACOB ADOB: [birth year] (83 yo F)Acc No.[id number]:10/13/2024 Patient: JACOB HUERTA Provider: Rosalie Ferreira DPM :1940 A ge:83 Y S ex:Female Date:10/13/2024 Address:[address] [place], [place] [id number] Subjective: * Chief Complaints: * Brian humphries presents for at-risk foot care . The patient has painful toenails and calluses that are causing difficulty with ambulation and shoegear. The onset is gradual * HPI: H PI: General care Brian humphries presents to the office for at risk foot care. Patient states that their nails are thickened, elongated and painful. Patient states that it is aggravated by shoe gear. Onset is gradual. Patient denies being diabetic., Patient denies taking blood thinners., Date last seen by Dr. Espinoza was 09/2024., Initials [facility]. * Medical History: * Surgical History: * Hospitalization/Major Diagno stic Procedure: * Medications: T akingDesmopressin Acetate 0.2 MG Oral Tablet ORAL , Notes to Pharmacist: desmopressin acetate 0.2 MG Oral TabletOriginal Medicationdesmopressin acetate 0.2 MG Oral Tablet *Reorder from [employer] for eRx and Interaction Alerts*alprazolam 0.25 MG Oral Tablet [Xanax] ORAL , Notes to Pharmacist: alprazolam 0.25 MG Oral Tablet [Xanax]Original Medicationalprazolam 0.25 MG Oral Tablet [Xanax] *Reorder from [facility] for eRx and Interaction Alerts*amoxicillin 200 MG Chewable Tablet ORAL , Notes to Pharmacist: amoxicillin 200 MG Chewable TabletOriginal Medicationamoxicillin 200 MG Chewable Tablet *Reorder from [facility] for eRx and Interaction Alerts*aspirin 162 MG Delayed Release Oral Tablet ORAL , Notes to Pharmacist: aspirin 162 MG Delayed Release Oral TabletOriginal Medicationaspirin 162 MG Delayed Release Oral Tablet *Reorder from [facility] for eRx and Interaction Alerts*esomeprazole 40 MG Delayed Release Oral Capsule [Nexium] ORAL , Notes to Pharmacist: esomeprazole 40 MG Delayed Release Oral Capsule [Nexium]Original Medicationesomeprazole 40 MG Delayed Release Oral Capsule [Nexium] *Reorder from [facility] for eRx and Interaction Alerts*silver sulfadiazine 10 MG/ML Topical Cream [SSD] CUTANEOUS , Notes to Pharmacist: silver sulfadiazine 10 MG/ML Topical Cream [SSD]Original Medicationsilver sulfadiazine 10 MG/ML Topical Cream [SSD] *Reorder from [facility] for eRx and Interaction Alerts*Medication List reviewed and reconciled with the patientTaking Desmopressin Acetate 0.2 MG Oral Tablet ORAL , Notes to Pharmacist: desmopressin acetate 0.2 MG Oral TabletOriginal Medicationdesmopressin acetate 0.2 MG Oral Tablet *Reorder from [facility] for eRx and Interaction Alerts*Taking alprazolam 0.25 MG Oral Tablet [Xanax] ORAL , Notes to Pharmacist: alprazolam 0.25 MG Oral Tablet [Xanax]Original Medicationalprazolam 0.25 MG Oral Tablet [Xanax] *Reorder from [facility] for eRx and Interaction Alerts*Taking amoxicillin 200 MG Chewable Tablet ORAL , Notes to Pharmacist: amoxicillin 200 MG Chewable TabletOriginal Medicationamoxicillin 200 MG Chewable Tablet *Reorder from [facility] for eRx and Interaction Alerts*Taking aspirin 162 MG Delayed Release Oral Tablet ORAL , Notes to Pharmacist: aspirin 162 MG Delayed Release Oral TabletOriginal Medicationaspirin 162 MG Delayed Release Oral Tablet *Reorder from [facility] for eRx and Interaction Alerts*Taking esomeprazole 40 MG Delayed Release Oral Capsule [Nexium] ORAL , Notes to Pharmacist: esomeprazole 40 MG Delayed Release Oral Capsule [Nexium]Original Medicationesomeprazole 40 MG Delayed Release Oral Capsule [Nexium] *Reorder from [employer] for eRx and Interaction Alerts*Taking silver sulfadiazine 10 MG/ML Topical Cream [SSD] CUTANEOUS , Notes to Pharmacist: silver sulfadiazine 10 MG/ML Topical Cream [SSD]Original Medicationsilver sulfadiazine 10 MG/ML Topical Cream [SSD] *Reorder from [employer] for eRx and Interaction Alerts*Medication List reviewed and reconciled with the patient * Allergies: I odine: Allergy - Onset Date 09/17/2012no[Allergies Verified] Objective: * Vitals: * Examination: P hysical Examination: General appearance: A lert, pleasant, well-nourished and in no acute distress. D ermatologic: Skin findings: S kin is thin, atrophic and lacking pedal hair. Hypertrophic / hyperkeratotic lesion: p lantar aspect of the left and right 3rd metatarsal head and distal aspect of the right 3rd toe. Nail pathology: N ails 1, 2, 3, 4, and 5 bilateral are elongated, thick, discolored, and dystrophic with subungual debris. They are painful to palpation. ? V ascular: Dorsalis pedis pulse: 1 /4 b ilateral. Posterior tibial pulse: 0 /4 bilateral. Capillary refill: g reater than 3 seconds. Edema: N o edema bilateral. N eurologic: Gross sensation G rossly intact to light touch. There is negative Tinel's sign. M usculoskeletal: Muscle Strength M uscle strength is 5/5 in regards to dorsiflexion, plantarflexion, inversion, and eversion in bilateral lower extremities. ? Assessment: * Assessment: 1. T inea unguium - B35.1 (Primary) 2 . P ain in right foot - M79.671 ? 3 . P ain in left foot - M79.672 4 . A therosclerosis of [place] tribe arteries of extremities with intermittent claudication, bilateral legs - I70.213 5 . Acquired keratosis [keratoderma] palmaris et plantaris - L85.1 Plan: * Treatment: 2. A cquired keratosis [keratoderma] palmaris et plantaris Notes: A total of 3 corns or calluses, as described in the note above, were cut and pared utilizing a #15 blade * Procedure Codes: 1 1056 TRIM SKIN LESIONS, 2 TO 4, Modifiers: Q8 95018 DEBRIDE NAIL, 6 OR MORE, Modifiers: 59 , Q8 * Follow Up: 1 0 - 12 weeks (Reason: At-Risk Foot care, sooner if problems develop.) * Billing Information: * Visit Code: * Procedure Codes: 29736 TRIM SKIN LESIONS, 2 TO 4. Modifiers: Q8 15517 DEBRIDE NAIL, 6 OR MORE. Modifiers: 59, Q8 * OPRACTIC PRACTICE MANAGER Sign off status: Completed true * Provider: Rosalie Ferreira DPM Date: 0 10/13/2024 Generated for Patrick garay/Stephanie/Carlos Manuel on: 0 11/22/2024 08:20 AM CHIROPRACTIC PRACTICE MANAGER History and Physical Notes * HPI (History [...] Date last seen by Dr. Espinoza was 09/2024., Initials [facility] Examination Category Sub-Category Detail Notes Category Not es Dermatologic Skin findings: Skin is thin, at rophic and lacking pedal hair Nail pathology: Nails 1, 2, 3, 4, an d 5 bilateral are elongated, thick, discolored, and dystrophic with subungual debris. They are painful to palpation Hypertrophic / hyperkeratotic lesion: pl james aspect of the left and right 3rd metatarsal head and distal aspect of the right 3rd toe Neurologic Gross sensation Grossly intact t o light touch. There is negative Tinel's sign Vascular Dorsalis pedis pulse: 1/4 bilateral Edema: No edema bilateral Capillary refill: greater than 3 secon ds Posterior tibial pulse: 0/4 bilateral Physical Examination General appearance: Alert, pleasant, well-nourished and in no acute distress Musculoskeletal Muscle Strength Muscle strength is 5/5 in regards to dorsiflexion, plantarflexion, inversion, and eversion in bilateral lower extremities
--- OUTSIDE RECORDS SUMMARY | 2024-11-22 08:20 | XMS_ITS | CONTINUITY OF CARE DOCUMENT ---
Author Name yohana muller Address Unknown Organization [facility] Office Address [address] [place] [address] Phone [phone] Care Team Providers Care Bulldogger Name Role Phone Delmer SAUCEDA, Carolyn Unavailable MITCHELL DUTTA MD Unavailable MITCHELL DUTTA MD Unavailable [phone] INSURANCE PROVIDERS Payer name Policy type / Coverage type [place] red alliance party ID [place] [employer] Medicare [id number] [facility] Medicine in Practice insurance [employer] [id number]
--- OUTSIDE RECORDS SUMMARY | 2024-11-22 08:20 | XMS_ITS ---
Care Plan - [facility] Created on: November 22, 2024 KANG JACOB Thalia : 1940 Sex: Female Author Organization [facility] Address [address] [place] [address] Phone Care Team Providers Care Transition Social Worker Name Role Phone Unavailable Unavailable Unavailable
[2024-11-22 08:21] LABS: Add Urine Microscopic? NO; Appearance Urine Clear (Clear); Bilirubin Urine Negative (Negative); Blood Urine Trace-intact (Negative); Color Urine Light Yellow (Yellow); Glucose Urine UA Negative (Negative); Ketones Urine Negative (Negative); Leukocyte Esterase Ur Negative LEU/UL (Negative); Nitrate Urine Negative (Negative); Protein Urine Negative (Negative); Specific Grav Ur 1.015 (1.010-1.020); Urobilinogen Urine 0.2 mg/dL (0.2-1.0)
[2024-11-22 09:15] LABS: Alanine Aminotransferase 43 U/L (14-59); Albumin Level 3.8 g/dL (3.4-5.0); Alkaline Phosphatase 99 U/L (46-116); Anion Gap 7 mmol/L (4-12); Aspartate Amino Transferase 24 U/L (15-37); Bilirubin,Total 0.6 mg/dL (0.00-1.00); Blood Urea Nitrogen 18 mg/dL (7-18); Calcium 9.3 mg/dL (8.5-10.1); Carbon Dioxide 33 mmol/L (21-32); Chloride 104 mmol/L (98-108); Cholesterol 272 mg/dL (0-200); Creatine Kinase 40 U/L (26-192); Estimated Glomerular Filt Rate 57; Free T4 Free Thyroxine 0.85 ng/dL (0.76-1.46); Glucose 97 mg/dL (70-99); HDL Direct 66 mg/dL (40-60); LDL Cholesterol Calculated 175 mg/dL (<130); Osmolality Calculated 299 mOsm/kg (285-295); Potassium 4.6 mmol/L (3.5-5.1); Sodium 144 mmol/L (136-145); Total Protein 6.8 g/dL (6.4-8.2); Triglycerides 154 mg/dL (0-150)
[2024-11-22 10:01] LABS: Thyroid Stimulating Hormone 2.24 uIU/mL (0.36-3.74); Vitamin B12 1943 pg/mL (193-986)
[2024-11-22 10:04] LABS: Free T3 2.25 pg/mL (2.18-3.98)
[2024-11-23 12:18] LABS: Vitamin D 25 Hydroxy 34 ng/mL (30-100)
== END 2024-11-22 08:03 | disposition home or self-care (01) ==
LOC: CHSLAB 08:05
PROVIDERS: PCP Internal Medicine; Visit Provider Internal Medicine
DX: I10 Essential (primary) hypertension (principal); E78.2 Mixed hyperlipidemia; E53.8 Deficiency of other specified B group vitamins; M81.0 Age-related osteoporosis without current pathological fracture; E03.4 Atrophy of thyroid (acquired); N39.0 Urinary tract infection, site not specified
CPT/HCPCS: 36415; 80053; 80061; 81003; 82306; 82550; 82607; 84439; 84443; 84481; 85027

== ENCOUNTER 2025-01-30 09:52 | Outpatient (CLI) | payer MEDICARE, OTHER, SELFPAY ==
[2025-01-30 10:00] VITALS: BMI 27.7
[2025-01-30 10:03] VITALS: BP 124/70; PULSE 74; RESP 14; TEMP 36.6; O2SAT 97
[2025-01-30] MEDS: DENOSUMAB 60 MG/ML SYRINGE SUB-Q (10:11)
--- NOTE | 2025-01-30 10:16 | PC.NURSE ---
Patient here for Prolia injection. Education given. All questions addressed successfully. Injection administered. SEE MAR/patient care notes. Tolerated well.
--- OUTSIDE RECORDS SUMMARY | 2025-01-30 10:38 | XMS_ITS | CONTINUITY OF CARE DOCUMENT ---
Author Name yohana muller Address Unknown Organization [facility] Office Address [address] [place] [address] Phone [phone] Care Team Providers Care Chip Tester Name Role Phone Delmer SAUCEDA, Carolyn Unavailable [phone] MITCHELL DUTTA MD Unavailable MITCHELL DUTTA MD Unavailable [phone] INSURANCE PROVIDERS Payer name Policy type / Coverage type [place] red green party ID [place] MED[employer] Medicare [id number] [facility] [employer] insurance [employer] [id number]
--- OUTSIDE RECORDS SUMMARY | 2025-01-30 10:39 | XMS_ITS ---
Author Organization [facility] Address [address] [place], [place] [address] Care Team Providers Care Kiln Feeder Name Role Phone RobertoRIN andrade Unavailable [phone] Liliam Zurita Unavailable Unavailable SCOTT NUNEZ Unavailable [phone] Allergies Allergen (clinical drug ingredient) Drug/Non Drug Allergy documented on EMR Reaction Allergy Type Onset Date Status Iodine Unknown Drug Allergy 09/17/2012 active REASON FOR VISIT *General care Medications Medication SIG (Take, Route, Frequency, Duration) Notes Start Date End Date Status alprazolam 0.25 MG Oral Tablet [Xanax] ORAL alprazolam 0.25 MG Oral Tablet [Xanax]Original Medicationalprazolam 0.25 MG Oral Tablet [Xanax] *Reorder from [employer] for eRx and Interaction Alerts* 09/17/2012 Active Desmopressin Acetate 0.2 MG Oral Tablet ORAL desmopressin acetate 0.2 MG Oral TabletOriginal Medicationdesmopressin acetate 0.2 MG Oral Tablet *Reorder from [employer] for eRx and Interaction Alerts* 09/17/2012 Active silver sulfadiazine 10 MG/ML Topical Cream [SSD] CUTANEOUS silver sulfadiazine 10 MG/ML Topical Cream [SSD]Original Medicationsilver sulfadiazine 10 MG/ML Topical Cream [SSD] *Reorder from [employer] for eRx and Interaction Alerts* 09/17/2012 Active aspirin 162 MG Delayed Release Oral Tablet ORAL aspirin 162 MG Delayed Release Oral TabletOriginal Medicationaspirin 162 MG Delayed Release Oral Tablet *Reorder from [employer] for eRx and Interaction Alerts* 09/17/2012 Active esomeprazole 40 MG Delayed Release Oral Capsule [Nexium] ORAL esomeprazole 40 MG Delayed Release Oral Capsule [Nexium]Original Medicationesomeprazole 40 MG Delayed Release Oral Capsule [Nexium] *Reorder from [facility] for eRx and Interaction Alerts* 09/17/2012 Active amoxicillin 200 MG Chewable Tablet ORAL amoxicillin 200 MG Chewable TabletOriginal Medicationamoxicillin 200 MG Chewable Tablet *Reorder from [facility] for eRx and Interaction Alerts* 09/17/2012 Active Encounters Encounter Location Date Provider Diagnosis [address] [id number] 08/11/2024 SCOTT MAYRA Other hammer toe(s) (acquired), right foot M20.41 ; Tinea unguium B35.1 ; Other hammer toe(s) (acquired), left foot M20.42 ; Pain in right toe(s) M79.674 ; Pain in left toe(s) M79.675 ; Unspecified atherosclerosis of [place] arteries of extremities, bilateral legs I70.203 and [...] (ICD-10 - M79.675) 08/11/2024 Unspecified atherosclerosis of [place] arteries of extremities, bilateral legs (ICD-10 - [...] OTC and prescription treatments. Unspecified atherosclerosis of [place] arteries of extremities, bilateral legs Patient educated [...] Details Follow Up: 3 Months, Reason: Provider Name:YOUSUF SHANKS, 02/16/2025 11:40:00 AM, [address] [place] [address], [phone], Progress Notes * JACOB KAPADIA ADOB: [birth year] (83 yo F)Acc No.[id number]:08/11/2024 Patient: AJCOB HUERTA Provider: Paty NUNEZ :1940 A ge:83 Y S ex:Female Date:08/11/2024 Address:[address] [place], [place] [id number] Subjective: * Chief Complaints: * 1 . [...] seen by Dr. zurita was 07/2024., Initials [facility]. * ROS: G eneral / Constitutional: Patient denies w eakness. R espiratory: Patient denies c hronic cough, shortness of breath, sputum production. C ardiovascular: Patient denies c hest pain, history of AK, irregular heartbeat. M usculoskeletal: Patient complains of [...] acetate 0.2 MG Oral Tablet *Reorder from [facility] for eRx and Interaction Alerts*, Taking alprazolam 0.25 MG Oral Tablet [Xanax] ORAL , Notes to Pharmacist: alprazolam 0.25 MG Oral Tablet [Xanax]Original Medicationalprazolam 0.25 MG Oral Tablet [Xanax] *[facility] and Interaction Alert[facility]*, Taking amoxicillin 200 MG Chewable Tablet ORAL , Notes to Pharmacist: amoxicillin 200 MG Chewable TabletOriginal Medicationamoxicillin 200 MG Chewable Tablet *Reorder from [facility] for eRx and Interaction Alerts*, Taking aspirin 162 MG Delayed Release Oral Tablet ORAL , Notes to Pharmacist: aspirin 162 MG Delayed Release Oral TabletOriginal Medicationaspirin 162 MG Delayed Release Oral Tablet *[facility]*, Taking esomeprazole 40 MG Delayed Release Oral Capsule [Nexium] ORAL , Notes to Pharmacist: esomeprazole 40 MG Delayed Release Oral Capsule [Nexium]Original Medicationesomeprazole 40 MG Delayed Release Oral Capsule [Nexium] *[facility] Interaction Alert[facility]*, Taking silver sulfadiazine 10 MG/ML Topical Cream [SSD] CUTANEOUS , Notes to Pharmacist: silver sulfadiazine 10 MG/ML Topical Cream [SSD]Original Medicationsilver sulfadiazine 10 MG/ML Topical Cream [SSD] *Reorder from [facility] for eRx and Interaction Alerts* * [...] M79.675 6 . U nspecified atherosclerosis of [place] arteries of extremities, bilateral legs - I70.203 [...] were emphasized. 3. U nspecified atherosclerosis of [place] arteries of extremities, bilateral legs Notes: Patient [...] LESIONS, 2 TO 4, Modifiers: Q8 , 93332 DEBRIDE NAIL, 6 OR MORE, Modifiers: 59 , Q8 * Follow Up: 3 Months * Billing Information: * Visit Code: * Procedure Codes: 68543 TRIM SKIN LESIONS, 2 TO 4. Modifiers: Q8 38323 DEBRIDE NAIL, 6 OR MORE. Modifiers: 59, Q8 * ECTOR PACKER GLASS CONTAINER Sign off status: Completed true * Provider: Paty NUNEZ Date: 10/11/2023 Generated for Patrick garay/Stephanie/Carlos Manuel on: 0 01/30/2025 10:39 AM CDT History and Physical Notes * HPI (History [...]
--- OUTSIDE RECORDS SUMMARY | 2025-01-30 10:39 | XMS_ITS ---
Author Organization [facility] Address [address] [place], [place] [id number] Care Team Providers Care Patient Financial Counselor Name Role Phone RobertoRIN andrade Unavailable [phone] Liliam Espinoza Unavailable Unavailable ANDREW FERREIRA Unavailable [phone] Allergies Allergen (clinical drug ingredient) Drug/Non Drug [...] Duration) Notes Start Date End Date Status Desmopressin Acetate 0.2 MG Oral Tablet ORAL desmopressin acetate 0.2 MG Oral TabletOriginal Medicationdesmopressin acetate 0.2 MG Oral Tablet *Reorder from [facility] for eRx and Interaction Alerts* 09/17/2012 Active silver sulfadiazine 10 MG/ML Topical Cream [SSD] CUTANEOUS silver sulfadiazine 10 MG/ML Topical Cream [SSD]Original Medicationsilver sulfadiazine 10 MG/ML Topical Cream [SSD] *Reorder from [facility] for eRx and Interaction Alerts* 09/17/2012 Active amoxicillin 200 MG Chewable Tablet ORAL amoxicillin 200 MG Chewable TabletOriginal Medicationamoxicillin 200 MG Chewable Tablet *Reorder from [facility] for eRx and Interaction Alerts* 09/17/2012 Active aspirin 162 MG Delayed Release Oral Tablet ORAL aspirin 162 MG Delayed Release Oral TabletOriginal Medicationaspirin 162 MG Delayed Release Oral Tablet *Reorder from [facility] for eRx and Interaction Alerts* 09/17/2012 Active esomeprazole 40 MG Delayed Release Oral Capsule [Nexium] ORAL esomeprazole 40 MG Delayed Release Oral Capsule [Nexium]Original Medicationesomeprazole 40 MG Delayed Release Oral Capsule [Nexium] *[facility] for [facility] and Interaction Alerts* 09/17/2012 Active alprazolam 0.25 MG Oral Tablet [Xanax] ORAL alprazolam 0.25 MG Oral Tablet [Xanax]Original Medicationalprazolam 0.25 MG Oral Tablet [Xanax] *[facility] for [facility]Rx and Interaction Alerts* 09/17/2012 Active Encounters Encounter Location Date Provider Diagnosis [address] [id number] 12/15/2024 ANDREW FERREIRA Tinea unguium B35.1 ; Pain in right foot M79.671 ; Pain in left foot M79.672 ; Atherosclerosis of [place] arteries of extremities with intermittent claudication, bilateral legs I70.213 and Acquired keratosis [keratoderma] palmaris et plantaris L85.1 Assessments Encounter Date Diagnosis (ICD Code) Assessment Notes Treatment Notes Treatment Clinical Notes Section Notes 12/15/2024 Tinea unguium (ICD-10 - B35.1) Nails 1-5 Bilateral were debrided extensively with nail nippers and emery board, reducing length and girth to pink healthy tissue with any subungual debris and necrotic tissue removed 12/15/2024 Pain in right foot (ICD-10 - M79.671) 12/15/2024 Pain in left foot (ICD-10 - M79.672) 12/15/2024 Atherosclerosis of [place] arteries of extremities with intermittent claudication, bilateral legs (ICD-10 - I70.213) 12/15/2024 Acquired keratosis [keratoderma] palmaris et plantaris (ICD-10 [...] Foot care, sooner if problems develop. Provider Name:YOUSUF Segovia ANDREW SHANKS, 02/16/2025 11:40:00 AM, [address] [place] [address], [phone], Progress Notes * JACOB KAPADIA ADOB: [birth year] (84 yo F)Acc No.[id number]:12/15/2024 Patient: JACOB HUERTA Provider: Rosalie Ferreira DPM :1940 A ge:84 Y S ex:Female Date:12/15/2024 Address:[address] [place], [place] [id number] Subjective: * Chief Complaints: * 1 . Patient presents for at-risk foot care . The patient has painful toenails and calluses that are causing difficulty with ambulation and shoegear. The onset is gradual. * HPI: H PI: General care P at[place]ton presents to the office for at risk foot care. Patient states that their nails are thickened, elongated and painful. Patient states that it is aggravated by shoe gear. Onset is gradual. Patient denies being diabetic., Patient denies taking blood thinners., Date last seen by Dr. Espinoza was 11/2024., Initials [facility]. * Medical History: * Medications: T aking Desmopressin Acetate 0.2 MG Oral Tablet ORAL , Notes to Pharmacist: desmopressin acetate 0.2 MG Oral TabletOriginal Medicationdesmopressin acetate 0.2 MG Oral Tablet *Reorder from [facility] for eRx and Interaction Alerts*, Taking alprazolam 0.25 MG Oral Tablet [Xanax] ORAL , Notes to Pharmacist: alprazolam 0.25 MG Oral Tablet [Xanax]Original Medicationalprazolam 0.25 MG Oral Tablet [Xanax] *Reorder from [facility] for eRx and Interaction Alerts*, Taking amoxicillin 200 MG Chewable Tablet ORAL , Notes to Pharmacist: amoxicillin 200 MG Chewable TabletOriginal Medicationamoxicillin 200 MG Chewable Tablet *Reorder from [facility] for eRx and Interaction Alerts*, Taking aspirin 162 MG Delayed Release Oral Tablet ORAL , Notes to Pharmacist: aspirin 162 MG Delayed Release Oral TabletOriginal Medicationaspirin 162 MG Delayed Release Oral Tablet *Reorder from [facility] for eRx and Interaction Alerts*, Taking esomeprazole 40 MG Delayed Release Oral Capsule [Nexium] ORAL , Notes to Pharmacist: esomeprazole 40 MG Delayed Release Oral Capsule [Nexium]Original Medicationesomeprazole 40 MG Delayed Release Oral Capsule [Nexium] *Reorder from [facility] for eRx and Interaction Alerts*, Taking silver sulfadiazine 10 MG/ML Topical Cream [SSD] CUTANEOUS , Notes to Pharmacist: silver sulfadiazine 10 MG/ML Topical Cream [SSD]Original Medicationsilver sulfadiazine 10 MG/ML Topical Cream [SSD] *Reorder from [facility] for eRx and Interaction Alerts*, Medication List reviewed and reconciled with the patient * Allergies: I odine: Allergy - Onset Date 09/17/2012. Objective: * Vitals: * Examination: P hysical Examination: General appearance: A lert, pleasant, well-nourished and in no acute distress. D ermatologic: Skin findings: S kin is thin, atrophic and lacking pedal hair. Hypertrophic / hyperkeratotic lesion: p lantar aspect of the right 2nd and 4th metatarsal heads and plantar aspect of the right 3rd digit. Nail pathology: N ails 1, 2, 3, [...] extremities. ? Assessment: * Assessment: 1. T ryan vyas - B35.1 (Primary) 2 . P ain in right foot - M79.671 ? 3 . P ain in left foot - M79.672 4 . A therosclerosis of [place] arteries of extremities with intermittent claudication, bilateral [...] LESIONS, 2 TO 4, Modifiers: Q8 , [address]41 DEBRIDE NAIL, 6 OR MORE, Modifiers: 59 , Q8 * Follow Up: 1 0 - 12 weeks (Reason: At-Risk Foot care, sooner if problems develop.) * Billing Information: * Visit Code: * Procedure Codes: 41908 TRIM SKIN LESIONS, 2 TO 4. Modifiers: Q8 71741 DEBRIDE NAIL, 6 OR MORE. Modifiers: 59, Q8 * Electronic signature of ANDREW FERREIRA DPM on 01/30/2025 at 10:38 AM CDT Sign off status: Pending * Provider: Rosalie Ferreira DPM Date: 0 12/15/2024 Generated for Patrick Guerrier/Carlos Manuel on: 0 01/30/2025 10:38 AM CDT History and Physical Notes * [...] Date last seen by Dr. Espinoza was 11/2024., Initials [facility] Examination Category Sub-Category Detail Notes Category Not es Dermatologic Skin findings: Skin is thin, at rophic and lacking pedal hair Nail pathology: Nails 1, 2, 3, 4, an d 5 bilateral are elongated, thick, discolored, and dystrophic with subungual debris. They are painful to palpation Hypertrophic / hyperkeratotic lesion: pl james aspect of the right 2nd and 4th metatarsal heads and plantar aspect of the right 3rd digit Neurologic Gross sensation Grossly intact t o [...]
--- OUTSIDE RECORDS SUMMARY | 2025-01-30 10:39 | XMS_ITS | Clinical Summary ---
Author Organization [facility] Address [address] [place] [address] Care Team Providers Care Mixer Runner Name Role Phone Liliam Espinoza MD Primary Care Provider [phone] Allergies Active Allergy Reactions Criticality Noted Date [...] 2) 1989 Annual Medicare Wellness Visit 2004 RSV Immunization or 60+ Years (1 - 1-dose 75+ series) 2014 Pneumococcal Vaccine: 50+ Years (2 of 2 - PPSV23) 05/01/2017 05/01/2016 COVID-19 Vaccine ( season) 2024 07/11/2022, 10/01/2021, 12/28/2020, Additional history exists DTaP, Tdap and Td [...] age to complete this topic Insurance MEDICARE [employer]UAL[employer] MEDICARE [facility] Care Teams Mixer Runner Relationship Specialty Start Date End Date Liliam Espinoza MD [address] [place] [phone] PCP - General INTERNAL MEDICINE 05/04/24
--- OUTSIDE RECORDS SUMMARY | 2025-01-30 10:39 | XMS_ITS ---
Author Organization [facility] Address [address] [place], [place] [phone] Care Team Providers Care Roof Slater Name Role Phone RobertoRIN andrade Unavailable [phone] Liliam Espinoza Unavailable Unavailable ANDREW FERREIRA Unavailable [phone] Allergies Allergen (clinical drug ingredient) Drug/Non Drug [...] 0.25 MG Oral Tablet [Xanax] *Reorder from [facility] for eRx and Interaction Alerts* 09/17/2012 Active aspirin 162 MG Delayed Release Oral Tablet ORAL aspirin 162 MG Delayed Release Oral TabletOriginal Medicationaspirin 162 MG Delayed Release Oral Tablet *Reorder from [facility] for eRx and Interaction Alerts* 09/17/2012 Active amoxicillin 200 MG Chewable Tablet ORAL amoxicillin 200 MG Chewable TabletOriginal Medicationamoxicillin 200 MG Chewable Tablet *Reorder from [facility] for eRx and Interaction Alerts* 09/17/2012 Active silver sulfadiazine 10 MG/ML Topical Cream [SSD] CUTANEOUS silver sulfadiazine 10 MG/ML Topical Cream [SSD]Original Medicationsilver sulfadiazine 10 MG/ML Topical Cream [SSD] *Reorder from [facility] for eRx and Interaction Alerts* 09/17/2012 Active esomeprazole 40 MG Delayed Release Oral Capsule [Nexium] ORAL esomeprazole 40 MG Delayed Release Oral Capsule [Nexium]Original Medicationesomeprazole 40 MG Delayed Release Oral Capsule [Nexium] *Reorder from [facility] for eRx and Interaction Alerts* 09/17/2012 Active Desmopressin Acetate 0.2 MG Oral Tablet ORAL desmopressin acetate 0.2 MG Oral TabletOriginal Medicationdesmopressin acetate 0.2 MG Oral Tablet *Reorder from [facility] for eRx and Interaction Alerts* 09/17/2012 Active Encounters Encounter Location Date Provider Diagnosis [address] [place], [place] [id number] 10/13/2024 ANDREW FERREIRA Tinea unguium B35.1 ; Pain in right foot M79.671 ; Pain in left foot M79.672 ; Atherosclerosis of [place] arteries of extremities with intermittent claudication, bilateral [...] foot (ICD-10 - M79.672) 10/13/2024 Atherosclerosis of [place] arteries of extremities with intermittent claudication, bilateral [...] care, sooner if problems develop. Provider Name:YOUSUF SHANKS, 02/16/2025 11:40:00 AM, [address] [place] [address], [phone], Progress Notes * JACOB KAPADIA ADOB: [birth year] (83 yo F)Acc No.[id number]:10/13/2024 Patient: JACOB HUERTA Provider: Rosalie Ferreira DPM :1940 A ge:83 Y S ex:Female Date:10/13/2024 Address:[address] [place], [place] [id number] Subjective: * Chief Complaints: * Brian humphries [...] seen by Dr. Espinoza [facility] 09[facility]2024., [facility] * Medical History: * Surgical History: * Hospitalization/Major Diagno stic Procedure: * Medications: T akingDesmopressin Acetate 0.2 MG Oral Tablet ORAL , Notes to Pharmacist: desmopressin acetate 0.2 MG Oral TabletOriginal Medicationdesmopressin acetate 0.2 MG Oral Tablet *Reorder from [facility] for eRx and Interaction Alerts*alprazolam 0.25 MG Oral Tablet [Xanax] ORAL , Notes to Pharmacist: alprazolam 0.25 MG Oral Tablet [Xanax]Original Medicationalprazolam 0.25 MG Oral Tablet [Xanax] *Reorder from [facility] for eRx and Interaction Alerts*amoxicillin 200 MG Chewable Tablet ORAL , Notes to Pharmacist: amoxicillin 200 MG Chewable TabletOriginal Medicationamoxicillin 200 MG Chewable Tablet *Reorder from [facility] for eRx and Interaction Alerts*aspirin 162 MG Delayed Release Oral Tablet ORAL , Notes to Pharmacist: aspirin 162 MG Delayed Release Oral TabletOriginal Medicationaspirin 162 MG Delayed Release Oral Tablet *Reorder from [facility] for eRx and Interaction Alerts*esomeprazole 40 MG Delayed Release Oral Capsule [Nexium] ORAL , Notes to Pharmacist: esomeprazole 40 MG Delayed Release Oral Capsule [Nexium]Original Medicationesomeprazole 40 MG Delayed Release Oral Capsule [Nexium] *Reorder from [facility] for eRx and Interaction Alerts*silver sulfadiazine 10 MG/ML Topical Cream [SSD] CUTANEOUS , Notes to Pharmacist: silver sulfadiazine 10 MG/ML Topical Cream [SSD]Original Medicationsilver sulfadiazine 10 MG/ML Topical Cream [SSD] *Reorder from [facility] for eRx and Interaction Alerts*Medication List reviewed and reconciled with the patientTaking Desmopressin Acetate 0.2 MG Oral Tablet ORAL , Notes to Pharmacist: desmopressin acetate 0.2 MG Oral TabletOriginal Medicationdesmopressin acetate 0.2 MG Oral Tablet *Reorder from [facility] for eRx and Interaction Alerts*Taking alprazolam 0.25 MG Oral Tablet [Xanax] ORAL , Notes to Pharmacist: alprazolam 0.25 MG Oral Tablet [Xanax]Original Medicationalprazolam 0.25 MG Oral Tablet [Xanax] *Reorder from [facility] for eRx and Interaction Alerts*Taking amoxicillin 200 MG Chewable Tablet ORAL , Notes to Pharmacist: amoxicillin 200 MG Chewable TabletOriginal Medicationamoxicillin 200 MG Chewable Tablet *Reorder from [facility] for eRx and Interaction Alerts*Taking aspirin 162 MG Delayed Release Oral Tablet ORAL , Notes to Pharmacist: aspirin 162 MG Delayed Release Oral TabletOriginal Medicationaspirin 162 MG Delayed Release Oral Tablet *Reorder from [facility] for eRx and Interaction Alerts*Taking esomeprazole 40 MG Delayed Release Oral Capsule [Nexium] ORAL , Notes to Pharmacist: esomeprazole 40 MG Delayed Release Oral Capsule [Nexium]Original Medicationesomeprazole 40 MG Delayed Release Oral Capsule [Nexium] *Reorder from [facility] for eRx and Interaction Alerts*Taking silver sulfadiazine 10 MG/ML Topical Cream [SSD] CUTANEOUS , Notes to Pharmacist: silver sulfadiazine 10 MG/ML Topical Cream [SSD]Original Medicationsilver sulfadiazine 10 MG/ML Topical Cream [SSD] *Reorder from [facility] for eRx and Interaction Alerts*Medication List reviewed [...] - M79.672 4 . A therosclerosis of [place] arteries of extremities with intermittent claudication, bilateral [...] SKIN LESIONS, 2 TO 4, Modifiers: Q8 84069 DEBRIDE NAIL, 6 OR MORE, Modifiers: 59 , Q8 * Follow Up: 1 0 - 12 weeks (Reason: At-Risk Foot care, sooner if problems develop.) * Billing Information: * Visit Code: * Procedure Codes: 31146 TRIM SKIN LESIONS, 2 TO 4. Modifiers: Q8 93284 DEBRIDE NAIL, 6 OR MORE. Modifiers: 59, Q8 * R D MANAGER Sign off status: Completed true * Provider: Rosalie Ferreira DPM Date: 0 10/13/2024 Generated for Patrick garay/Stephanie/Carlos Manuel on: 0 01/30/2025 10:38 AM CDT [...]
--- OUTSIDE RECORDS SUMMARY | 2025-01-30 10:39 | XMS_ITS | Encounter Summary ---
Author Organization [facility] Address [facility] [place] [address] Care Team Providers Care Depilatory Painter Name Role Phone Liliam Espinoza MD Primary Care Provider [phone] Encounter Details Date Type Department Care Team (Late st Contact Info) Description 05/04/2024 Hospital Orders Only [facility] [address] [place] [address] Alexandria Calixto MD [address] [place], [place] [phone] Social History Tobacco Use Types Packs/Day Years [...] on filedocumented in this encounter Care Teams Depilatory Painter Relationship Specialty Start Date End Date Liliam Espinoza MD [address] [place] [address] PCP - General INTERNAL MEDICINE 05/04/24 documented as of this encounter
== END 2025-01-30 09:53 | disposition home or self-care (01) ==
PROVIDERS: PCP Internal Medicine; Visit Provider Internal Medicine
DX: M81.0 Age-related osteoporosis without current pathological fracture (principal)
CPT/HCPCS: 96372; J0897

== ENCOUNTER 2025-03-27 07:57 | Outpatient (CLI) | payer MEDICARE, OTHER, SELFPAY ==
[2025-03-27 09:10] LABS: Cholesterol 290 mg/dL (0-200); HDL Direct 53 mg/dL; LDL Cholesterol Calculated 191 mg/dL (<130); Triglycerides 232 mg/dL (<150)
== END 2025-03-27 07:58 | disposition home or self-care (01) ==
LOC: CHSLAB 07:58
PROVIDERS: PCP Internal Medicine; Visit Provider Internal Medicine
DX: E78.2 Mixed hyperlipidemia (principal)
CPT/HCPCS: 36415; 80061

== ENCOUNTER 2025-05-30 07:45 | Outpatient (CLI) | payer MEDICARE, SELFPAY ==
--- OUTSIDE RECORDS SUMMARY | 2025-02-16 06:40 | XMS_ITS ---
Author Organization [facility] Address [address] [place], [place] [address] Care Team Providers Care Drop Wirer Name Role Phone MahendraaliyahaliyahRIN Unavailable [phone] Liliam Espinoza Unavailable Unavailable YOUSUF SALGADO Unavailable [phone] Allergies Allergen (clinical drug ingredient) Drug/Non Drug Allergy documented on EMR Reaction Allergy Type Onset Date Status Iodine Unknown Drug Allergy 09/17/2012 active REASON FOR VISIT *General care Medications Medication SIG (Take, Route, Frequency, Duration) Notes Start Date End Date Status alprazolam 0.25 MG Oral Tablet [Xanax] ORAL alprazolam 0.25 MG Oral Tablet [Xanax]Original Medicationalprazolam 0.25 MG Oral Tablet [Xanax] *Reorder from [employer] for eRx and Interaction Alerts* 09/17/2012 Active amoxicillin 200 MG Chewable Tablet ORAL amoxicillin 200 MG Chewable TabletOriginal Medicationamoxicillin 200 MG Chewable Tablet *Reorder from [employer] for eRx and Interaction Alerts* 09/17/2012 Active aspirin 162 MG Delayed Release Oral Tablet ORAL aspirin 162 MG Delayed Release Oral TabletOriginal Medicationaspirin 162 MG Delayed Release Oral Tablet *Reorder from [employer] for eRx and Interaction Alerts* 09/17/2012 Active esomeprazole 40 MG Delayed Release Oral Capsule [Nexium] ORAL esomeprazole 40 MG Delayed Release Oral Capsule [Nexium]Original Medicationesomeprazole 40 MG Delayed Release Oral Capsule [Nexium] *Reorder from [employer] for eRx and Interaction Alerts* 09/17/2012 Active silver sulfadiazine 10 MG/ML Topical Cream [SSD] CUTANEOUS silver sulfadiazine 10 MG/ML Topical Cream [SSD]Original Medicationsilver sulfadiazine 10 MG/ML Topical Cream [SSD] *Reorder from [employer] for eRx and Interaction Alerts* 09/17/2012 Active Desmopressin Acetate 0.2 MG Oral Tablet ORAL desmopressin acetate 0.2 MG Oral TabletOriginal Medicationdesmopressin acetate 0.2 MG Oral Tablet *Reorder from [employer] for eRx and Interaction Alerts* 09/17/2012 Active Vital Signs Height 66.00 in 02/16/2025 Weight 160 lbs 02/16/2025 BMI 25.82 kg/m2 02/16/2025 Height-cm 167.64 cm 02/16/2025 Weight-kg 72.58 kg 02/16/2025 Encounters Encounter Location Date Provider Diagnosis [address] [id number] 02/16/2025 YOUSUF SALGADO Tinea unguium B35.1 ; Pain in right foot M79.671 ; Pain in left foot M79.672 ; Atherosclerosis of [place] arteries of extremities with intermittent claudication, bilateral [...] foot (ICD-10 - M79.672) 02/16/2025 Atherosclerosis of [place] arteries of extremities with intermittent claudication, bilateral [...] sooner if problems develop. Provider Name:YOUSUF SHANKS, 06/22/2025 11:20:00 AM, [address] [place] [address], [id number], Progress Notes * JACOB KAPADIA ADOB: [birth year] (84 yo F)Acc No.[id number]:02/16/2025 Patient: JACOB HUERTA Provider: Lenard SALGADO :1940 A ge:84 Y S ex:Female Date:02/16/2025 Address:[address] [place], [place] [id number] Subjective: * Chief Complaints: * 1 . [...] seen by Dr. Espinoza was 12/2024., Initials [facility]. * ROS: G eneral / Constitutional: Patient denies w eakness. M usculoskeletal: Patient complains of j oint pain, hammertoes. ? P eripheral Vascular: Patient denies b lanching of skin, cold extremities, decreased sensation in extremities. S kin: Patient complains of f ungal nails, discoloration, nail changes, calluses and corns. N eurologic: Patient denies d izziness, gait abnormality, headache. * Medical History: * Family History: F ather: PRN - Father: :: Cancer,,known absent . M other: PRN - Mother: :: Heart Disease < 55 yrs,,known absent . S ister: SIB - Sister: . * Social History: M igrated Social History: M igrated Social History: Smoking Status : Never smoked , History of tobacco use :. * Medications: T aking Desmopressin Acetate 0.2 MG Oral Tablet ORAL , Notes to Pharmacist: desmopressin acetate 0.2 MG Oral TabletOriginal Medicationdesmopressin acetate 0.2 MG Oral Tablet *Reorder from [facility] for eRx and Interaction Alerts*, Taking alprazolam 0.25 MG Oral Tablet [Xanax] ORAL , Notes to Pharmacist: alprazolam 0.25 MG Oral Tablet [Xanax]Original Medicationalprazolam 0.25 MG Oral Tablet [Xanax] *Reorder from [facility] for eRx and Interaction Alerts*, Taking amoxicillin 200 MG Chewable Tablet ORAL , Notes to Pharmacist: amoxicillin 200 MG Chewable TabletOriginal Medicationamoxicillin 200 MG Chewable Tablet *Reorder from [facility] for eRx and Interaction Alerts*, Taking aspirin 162 MG Delayed Release Oral Tablet ORAL , Notes to Pharmacist: aspirin 162 MG Delayed Release Oral TabletOriginal Medicationaspirin 162 MG Delayed Release Oral Tablet *Reorder from [facility] for eRx and Interaction Alerts*, Taking esomeprazole 40 MG Delayed Release Oral Capsule [Nexium] ORAL , Notes to Pharmacist: esomeprazole 40 MG Delayed Release Oral Capsule [Nexium]Original Medicationesomeprazole 40 MG Delayed Release Oral Capsule [Nexium] *Reorder from [facility] for eRx and Interaction Alerts*, Taking silver sulfadiazine 10 MG/ML Topical Cream [SSD] CUTANEOUS , Notes to Pharmacist: silver sulfadiazine 10 MG/ML Topical Cream [SSD]Original Medicationsilver sulfadiazine 10 MG/ML Topical Cream [SSD] *Reorder from [facility] for eRx and Interaction Alerts*, Medication List reviewed and reconciled with the patient * Allergies: I odine: Allergy - Onset Date 09/17/2012. Objective: * Vitals: W t: 160 lbs, [...] - M79.672 4 . A therosclerosis of [place] arteries of extremities with intermittent claudication, bilateral [...] LESIONS, 2 TO 4, Modifiers: Q8 , 71669 DEBRIDE NAIL, 6 OR MORE, Modifiers: 59 , Q8 * Follow Up: 1 0 - 12 weeks (Reason: At-Risk Foot care, sooner if problems develop.) * Billing Information: * Visit Code: * Procedure Codes: 09642 TRIM SKIN LESIONS, 2 TO 4. Modifiers: Q8 30886 DEBRIDE NAIL, 6 OR MORE. Modifiers: 59, Q8 * Electronic signature of DAMON SALGADO DPM on 05/30/2025 at 07:54 AM CDT Sign off status: Pending * Provider: Lenard SALGADO Date: 0 02/16/2025 Generated for Patrick garay/Stephanie/Carlos Manuel on: 0 05/30/2025 07:54 AM CDT History and Physical Notes * [...]
--- OUTSIDE RECORDS SUMMARY | 2025-04-20 06:10 | XMS_ITS ---
Author Organization [facility] Address [address] [place], [place] [address] Care Team Providers Care Director Of Field Service Name Role Phone RobertoRIN andrade Unavailable [phone] Liliam Espinoza Unavailable Unavailable YOUSUF SALGADO Unavailable [phone] Allergies Allergen (clinical drug ingredient) Drug/Non Drug [...] 10 MG/ML Topical Cream [SSD] *Reorder from [facility] for eRx and Interaction Alerts* 09/17/2012 Active esomeprazole 40 MG Delayed Release Oral Capsule [Nexium] ORAL esomeprazole 40 MG Delayed Release Oral Capsule [Nexium]Original Medicationesomeprazole 40 MG Delayed Release Oral Capsule [Nexium] *Reorder from [facility] for eRx and Interaction Alerts* 09/17/2012 Active aspirin 162 MG Delayed Release Oral Tablet ORAL aspirin 162 MG Delayed Release Oral TabletOriginal Medicationaspirin 162 MG Delayed Release Oral Tablet *Reorder from [facility] for eRx and Interaction Alerts* 09/17/2012 Active amoxicillin 200 MG Chewable Tablet ORAL amoxicillin 200 MG Chewable TabletOriginal Medicationamoxicillin 200 MG Chewable Tablet *Reorder from [facility] for eRx and Interaction Alerts* 09/17/2012 Active alprazolam 0.25 MG Oral Tablet [Xanax] ORAL alprazolam 0.25 MG Oral Tablet [Xanax]Original Medicationalprazolam 0.25 MG Oral Tablet [Xanax] *Reorder from [facility] for eRx and Interaction Alerts* 09/17/2012 Active Desmopressin Acetate 0.2 MG Oral Tablet ORAL desmopressin acetate 0.2 MG Oral TabletOriginal Medicationdesmopressin acetate 0.2 MG Oral Tablet *Reorder from [facility] for eRx and Interaction Alerts* 09/17/2012 Active Vital Signs Height 66.00 in 04/20/2025 Weight 160 lbs 04/20/2025 BMI 25.82 kg/m2 04/20/2025 Height-cm 167.64 cm 04/20/2025 Weight-kg 72.58 kg 04/20/2025 Encounters Encounter Location Date Provider Diagnosis [address] [id number] 04/20/2025 YOUSUF SALGADO Tinea unguium B35.1 ; Pain in right foot M79.671 ; Pain in left foot M79.672 ; Atherosclerosis of [place] arteries of extremities with intermittent claudication, bilateral [...] foot (ICD-10 - M79.672) 04/20/2025 Atherosclerosis of [place] arteries of extremities with intermittent claudication, bilateral [...] develop. Provider Name:YOUSUF SHANKS, 06/22/2025 11:20:00 AM, [address] [place] [address], [phone], Progress Notes * JACOB KAPADIA ADOB: [birth year] (84 yo F)Acc No.[id number]:04/20/2025 Patient: JACOB HUERTA Provider: Lenard SALGADO :1940 A ge:84 Y S ex:Female Date:04/20/2025 Address:[address] [place], [place] [id number] Subjective: * Chief Complaints: * 1 . [...] izziness, gait abnormality, headache. * Medical History: N o Reported Medical History.Medical History Verified. * Surgical History: D enies Past Surgical History. * Hospitalization/Major Diagno stic Procedure: D enies Past Hospitalization. * Family History: F ather: PRN - [...] acetate 0.2 MG Oral Tablet *Reorder from [facility] for eRx and Interaction Alerts*, Taking alprazolam 0.25 MG Oral Tablet [Xanax] ORAL , Notes to Pharmacist: alprazolam 0.25 MG Oral Tablet [Xanax]Original Medicationalprazolam 0.25 MG Oral Tablet [Xanax] *Reorder from [facility] for eRx and Interaction Alerts*, Taking amoxicillin 200 MG Chewable Tablet ORAL , Notes to Pharmacist: amoxicillin 200 MG Chewable TabletOriginal Medicationamoxicillin 200 MG Chewable Tablet *Reorder from [facility] for eRx and Interaction Alerts*, Taking aspirin 162 MG Delayed Release Oral Tablet ORAL , Notes to Pharmacist: aspirin 162 MG Delayed Release Oral TabletOriginal Medicationaspirin 162 MG Delayed Release Oral Tablet *[facility] and Interaction Alerts*, Taking esomeprazole 40 MG Delayed Release Oral Capsule [Nexium] ORAL , Notes to Pharmacist: esomeprazole 40 MG Delayed Release Oral Capsule [Nexium]Original Medicationesomeprazole 40 MG Delayed Release Oral Capsule [Nexium] *Reorder from [facility] for eRx and Interaction Alerts*, Taking silver sulfadiazine 10 MG/ML Topical Cream [SSD] CUTANEOUS , Notes to Pharmacist: silver sulfadiazine 10 MG/ML Topical Cream [SSD]Original Medicationsilver sulfadiazine 10 MG/ML Topical Cream [SSD] *Reorder from [facility] for eRx and Interaction Alerts*, Medication List [...] - M79.672 4 . A therosclerosis of [place] arteries of extremities with intermittent claudication, bilateral [...] LESIONS, 2 TO 4, Modifiers: Q8 , 17114 DEBRIDE NAIL, 6 OR MORE, Modifiers: 59 , Q8 * Follow Up: 1 0 - 12 weeks (Reason: At-Risk Foot care, sooner if problems develop.) * Billing Information: * Visit Code: * Procedure Codes: 21855 TRIM SKIN LESIONS, 2 TO 4. Modifiers: Q8 91710 DEBRIDE NAIL, 6 OR MORE. Modifiers: 59, Q8 * Electronic signature of DAMON SALGADO , DPM on 05/30/2025 at 07:54 AM CDT Sign off status: Pending * Provider: Lenard SALGADO Date: 0 04/20/2025 Generated for Patrick garay/Stephanie/Carlos Manuel on: 0 [...]
--- OUTSIDE RECORDS SUMMARY | 2025-05-30 07:54 | XMS_ITS | Patient Health Record ---
Author Organization [facility] Address [address] [place], [place] [address] Care Team Providers Care Tank Storage Supervisor Name Role Phone RIN John Unavailable [phone] Liliam Espinoza Unavailable Unavailable EDIEOdilia ANDREW Unavailable [phone] SCOTT NUNEZ Unavailable [phone] YOUSUF SALGADO Unavailable [phone] Allergies Allergen (clinical drug ingredient) Drug/Non Drug [...] 10 MG/ML Topical Cream [SSD] *Reorder from [facility] for eRx and Interaction Alerts* 09/17/2012 Active esomeprazole 40 MG Delayed Release Oral Capsule [Nexium] ORAL esomeprazole 40 MG Delayed Release Oral Capsule [Nexium]Original Medicationesomeprazole 40 MG Delayed Release Oral Capsule [Nexium] *Reorder from [facility] for eRx and Interaction Alerts* 09/17/2012 Active aspirin 162 MG Delayed Release Oral Tablet ORAL aspirin 162 MG Delayed Release Oral TabletOriginal Medicationaspirin 162 MG Delayed Release Oral Tablet *Reorder from [facility] for eRx and Interaction Alerts* 09/17/2012 Active amoxicillin 200 MG Chewable Tablet ORAL amoxicillin 200 MG Chewable TabletOriginal Medicationamoxicillin 200 MG Chewable Tablet *Reorder from [facility] for eRx and Interaction Alerts* 09/17/2012 Active alprazolam 0.25 MG Oral Tablet [Xanax] ORAL alprazolam 0.25 MG Oral Tablet [Xanax]Original Medicationalprazolam 0.25 MG Oral Tablet [Xanax] *Reorder from [facility] for eRx and Interaction Alerts* 09/17/2012 Active Desmopressin Acetate 0.2 MG Oral Tablet ORAL desmopressin acetate 0.2 MG Oral TabletOriginal Medicationdesmopressin acetate 0.2 MG Oral Tablet *Reorder from [facility] for eRx and Interaction Alerts* 09/17/2012 Active Immunizations Vaccine Route Administration Date Status Comme nts Influenza, high dose seasonal Unknown 07/24/2023 Admini stered Vital Signs Height-cm 167.64 cm 04/20/2025 Weight-kg 72.58 kg 04/20/2025 Height 66.00 in 04/20/2025 Weight 160 lbs 04/20/2025 BMI 25.82 kg/m2 04/20/2025 Encounters Encounter Location Date Provider Diagnosis [address] [id number] 02/16/2025 YOUSUF SALGADO Tinea unguium B35.1 ; Pain in right foot M79.671 ; Pain in left foot M79.672 ; Atherosclerosis of [place] arteries of extremities with intermittent claudication, bilateral legs I70.213 and Acquired keratosis [keratoderma] palmaris et plantaris L85.[address] [id number] 04/20/2025 YOUSUF SALGADO Tinea unguium B35.1 ; Pain in right foot M79.671 ; Pain in left foot M79.672 ; Atherosclerosis of [place] arteries of extremities with intermittent claudication, bilateral legs I70.213 and Acquired keratosis [keratoderma] palmaris et plantaris L85.[address] [id number] 06/09/2024 SCOTT NUNEZ Other hammer toe(s) (acquired), right foot M20.41 ; Tinea unguium B35.1 ; Other hammer toe(s) (acquired), left foot M20.42 ; Pain in right toe(s) M79.674 ; Pain in left toe(s) M79.675 ; Unspecified atherosclerosis of [place] arteries of extremities, bilateral legs I70.203 and Acquired keratosis [keratoderma] palmaris et plantaris L85.[address] [id number] 08/11/2024 SCOTT NUNEZ Other hammer toe(s) (acquired), right foot M20.41 ; Tinea unguium B35.1 ; Other hammer toe(s) (acquired), left foot M20.42 ; Pain in right toe(s) M79.674 ; Pain in left toe(s) M79.675 ; Unspecified atherosclerosis of [place] arteries of extremities, bilateral legs I70.203 and Acquired keratosis [keratoderma] palmaris et plantaris L85.1 [facility] [address] [place], [place] [id number] 10/13/2024 ANDREW SNOOK Tinea unguium B35.1 ; Pain in right foot M79.671 ; Pain in left foot M79.672 ; Atherosclerosis of [place] arteries of extremities with intermittent claudication, bilateral legs I70.213 and Acquired keratosis [keratoderma] palmaris et plantaris L85.[address] [id number] 12/15/2024 ANDREW SNOOK Tinea unguium B35.1 ; Pain in right foot M79.671 ; Pain in left foot M79.672 ; Atherosclerosis of [place] arteries of extremities with intermittent claudication, bilateral [...] in right foot (ICD-10 - M79.671) 12/15/2024 Tinea unguium (ICD-10 - B35.1) Nails 1-5 Bilateral were debrided extensively with nail nippers and emery board, reducing length and girth to pink healthy tissue with any subungual debris and necrotic tissue removed 12/15/2024 Pain in right foot (ICD-10 - M79.671) 02/16/2025 Tinea unguium (ICD-10 - B35.1) Nails 1-5 Bilateral were debrided extensively with nail nippers and emery board, reducing length and girth to pink healthy tissue with any subungual debris and necrotic tissue removed 02/16/2025 Pain in right foot (ICD-10 - M79.671) 04/20/2025 Tinea unguium (ICD-10 - B35.1) Nails 1-5 Bilateral were debrided extensively with nail nippers and emery board, reducing length and girth to pink healthy tissue with any subungual debris and necrotic tissue removed 04/20/2025 Pain in right foot (ICD-10 - M79.671) 04/20/2025 Pain in left foot (ICD-10 - M79.672) 02/16/2025 Pain in left foot (ICD-10 - M79.672) 12/15/2024 Pain in left foot (ICD-10 - M79.672) 10/13/2024 Pain in left foot (ICD-10 - M79.672) 08/11/2024 Other hammer toe(s) (acquired), left foot (ICD-10 - M20.42) 06/09/2024 Other hammer toe(s) (acquired), left foot (ICD-10 - M20.42) 06/09/2024 Pain in right toe(s) (ICD-10 - M79.674) 08/11/2024 Pain in right toe(s) (ICD-10 - M79.674) 10/13/2024 Atherosclerosis of [place] arteries of extremities with intermittent claudication, bilateral legs (ICD-10 - I70.213) 12/15/2024 Atherosclerosis of [place] arteries of extremities with intermittent claudication, bilateral legs (ICD-10 - I70.213) 02/16/2025 Atherosclerosis of [place] arteries of extremities with intermittent claudication, bilateral legs (ICD-10 - I70.213) 04/20/2025 Atherosclerosis of [place] arteries of extremities with intermittent claudication, bilateral legs (ICD-10 - I70.213) 04/20/2025 Acquired keratosis [keratoderma] palmaris et plantaris (ICD-10 - L85.1) A total of 3 corns or calluses, as described in the note above, were cut and pared utilizing a #15 blade 02/16/2025 Acquired keratosis [keratoderma] palmaris et plantaris (ICD-10 - L85.1) A total of 3 corns or calluses, as described in the note above, were cut and pared utilizing a #15 blade 12/15/2024 Acquired keratosis [keratoderma] palmaris et plantaris (ICD-10 - L85.1) A total of 3 corns or calluses, as described in the note above, were cut and pared utilizing a #15 blade 10/13/2024 Acquired keratosis [keratoderma] palmaris et plantaris (ICD-10 - L85.1) A total of 3 corns or calluses, as described in the note above, were cut and pared utilizing a #15 blade 08/11/2024 Pain in left toe(s) (ICD-10 - M79.675) 06/09/2024 Pain in left toe(s) (ICD-10 - M79.675) 08/11/2024 Unspecified atherosclerosis of [place] arteries of extremities, bilateral legs (ICD-10 - I70.203) Patient educated on risks and aggravating factors of PVD, including conservative treatment options such as a diet and exercise regimen to aid in slowing progression of vascular disease 06/09/2024 Unspecified atherosclerosis of [place] arteries of extremities, bilateral legs (ICD-10 - [...] Plan Of Treatment Next Appt Details Provider Name:YOUSUF SHANKS, 06/22/2025 11:20:00 AM, [address] [place] [address], [id number], Insurance Providers Payer Name Payer Address Payer Phone Subscriber Number Group Number Insured Name Patient Relationship to Insured Coverage Start Date Coverage End Date Medicare Part B [place] [address] [place] [phone] [id number] JACOB KAPADIA Self - patient is the insured [facility] [address] [address] [place]ENIRUBEN QUINONEZ [phone] [id number] JACOB KAPADIA Self - patient is the insured
--- OUTSIDE RECORDS SUMMARY | 2025-05-30 07:54 | XMS_ITS | Clinical Summary ---
Author Organization [facility] Address [address] [place] [address] Care Team Providers Care Editorial Cartoonist Name Role Phone Liliam Espinoza MD Primary Care Provider [phone] Allergies Active Allergy Reactions Criticality Noted Date [...] PPSV23) 05/01/2017 05/01/2016 COVID-19 Vaccine ( season) 2025 07/11/2022, 10/01/2021, 12/28/2020, Additional history exists DTaP, [...] Insurance MEDICARE [employer] CASUALTY MEDICARE [facility] Care Teams Editorial Cartoonist Relationship Specialty Start Date End Date Liliam Espinoza MD [address] [place] [phone] PCP - General INTERNAL MEDICINE 05/04/24
--- OUTSIDE RECORDS SUMMARY | 2025-05-30 07:54 | XMS_ITS | Encounter Summary ---
Author Organization [facility] Address [facility] [place] [address] Care Team Providers Care Coin Teller Name Role Phone Liliam Espinoza MD Primary Care Provider [phone] Encounter Details Date Type Department Care Team (Late st Contact Info) Description 05/04/2024 Hospital Orders Only [facility] [address] [place] [address] Alexandria Calixto MD [address] [place], [place] [id number] Social History Tobacco Use Types Packs/Day Years [...] on filedocumented in this encounter Care Teams Coin Teller Relationship Specialty Start Date End Date Liliam Espinoza MD [address] [place] [address] PCP - General INTERNAL MEDICINE 05/04/24 documented as of this encounter
[2025-05-30 08:01] LABS: Hematocrit 45.5 % (35.0-42.0); Hemoglobin 14.2 g/dL (11.7-13.8); Mean Corpuscular HGB Conc 31.2 g/dL (32-36); Mean Corpuscular Hemoglobin 30.3 pg (27.0-31.0); Mean Corpuscular Volume 97.2 fL (78.0-102.0); Platelet Count Result 254 K/mm3 (150-420); Red Blood Count 4.68 M/mm3 (4.20-5.40); White Blood Count 6.1 K/mm3 (4.8-10.8)
[2025-05-30 08:02] LABS: Add Urine Microscopic? YES; Appearance Urine Clear (Clear); Glucose Urine UA Negative (Negative); Leukocyte Esterase Ur 1+ (Negative); Nitrate Urine Negative (Negative); Specific Grav Ur <= 1.005 (1.010-1.020)
[2025-05-30 08:39] LABS: Alanine Aminotransferase 21 U/L (6-35); Albumin Level 4.6 g/dL (3.5-5.1); Alkaline Phosphatase 68 U/L (38-126); Anion Gap 7 mmol/L (4-12); Aspartate Amino Transferase 35 U/L (14-36); Bilirubin,Total 0.8 mg/dL (0.2-1.3); Blood Urea Nitrogen 13 mg/dL (7-17); Calcium 9.8 mg/dL (8.4-10.2); Carbon Dioxide 31 mmol/L (22-30); Chloride 105 mmol/L (98-107); Estimated Glomerular Filt Rate > 60; Glucose 101 mg/dL (65-110); Osmolality Calculated 296 mOsm/kg (285-295); Potassium 4.9 mmol/L (3.4-5.0); Sodium 143 mmol/L (137-145); Total Protein 7.0 g/dL (6.3-8.2)
[2025-05-30 08:56] LABS: Free T3 3.76 pg/mL (2.18-3.98); Free T4 Free Thyroxine 0.97 ng/dL (0.78-2.19)
[2025-05-30 09:09] LABS: Thyroid Stimulating Hormone 3.860 uIU/mL (0.465-4.680)
== END 2025-05-30 07:46 | disposition home or self-care (01) ==
LOC: CHSLAB 07:51
PROVIDERS: PCP Internal Medicine; Visit Provider Internal Medicine
DX: I10 Essential (primary) hypertension (principal); E53.8 Deficiency of other specified B group vitamins; E78.2 Mixed hyperlipidemia; R31.29 Other microscopic hematuria; M81.0 Age-related osteoporosis without current pathological fracture; E03.4 Atrophy of thyroid (acquired)
CPT/HCPCS: 36415; 80053; 81001; 82306; 84439; 84443; 84481; 85027

== ENCOUNTER 2025-07-18 10:29 | Outpatient (CLI) | payer MEDICARE, SELFPAY ==
--- OUTSIDE RECORDS SUMMARY | 2025-02-16 06:40 | XMS_ITS ---
Author Organization [facility] Address [address] [place], [place] [address] Care Team Providers Care Canal Equipment Maintenance Supervisor Name Role Phone MahendraaliyahaliyahRIN Unavailable [phone] Liliam Espinoza Unavailable Unavailable YOUSUF SALGADO Unavailable [phone] Allergies Allergen (clinical drug ingredient) Drug/Non Drug Allergy documented on EMR Reaction Allergy Type Onset Date Status Iodine Unknown Drug Allergy 09/17/2012 active REASON FOR VISIT *General care Medications Medication SIG (Take, Route, Frequency, Duration) Notes Start Date End Date Status alprazolam 0.25 MG Oral Tablet [Xanax] ORAL alprazolam 0.25 MG Oral Tablet [Xanax]Original Medicationalprazolam 0.25 MG Oral Tablet [Xanax] *Reorder from [employer] for eRx and Interaction Alerts* 09/17/2012 Active amoxicillin 200 MG Chewable Tablet ORAL amoxicillin 200 MG Chewable TabletOriginal Medicationamoxicillin 200 MG Chewable Tablet *Reorder from [employer] for eRx and Interaction Alerts* 09/17/2012 Active aspirin 162 MG Delayed Release Oral Tablet ORAL aspirin 162 MG Delayed Release Oral TabletOriginal Medicationaspirin 162 MG Delayed Release Oral Tablet *Reorder from [employer] for eRx and Interaction Alerts* 09/17/2012 Active esomeprazole 40 MG Delayed Release Oral Capsule [Nexium] ORAL esomeprazole 40 MG Delayed Release Oral Capsule [Nexium]Original Medicationesomeprazole 40 MG Delayed Release Oral Capsule [Nexium] *Reorder from [employer] for eRx and Interaction Alerts* 09/17/2012 Active silver sulfadiazine 10 MG/ML Topical Cream [SSD] CUTANEOUS silver sulfadiazine 10 MG/ML Topical Cream [SSD]Original Medicationsilver sulfadiazine 10 MG/ML Topical Cream [SSD] *Reorder from [employer] for eRx and Interaction Alerts* 09/17/2012 Active Desmopressin Acetate 0.2 MG Oral Tablet ORAL desmopressin acetate 0.2 MG Oral TabletOriginal Medicationdesmopressin acetate 0.2 MG Oral Tablet *Reorder from [employer] for eRx and Interaction Alerts* 09/17/2012 Active Vital Signs Weight 160 lbs 02/16/2025 Weight-kg 72.58 kg 02/16/2025 Height 66.00 in 02/16/2025 Height-cm 167.64 cm 02/16/2025 BMI 25.82 kg/m2 02/16/2025 Encounters Encounter Location Date Provider Diagnosis [address] [id number] 02/16/2025 YOUUSF SALGADO Tinea unguium B35.1 ; Pain in right foot M79.671 ; Pain in left foot M79.672 ; Atherosclerosis of [place] arteries of extremities with intermittent claudication, bilateral [...] foot (ICD-10 - M79.672) 02/16/2025 Atherosclerosis of [place] arteries of extremities with intermittent claudication, bilateral [...] sooner if problems develop. Provider Name:YOUSUF SHANKS, 08/31/2025 09:10:00 AM, [address] [place] [address], [id number], Progress Notes * JACOB KAPADIA ADOB: [birth year] (84 yo F)Acc No.[id number]:02/16/2025 Patient: JACOB HUERTA Provider: Lenard SALGADO :1940 A ge:84 Y S ex:Female Date:02/16/2025 Address:[address] [place], [place] [phone] Subjective: * Chief Complaints: * 1 . [...] seen by Dr. Espinoza was 12/2024., Initials [facility]. * ROS: G eneral / Constitutional: [...] acetate 0.2 MG Oral Tablet *Reorder from [facility] for eRx and Interaction Alerts*, Taking alprazolam 0.25 MG Oral Tablet [Xanax] ORAL , Notes to Pharmacist: alprazolam 0.25 MG Oral Tablet [Xanax]Original Medicationalprazolam 0.25 MG Oral Tablet [Xanax] *Reorder from [facility] for eRx and Interaction Alerts*, Taking amoxicillin 200 MG Chewable Tablet ORAL , Notes to Pharmacist: amoxicillin 200 MG Chewable TabletOriginal Medicationamoxicillin 200 MG Chewable Tablet *Reorder from [facility] for eRx and Interaction Alerts*, Taking aspirin 162 MG Delayed Release Oral Tablet ORAL , Notes to Pharmacist: aspirin 162 MG Delayed Release Oral TabletOriginal Medicationaspirin 162 MG Delayed Release Oral Tablet *Reorder from [facility] for eRx and Interaction Alerts*, Taking esomeprazole 40 MG Delayed Release Oral Capsule [Nexium] ORAL , Notes to Pharmacist: esomeprazole 40 MG Delayed Release Oral Capsule [Nexium]Original Medicationesomeprazole 40 MG Delayed Release Oral Capsule [Nexium] *Reorder from [facility] for eRx and Interaction Alerts*, Taking silver sulfadiazine 10 MG/ML Topical Cream [SSD] CUTANEOUS , Notes to Pharmacist: silver sulfadiazine 10 MG/ML Topical Cream [SSD]Original Medicationsilver sulfadiazine 10 MG/ML Topical Cream [SSD] *Reorder from [facility] for eRx and Interaction Alerts*, Medication [...] - M79.672 4 . A therosclerosis of [place] arteries of extremities with intermittent claudication, bilateral [...] LESIONS, 2 TO 4, Modifiers: Q8 , 07241 DEBRIDE NAIL, 6 OR MORE, Modifiers: 59 , Q8 * Follow Up: 1 0 - 12 weeks (Reason: At-Risk Foot care, sooner if problems develop.) * Billing Information: * Visit Code: * Procedure Codes: 06733 TRIM SKIN LESIONS, 2 TO 4. Modifiers: Q8 15683 DEBRIDE NAIL, 6 OR MORE. Modifiers: 59, Q8 * Electronic signature of DAMON SALGADO DPM on 07/18/2025 at 12:52 PM CDT Sign off status: Pending * Provider: Lenard SALGADO Date: 0 02/16/2025 Generated for Patrick garay/Stephanie/Carlos Manuel on: 1 12:52 PM CDT History and Physical Notes * HPI [...]
--- OUTSIDE RECORDS SUMMARY | 2025-04-20 06:10 | XMS_ITS ---
Author Organization [facility] Address [address] [place], [place] [address] Care Team Providers Care Web Graphic Designer Name Role Phone RobertoRIN andrade Unavailable [phone] Liliam Espinoza Unavailable Unavailable YOUSUF SALGADO Unavailable [phone] Allergies Allergen (clinical drug ingredient) Drug/Non Drug [...] 10 MG/ML Topical Cream [SSD] *Reorder from [employer] for eRx and Interaction Alerts* 09/17/2012 Active esomeprazole 40 MG Delayed Release Oral Capsule [Nexium] ORAL esomeprazole 40 MG Delayed Release Oral Capsule [Nexium]Original Medicationesomeprazole 40 MG Delayed Release Oral Capsule [Nexium] *Reorder from [facility] for eRx and Interaction Alerts* 09/17/2012 Active aspirin 162 MG Delayed Release Oral Tablet ORAL aspirin 162 MG Delayed Release Oral TabletOriginal Medicationaspirin 162 MG Delayed Release Oral Tablet *Reorder from [facility] for eRx and Interaction Alerts* 09/17/2012 Active amoxicillin 200 MG Chewable Tablet ORAL amoxicillin 200 MG Chewable TabletOriginal Medicationamoxicillin 200 MG Chewable Tablet *Reorder from [facility] for eRx and Interaction Alerts* 09/17/2012 Active alprazolam 0.25 MG Oral Tablet [Xanax] ORAL alprazolam 0.25 MG Oral Tablet [Xanax]Original Medicationalprazolam 0.25 MG Oral Tablet [Xanax] *Reorder from [facility] for eRx and Interaction Alerts* 09/17/2012 Active Desmopressin Acetate 0.2 MG Oral Tablet ORAL desmopressin acetate 0.2 MG Oral TabletOriginal Medicationdesmopressin acetate 0.2 MG Oral Tablet *Reorder from [facility] for eRx and Interaction Alerts* 09/17/2012 Active Vital Signs Height 66.00 in 04/20/2025 Weight 160 lbs 04/20/2025 BMI 25.82 kg/m2 04/20/2025 Height-cm 167.64 cm 04/20/2025 Weight-kg 72.58 kg 04/20/2025 Encounters Encounter Location Date Provider Diagnosis [address] [id number] 04/20/2025 YOUSUF SALGADO Tinea unguium B35.1 ; Pain in right foot M79.671 ; Pain in left foot M79.672 ; Atherosclerosis of [place] arteries of extremities with intermittent claudication, bilateral [...] foot (ICD-10 - M79.672) 04/20/2025 Atherosclerosis of [place] arteries of extremities with intermittent claudication, bilateral [...] develop. Provider Name:YOUSUF SHANKS, 08/31/2025 09:10:00 AM, [address] [place] [address], [id number], Progress Notes * JACOB KAPADIA ADOB: [birth year] (84 yo F)Acc No.[id number]:04/20/2025 Patient: JACOB HUERTA Provider: Lenard SALGADO :1940 A ge:84 Y S ex:Female Date:04/20/2025 Address:[address] [place], [place] [id number] Subjective: * Chief Complaints: * 1 . [...] acetate 0.2 MG Oral Tablet *Reorder from [facility] for eRx and Interaction Alerts*, Taking alprazolam 0.25 MG Oral Tablet [Xanax] ORAL , Notes to Pharmacist: alprazolam 0.25 MG Oral Tablet [Xanax]Original Medicationalprazolam 0.25 MG Oral Tablet [Xanax] *Reorder from [facility] for eRx and Interaction Alerts*, Taking amoxicillin 200 MG Chewable Tablet ORAL , Notes to Pharmacist: amoxicillin 200 MG Chewable TabletOriginal Medicationamoxicillin 200 MG Chewable Tablet *Reorder from [facility] for eRx and Interaction Alerts*, Taking aspirin 162 MG Delayed Release Oral Tablet ORAL , Notes to Pharmacist: aspirin 162 MG Delayed Release Oral TabletOriginal Medicationaspirin 162 MG Delayed Release Oral Tablet *[facility] and Interaction Alert[facility]*, Taking esomeprazole 40 MG Delayed Release Oral Capsule [Nexium] ORAL , Notes to Pharmacist: esomeprazole 40 MG Delayed Release Oral Capsule [Nexium]Original Medicationesomeprazole 40 MG Delayed Release Oral Capsule [Nexium] *Reorder from [facility] for eRx and Interaction Alerts*, Taking silver sulfadiazine 10 MG/ML Topical Cream [SSD] CUTANEOUS , Notes to Pharmacist: silver sulfadiazine 10 MG/ML Topical Cream [SSD]Original Medicationsilver sulfadiazine 10 MG/ML Topical Cream [SSD] *Reorder from [facility] for eRx and Interaction Alerts*, Medication List [...] - M79.672 4 . A therosclerosis of [place] arteries of extremities with intermittent claudication, bilateral [...] LESIONS, 2 TO 4, Modifiers: Q8 , 92415 DEBRIDE NAIL, 6 OR MORE, Modifiers: 59 , Q8 * Follow Up: 1 0 - 12 weeks (Reason: At-Risk Foot care, sooner if problems develop.) * Billing Information: * Visit Code: * Procedure Codes: 07192 TRIM SKIN LESIONS, 2 TO 4. Modifiers: Q8 79882 DEBRIDE NAIL, 6 OR MORE. Modifiers: 59, Q8 * Electronic signature of DAMON SALGADO , DPM on 07/18/2025 at 12:51 PM CDT Sign off status: Pending * Provider: Lenard SALGADO Date: 0 04/20/2025 Generated for Patrick garay/Stephanie/Carlos Manuel on: 1 12:51 PM CDT History and Physical Notes * [...]
--- OUTSIDE RECORDS SUMMARY | 2025-06-22 06:20 | XMS_ITS ---
Author Organization [facility] Address [address] [place], [place] [address] Care Team Providers Care Assurance Services Manager Health Care Name Role Phone DoraRIN Unavailable [phone] Liliam Espinoza Unavailable Unavailable YOUSUF SALGADO Unavailable [phone] Allergies Allergen (clinical drug ingredient) Drug/Non Drug Allergy documented on EMR Reaction Allergy Type Onset Date Status Iodine Unknown Drug Allergy 09/17/2012 active REASON FOR VISIT *General care Medications Medication SIG (Take, Route, Frequency, Duration) Notes Start Date End Date Status Desmopressin Acetate 0.2 MG Oral Tablet ORAL desmopressin acetate 0.2 MG Oral TabletOriginal Medicationdesmopressin acetate 0.2 MG Oral Tablet *Reorder from [employer] for eRx and Interaction Alerts* 09/17/2012 Active alprazolam 0.25 MG Oral Tablet [Xanax] ORAL alprazolam 0.25 MG Oral Tablet [Xanax]Original Medicationalprazolam 0.25 MG Oral Tablet [Xanax] *Reorder from [employer] for eRx and Interaction Alerts* 09/17/2012 Active aspirin 162 MG Delayed Release Oral Tablet ORAL aspirin 162 MG Delayed Release Oral TabletOriginal Medicationaspirin 162 MG Delayed Release Oral Tablet *Reorder from [facility] for eRx and Interaction Alerts* 09/17/2012 Active esomeprazole 40 MG Delayed Release Oral Capsule [Nexium] ORAL esomeprazole 40 MG Delayed Release Oral Capsule [Nexium]Original Medicationesomeprazole 40 MG Delayed Release Oral Capsule [Nexium] *Reorder from [facility] for eRx and Interaction Alerts* 09/17/2012 Active silver sulfadiazine 10 MG/ML Topical Cream [SSD] CUTANEOUS silver sulfadiazine 10 MG/ML Topical Cream [SSD]Original Medicationsilver sulfadiazine 10 MG/ML Topical Cream [SSD] *Reorder from [facility] for eRx and Interaction Alerts* 09/17/2012 Active amoxicillin 200 MG Chewable Tablet ORAL amoxicillin 200 MG Chewable TabletOriginal Medicationamoxicillin 200 MG Chewable Tablet *[facility]* 09/17/2012 Active Vital Signs Weight 160 lbs 06/22/2025 Weight-kg 72.58 kg 06/22/2025 Height 66.00 in 06/22/2025 Height-cm 167.64 cm 06/22/2025 BMI 25.82 kg/m2 06/22/2025 Encounters Encounter Location Date Provider Diagnosis [address] [id number] 06/22/2025 YOUSUF SALGADO 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 ; Pain in right toe(s) M79.674 ; Pain in left toe(s) M79.675 ; Atherosclerosis of [place] arteries of extremities with intermittent claudication, bilateral legs I70.213 and Acquired keratoderma L85.1 Assessments Encounter Date Diagnosis (ICD Code) Assessment Notes Treatment Notes Treatment Clinical Notes Section Notes 06/22/2025 Fungal infection of nail (ICD-10 - B35.1) 06/22/2025 Pain in right toe(s) (ICD-10 - M79.674) 06/22/2025 Pain in left toe(s) (ICD-10 - M79.675) 06/22/2025 Atherosclerosis of [place] arteries of extremities with intermittent claudication, bilateral legs (ICD-10 - I70.213) 06/22/2025 Acquired keratoderma (ICD-10 - L85.1) Plan Of Treatment Next Appt Details Provider Name:YOUSUF SHANKS, 08/31/2025 09:10:00 AM, [address] [place] [address], [phone], Progress Notes * JACOB KAPADIA ADOB: [birth year] (84 yo F)Acc No.[id number]:06/22/2025 Patient: JACOB HUERTA Provider: Lenard SALGADO :1940 A ge:84 Y S ex:Female Date:06/22/2025 Address:[address] [place], [place] [phone] Subjective: * Chief Complaints: * 1 . [...] April 2025., Initials ab. * Medical History: M edical History Verified. * Surgical History: D enies [...] acetate 0.2 MG Oral Tablet *[facility]*, Taking alprazolam 0.25 MG Oral Tablet [Xanax] ORAL , Notes to Pharmacist: alprazolam 0.25 MG Oral Tablet [Xanax]Original Medicationalprazolam 0.25 MG Oral Tablet [Xanax] *[facility]*, Taking amoxicillin 200 MG Chewable Tablet ORAL , Notes to Pharmacist: amoxicillin 200 MG Chewable TabletOriginal Medicationamoxicillin 200 MG Chewable Tablet *[facility] Interaction Alert[facility]*, Taking aspirin 162 MG Delayed Release Oral Tablet ORAL , Notes to Pharmacist: aspirin 162 MG Delayed Release Oral TabletOriginal Medicationaspirin 162 MG Delayed Release Oral Tablet *Reorder from [employer] for eRx and Interaction Alerts*, Taking esomeprazole 40 MG Delayed Release Oral Capsule [Nexium] ORAL , Notes to Pharmacist: esomeprazole 40 MG Delayed Release Oral Capsule [Nexium]Original Medicationesomeprazole 40 MG Delayed Release Oral Capsule [Nexium] *Reorder from [facility] for eRx and Interaction Alerts*, Taking silver sulfadiazine 10 MG/ML Topical Cream [SSD] CUTANEOUS , Notes to Pharmacist: silver sulfadiazine 10 MG/ML Topical Cream [SSD]Original Medicationsilver sulfadiazine 10 MG/ML Topical Cream [SSD] *Reorder from [facility] for eRx and Interaction Alerts*, Medication [...] - M79.675 4 . A therosclerosis of [place] arteries of extremities with intermittent claudication, bilateral legs - I70.213 & #160; 5 . A cquired keratoderma - L85.1 Plan: * Treatment: * Procedure Codes: 1 1056 TRIM SKIN LESIONS, 2 TO 4, Modifiers: Q8 , 13093 DEBRIDE NAIL, 6 OR MORE, Modifiers: 59 , Q8 * Preventive Medicine: Screenings: F all risk screening F all Risk Assessment: N o falls in the past year. * Billing Information: * Visit Code: * Procedure Codes: 10021 TRIM SKIN LESIONS, 2 TO 4. Modifiers: Q8 72275 DEBRIDE NAIL, 6 OR MORE. Modifiers: 59, Q8 * Electronic signature of DAMON SALGADO DPM on 07/18/2025 at 12:51 PM CDT [...]
--- OUTSIDE RECORDS SUMMARY | 2025-07-06 06:20 | XMS_ITS ---
Author Organization [facility] Address [address] [place], [place] [id number] Care Team Providers Care Supervisor Color Making Name Role Phone DoraRIN Unavailable [phone] Liliam Espinoza Unavailable Unavailable YOUSUF SALGADO Unavailable [phone] Allergies Allergen (clinical drug ingredient) Drug/Non Drug Allergy documented on EMR Reaction Allergy Type Onset Date Status Iodine Unknown Drug Allergy 09/17/2012 active REASON FOR VISIT *Heel pain follow up Medications Medication SIG (Take, Route, Frequency, Duration) Notes Start Date End Date Status amoxicillin 200 MG Chewable Tablet ORAL amoxicillin 200 MG Chewable TabletOriginal Medicationamoxicillin 200 MG Chewable Tablet *Reorder from [facility] for eRx and Interaction Alerts* 09/17/2012 Active alprazolam 0.25 MG Oral Tablet [Xanax] ORAL alprazolam 0.25 MG Oral Tablet [Xanax]Original Medicationalprazolam 0.25 MG Oral Tablet [Xanax] *Reorder from [facility] for eRx and Interaction Alerts* 09/17/2012 Active silver sulfadiazine 10 MG/ML Topical Cream [SSD] CUTANEOUS silver sulfadiazine 10 MG/ML Topical Cream [SSD]Original Medicationsilver sulfadiazine 10 MG/ML Topical Cream [SSD] *Reorder from [facility] for eRx and Interaction Alerts* 09/17/2012 Active esomeprazole 40 MG Delayed Release Oral Capsule [Nexium] ORAL esomeprazole 40 MG Delayed Release Oral Capsule [Nexium]Original Medicationesomeprazole 40 MG Delayed Release Oral Capsule [Nexium] *Reorder from [facility] for eRx and Interaction Alerts* 09/17/2012 Active aspirin 162 MG Delayed Release Oral Tablet ORAL aspirin 162 MG Delayed Release Oral TabletOriginal Medicationaspirin 162 MG Delayed Release Oral Tablet *[facility]* 09/17/2012 Active Desmopressin Acetate 0.2 MG Oral Tablet ORAL desmopressin acetate 0.2 MG Oral TabletOriginal Medicationdesmopressin acetate 0.2 MG Oral Tablet *[facility]* 09/17/2012 Active Vital Signs Height 66.00 in 07/06/2025 Weight 160 lbs 07/06/2025 BMI 25.82 kg/m2 07/06/2025 Height-cm 167.64 cm 07/06/2025 Weight-kg 72.58 kg 07/06/2025 Encounters Encounter Location Date Provider Diagnosis [address] [id number] 07/06/2025 YOUSUF SALGADO Tinea unguium B35.1 ; Pain in right foot M79.671 ; Pain in left foot M79.672 ; Atherosclerosis of [place] arteries of extremities with intermittent claudication, bilateral legs I70.213 ; Acquired keratosis [keratoderma] palmaris et plantaris L85.1 and Plantar fascial fibromatosis M72.2 Assessments Encounter Date Diagnosis (ICD Code) Assessment Notes Treatment Notes Treatment Clinical Notes Section Notes 07/06/2025 Tinea unguium (ICD-10 - B35.1) 07/06/2025 Pain in right foot (ICD-10 - M79.671) 07/06/2025 Pain in left foot (ICD-10 - M79.672) 07/06/2025 Atherosclerosis of [place] arteries of extremities with intermittent claudication, bilateral legs (ICD-10 - I70.213) clinton Patient educated on risks and aggravating factors of PVD, including conservative treatment options such as a diet and exercise regimen to aid in slowing progression of vascular disease. Check and protect LE bilateral daily. Call if any changes or concerns. 07/06/2025 Acquired keratosis [keratoderma] palmaris et plantaris (ICD-10 - L85.1) A total of 3 corns or calluses, as described in the note above, were cut and pared utilizing a #15 blade 07/06/2025 Plantar fascial fibromatosis (ICD-10 - M72.2) Heel Pain: I discussed anti-inflammator y treatment options and various means of pronation control with the patient. I educated the patient on icing and stretching, supportive shoegear, and the use of orthotic devices. Kenalog Injection: Following skin prep, a total of 3 ccs of a 1-1-1 mix of 0.5% marcaine plain, 1% lidocaine plain, and Kenalog was injected right origin of plantar fascial band. Plan Of Treatment Treatment Notes Assessment Notes Atherosclerosis of atka ar teries of extremities with intermittent claudication, bilateral legs clinton Patient educated on risks and aggravating factors of PVD, including conservative treatment options such as a diet and exercise regimen to aid in slowing progression of vascular disease. Check and protect LE bilateral daily. Call if any changes or concerns. Acquired keratosis [keratode rma] palmaris et plantaris A total of 3 corns or calluses, as described in the note above, were cut and pared utilizing a #15 blade Plantar fascial fibromatosis Heel Pain: I discussed anti-inflammatory treatment options and various means of pronation control with the patient. I educated the patient on icing and stretching, supportive shoegear, and the use of orthotic devices. Kenalog Injection: Following skin prep, a total of 3 ccs of a 1-1-1 mix of 0.5% marcaine plain, 1% lidocaine plain, and Kenalog was injected right origin of plantar fascial band. Next Appt Details Follow Up: 10 - 12 weeks, Re ason: At-Risk Foot care, sooner if problems develop. Provider Name:YOUSUF SHANKS, 08/31/2025 09:10:00 AM, [address] [place] [address], [id number], Progress Notes * JACOB KAPADIA ADOB: [birth year] (84 yo F)Acc No.[id number]:07/06/2025 Patient: JACOB HUERTA Provider: Lenard SALGADO :1940 A ge:84 Y S ex:Female Date:07/06/2025 Address:[address] [place], [place] [id number] Subjective: * Chief Complaints: * 1 . *Heel pain follow up. * HPI: H PI: New Complaint E stablished patient presents with a new complaint., Patient complains of an issue to right heel pain, Duration of problem is 2 weeks., Patient denies any injury., MA: nd. * ROS: G eneral / Constitutional: [...] acetate 0.2 MG Oral Tablet *Reorder from [facility] for eRx and Interaction Alerts*, Taking alprazolam 0.25 MG Oral Tablet [Xanax] ORAL , Notes to Pharmacist: alprazolam 0.25 MG Oral Tablet [Xanax]Original Medicationalprazolam 0.25 MG Oral Tablet [Xanax] *Reorder from [facility] for eRx and Interaction Alerts*, Taking amoxicillin 200 MG Chewable Tablet ORAL , Notes to Pharmacist: amoxicillin 200 MG Chewable TabletOriginal Medicationamoxicillin 200 MG Chewable Tablet *Reorder from [employer] for eRx and Interaction Alerts*, Taking aspirin 162 MG Delayed Release Oral Tablet ORAL , Notes to Pharmacist: aspirin 162 MG Delayed Release Oral TabletOriginal Medicationaspirin 162 MG Delayed Release Oral Tablet *Reorder from [facility] for eRx and Interaction Alerts*, Taking esomeprazole 40 MG Delayed Release Oral Capsule [Nexium] ORAL , Notes to Pharmacist: esomeprazole 40 MG Delayed Release Oral Capsule [Nexium]Original Medicationesomeprazole 40 MG Delayed Release Oral Capsule [Nexium] *Reorder from [employer] for eRx and Interaction Alerts*, Taking silver sulfadiazine 10 MG/ML Topical Cream [SSD] CUTANEOUS , Notes to Pharmacist: silver sulfadiazine 10 MG/ML Topical Cream [SSD]Original Medicationsilver sulfadiazine 10 MG/ML Topical Cream [SSD] *Reorder from [facility] for eRx and Interaction Alerts*, Medication List [...] 3rd digit. Nail pathology: 1 st nails thick and ingrown with layers of discolored [...] inversion, and eversion in bilateral lower extremities. Plantar Fascia T here is pain on palpation to the, medial band of the right plantar fascia,near its attachment to the calcaneus. Assessment: * Assessment: 1. T inea unguium - B35.1 (Primary) 2 . P ain in right foot - M79.671 ? 3 . P ain in left foot - M79.672 4 . A therosclerosis of atka arteries of extremities with intermittent claudication, bilateral legs - I70.213 5 . Acquired keratosis [keratoderma] palmaris et plantaris - L85.1 6 . P lantar fascial fibromatosis - M72.2 Plan: * Treatment: 2. A cquired keratosis [keratoderma] palmaris et plantaris Notes: A total of 3 corns or calluses, as described in the note above, were cut and pared utilizing a #15 blade 3. P lantar fascial fibromatosis Notes: Heel Pain: I discussed anti-inflammatory treatment options and various means of pronation control with the patient. I educated the patient on icing and stretching, supportive shoegear, and the use of orthotic devices. Kenalog Injection: Following skin prep, a total of 3 ccs of a 1-1-1 mix of 0.5% marcaine plain, 1% lidocaine plain, and Kenalog was injected right origin of plantar fascial band. * Follow Up: 1 0 - 12 weeks (Reason: At-Risk Foot care, sooner if problems develop.) * Billing Information: * Visit Code: * Procedure Codes: * Electronic signature of DAMON SALGADO DPM on 07/18/2025 at 12:50 PM CDT Sign off status: Pending * Provider: Lenard SALGADO Date: Generated for Patrick garay/Stephanie/Carlos Manuel on: 12:50 PM CDT History and Physical Notes * HPI (History of Present Illness) Category Sub-Category Detail Notes Category Not es HPI New Complaint Established jimenez ent presents with a new complaint., Patient complains of an issue to right heel pain, Duration of problem is 2 weeks., Patient denies any injury., MA: nd Examination Category Sub-Category Detail Notes Category Not es Dermatologic Skin findings: Skin is thin, at rophic and lacking pedal hair Nail pathology: 1st nails thick and ingrown with layers of discolored [...] inversion, and eversion in bilateral lower extremities Plantar Fascia There is pain on pal pation to the, medial band of the right plantar fascia,near its attachment to the calcaneus
--- NOTE | ~2025-07-18 | XR_ITS ---
EXAMINATION: XR heel LT min 2V, 07/18/2025 10:40 CDT HISTORY: BILATERAL HEEL PAIN COMPARISON: No comparisons available. Findings: No acute fracture or malalignment. Large calcaneal spur. Soft tissue swelling. Impression: No acute fracture or malalignment. Reviewed, dictated and finalized at location P. Impression: No acute fracture or malalignment.
--- NOTE | ~2025-07-18 | XR_ITS ---
EXAMINATION: XR heel RT min 2V, 07/18/2025 10:40 CDT HISTORY: BILATERAL HEEL PAIN COMPARISON: No comparisons available. Findings: No acute fracture or malalignment. Large calcaneal spur. Soft tissue swelling. Impression: No acute fracture or malalignment. Reviewed, dictated and finalized at location P. Impression: No acute fracture or malalignment.
--- OUTSIDE RECORDS SUMMARY | 2025-07-18 12:51 | XMS_ITS | Patient Health Record ---
Author Organization [facility] Address [address] [place], [place] [id number] Care Team Providers Care It Field Technician Name Role Phone Dora RIN Unavailable [phone] Liliam Espinoza Unavailable Unavailable JHON ANDREW Unavailable [phone] SCOTT NUNEZ Unavailable [phone] YOUSUF SALGADO Unavailable [phone] Allergies Allergen (clinical drug ingredient) Drug/Non Drug Allergy documented on EMR Reaction Allergy Type Onset Date Status Iodine Unknown Drug Allergy 09/17/2012 active Reason For Referral No Information Medications Medication SIG (Take, Route, Frequency, Duration) Notes Start Date End Date Status amoxicillin 200 MG Chewable Tablet ORAL amoxicillin 200 MG Chewable TabletOriginal Medicationamoxicillin 200 MG Chewable Tablet *Reorder from [facility] for eRx and Interaction Alerts* 09/17/2012 Active alprazolam 0.25 MG Oral Tablet [Xanax] ORAL alprazolam 0.25 MG Oral Tablet [Xanax]Original Medicationalprazolam 0.25 MG Oral Tablet [Xanax] *Reorder from [facility] for eRx and Interaction Alerts* 09/17/2012 Active Desmopressin Acetate 0.2 MG Oral Tablet ORAL desmopressin acetate 0.2 MG Oral TabletOriginal Medicationdesmopressin acetate 0.2 MG Oral Tablet *Reorder from [facility] for eRx and Interaction Alerts* 09/17/2012 Active silver sulfadiazine 10 MG/ML Topical Cream [SSD] CUTANEOUS silver sulfadiazine 10 MG/ML Topical Cream [SSD]Original Medicationsilver sulfadiazine 10 MG/ML Topical Cream [SSD] *Reorder from [facility] for eRx and Interaction Alerts* 09/17/2012 Active esomeprazole 40 MG Delayed Release Oral Capsule [Nexium] ORAL esomeprazole 40 MG Delayed Release Oral Capsule [Nexium]Original Medicationesomeprazole 40 MG Delayed Release Oral Capsule [Nexium] *Reorder from [facility] for eRx and Interaction Alerts* 09/17/2012 Active aspirin 162 MG Delayed Release Oral Tablet ORAL aspirin 162 MG Delayed Release Oral TabletOriginal Medicationaspirin 162 MG Delayed Release Oral Tablet *Reorder from [facility] for eRx and Interaction Alerts* 09/17/2012 Active Immunizations Vaccine Route Administration Date Status Comme nts Influenza, high dose seasonal Unknown 07/24/2023 Admini stered Vital Signs Height-cm 167.64 cm 07/06/2025 Weight-kg 72.58 kg 07/06/2025 Height 66.00 in 07/06/2025 Weight 160 lbs 07/06/2025 BMI 25.82 kg/m2 07/06/2025 Encounters Encounter Location Date Provider Diagnosis [address] [id number] 02/16/2025 YOUSUF SALGADO Tinea unguium B35.1 ; Pain in right foot M79.671 ; Pain in left foot M79.672 ; Atherosclerosis of [place] arteries of extremities with intermittent claudication, bilateral legs I70.213 and Acquired keratosis [keratoderma] palmaris et plantaris L85.[address] [id number] 04/20/2025 YOUSUF SALGADO Tinea unguium B35.1 ; Pain in right foot M79.671 ; Pain in left foot M79.672 ; Atherosclerosis of [place] arteries of extremities with intermittent claudication, bilateral legs I70.213 and Acquired keratosis [keratoderma] palmaris et plantaris L85.[address] [id number] 06/22/2025 YOUSUF SALGADO 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 ; Pain in right toe(s) M79.674 ; Pain in left toe(s) M79.675 ; Atherosclerosis of [place] arteries of extremities with intermittent claudication, bilateral legs I70.213 and Acquired keratoderma L85.[address] [id number] 07/06/2025 YOUSUF SALGADO Tinea unguium B35.1 ; Pain in right foot M79.671 ; Pain in left foot M79.672 ; Atherosclerosis of [place] arteries of extremities with intermittent claudication, bilateral legs I70.213 ; Acquired keratosis [keratoderma] palmaris et plantaris L85.1 and Plantar fascial fibromatosis M72.[address] [id number] 08/11/2024 SCOTT NUNEZ Other hammer toe(s) (acquired), right foot M20.41 ; Tinea unguium B35.1 ; Other hammer toe(s) (acquired), left foot M20.42 ; Pain in right toe(s) M79.674 ; Pain in left toe(s) M79.675 ; Unspecified atherosclerosis of [place] arteries of extremities, bilateral legs I70.203 and Acquired keratosis [keratoderma] palmaris et plantaris L85.1 [facility] [address] [place], [place] [id number] 10/13/2024 ANDREW SNOOK Tinea unguium B35.1 ; Pain in right foot M79.671 ; Pain in left foot M79.672 ; Atherosclerosis of [place] arteries of extremities with intermittent claudication, bilateral legs I70.213 and Acquired keratosis [keratoderma] palmaris et plantaris L85.[address] [id number] 12/15/2024 ANDREW SNOOK Tinea unguium B35.1 ; Pain in right foot M79.671 ; Pain in left foot M79.672 ; Atherosclerosis of [place] arteries of extremities with intermittent claudication, bilateral legs I70.213 and Acquired keratosis [keratoderma] palmaris et plantaris L85.1 Assessments Encounter Date Diagnosis (ICD Code) Assessment Notes Treatment Notes Treatment Clinical Notes Section Notes 08/11/2024 Tinea unguium (ICD-10 - B35.1) Aseptic [...] Pain in right foot (ICD-10 - M79.671) 06/22/2025 Fungal infection of nail (ICD-10 - B35.1) 07/06/2025 Tinea unguium (ICD-10 - B35.1) 06/22/2025 Pain in right toe(s) (ICD-10 - M79.674) 07/06/2025 Pain in right foot (ICD-10 - M79.671) 07/06/2025 Pain in left foot (ICD-10 - M79.672) 06/22/2025 Pain in left toe(s) (ICD-10 - M79.675) 04/20/2025 Pain in left foot (ICD-10 - M79.672) 02/16/2025 Pain in left foot (ICD-10 - M79.672) 12/15/2024 Pain in left foot (ICD-10 - M79.672) 10/13/2024 Pain in left foot (ICD-10 - M79.672) 08/11/2024 Other hammer toe(s) (acquired), left foot (ICD-10 - M20.42) 08/11/2024 Pain in right toe(s) (ICD-10 - M79.674) 10/13/2024 Atherosclerosis of [place] arteries of extremities with intermittent claudication, bilateral legs (ICD-10 - I70.213) 12/15/2024 Atherosclerosis of [place] arteries of extremities with intermittent claudication, bilateral legs (ICD-10 - I70.213) 02/16/2025 Atherosclerosis of [place] arteries of extremities with intermittent claudication, bilateral legs (ICD-10 - I70.213) 06/22/2025 Atherosclerosis of [place] arteries of extremities with intermittent claudication, bilateral legs (ICD-10 - I70.213) 04/20/2025 Atherosclerosis of [place] arteries of extremities with intermittent claudication, bilateral legs (ICD-10 - I70.213) 07/06/2025 Atherosclerosis of [place] arteries of extremities with intermittent claudication, bilateral [...] cut and pared utilizing a #15 blade 04/20/2025 Acquired keratosis [keratoderma] palmaris et plantaris (ICD-10 - L85.1) A total of 3 corns or calluses, as described in the note above, were cut and pared utilizing a #15 blade 06/22/2025 Acquired keratoderma (ICD-10 - L85.1) 02/16/2025 Acquired keratosis [keratoderma] palmaris et plantaris [...] (ICD-10 - M79.675) 08/11/2024 Unspecified atherosclerosis of [place] arteries of extremities, bilateral legs (ICD-10 - I70.203) Patient educated on risks and aggravating factors of PVD, including conservative treatment options such as a diet and exercise regimen to aid in slowing progression of vascular disease 07/06/2025 Plantar fascial fibromatosis (ICD-10 - M72.2) Heel Pain: I discussed anti-inflammatory treatment options and various means of pronation control with the patient. I educated the patient on icing and stretching, supportive shoegear, and the use of orthotic devices. Kenalog Injection: Following skin prep, a total of 3 ccs of a 1-1-1 mix of 0.5% marcaine plain, 1% lidocaine plain, and Kenalog was injected right origin of plantar fascial band. 08/11/2024 Acquired keratosis [keratoderma] palmaris et plantaris [...] Details Provider Name:YOUSUF SHANKS, 08/31/2025 09:10:00 AM, [address] [place] [address], [phone], Insurance Providers Payer Name Payer Address Payer Phone Subscriber Number Group Number Insured Name Patient Relationship to Insured Coverage Start Date Coverage End Date Medicare Part B [place] [address] [place] [phone] [id number] JACOB KAPADIA Self - patient is the insured [facility] [address] [address] [place] [id number] JACOB KAPADIA Self - patient is the insured
--- OUTSIDE RECORDS SUMMARY | 2025-07-18 12:52 | XMS_ITS | Clinical Summary ---
Author Organization [facility] Address [facility] [place] [address] Care Team Providers Care Grain Picker Name Role Phone Liliam Espinoza MD Primary Care Provider [phone] Allergies Active Allergy Reactions Criticality Noted Date [...] Vaccine: 50+ Years (2 of 2 - PCV20 or PCV21) 05/01/2017 05/01/2016 COVID-19 Vaccine ( season) 2025 07/11/2022, 10/01/2021, 12/28/2020, Additional history exists Influenza Adult (#1) 2025 07/27/2023, 06/18/2021, 06/07/2020, Additional history exists DTaP, Tdap and Td Vaccines (3 - Td or Tdap) 02/09/2028 02/08/2018, 05/08/2015 Hepatitis A Vaccines Aged Out No long er eligible based on patient's age to complete this topic Meningococcal B Vaccine Aged Out No l onger eligible based on patient's age to complete this topic Meningococcal Vaccine Aged Out No khoa logan eligible based on patient's age to complete this topic RSV Immunizations Under 20 Months Aged Out No longer eligible based on patient's age to complete this topic Insurance MEDICARE [facility] LIFE AND CASUALTY MEDICARE [facility] Care Teams Grain Picker Relationship Specialty Start Date End Date Liliam Espinoza MD [address] [place] [address] PCP - General INTERNAL MEDICINE 05/04/24
--- OUTSIDE RECORDS SUMMARY | 2025-07-18 12:52 | XMS_ITS | Encounter Summary ---
Author Organization [facility] Address [facility] [place] [address] Care Team Providers Care Supervisor Train Operations Name Role Phone Liliam Espinoza MD Primary Care Provider [phone] Encounter Details Date Type Department Care Team (Late st Contact Info) Description 05/04/2024 Hospital Orders Only [facility] [address] [facility] [place] [address] Alexandria Calixto MD [address] [place], [place] [id number] Social History Tobacco Use Types Packs/Day Years [...] on filedocumented in this encounter Care Teams Supervisor Train Operations Relationship Specialty Start Date End Date Liliam Espinoza MD [address] [place] [address] PCP - General INTERNAL MEDICINE 05/04/24 documented as of this encounter
== END 2025-07-18 10:30 | disposition home or self-care (01) ==
LOC: CHSIMG 10:32
PROVIDERS: PCP Internal Medicine; Visit Provider Internal Medicine
DX: M79.672 Pain in left foot (principal); M79.671 Pain in right foot
CPT/HCPCS: 73650

== ENCOUNTER 2025-07-24 13:44 | Outpatient (RCR) | payer MEDICARE, SELFPAY ==
--- NOTE | 2025-07-24 16:47 | OPREHPOC ---
Outpatient Therapy Plan of Care This is a Multidisciplinary Plan of Care that may contain components documented by all disciplines (PT, OT, and ST.) PT Problem 1 PT Problem #1 Knowledge Deficit PT Goal 1 Goal / Goal Update independent and compliant with HEP Target Visit 6 PT Problem 2 PT Problem #2 Pain PT Goal 1 Goal / Goal Update decrease pain at worst to 4/10 or less in the lower back Target Visit 12 PT Problem 3 PT Problem #3 Impaired Range of Motion PT Goal 1 Goal / Goal Update improve lumbar extension to 15 degrees or better actively improve lumbar side bending bilat to 30 degrees or better Target Visit 12 PT Problem 4 PT Problem #4 Impaired Strength PT Goal 1 Goal / Goal Update improve bilateral hip strength to 4+/5 or better overall improve core and lower back strength to 4/5 or better overall Target Visit 12 PT Problem 5 PT Problem #5 Impaired Functional Mobility PT Goal 1 Goal / Goal Update patient to perform house hold chores/activities for 1 hour without increased pain oswestry to display 20% or less functional deficits Target Visit 12
--- NOTE | 2025-07-24 16:47 | PTOPEVAL1 ---
Assessment and note entered by JT File, PT Evaluation Information Assessment Status Evaluation ICD-10 Condition Codes (PT) Pain in low back M54.50,Radiculopathy, lumbar region M54.16 Onset 07/19/2025 Subjective Information patient reports she is coming to therapy with pain in her lower back. she reports it ranges from the middle to the lower back. she reports the pain is about a 9/10 today, and feels like a constant ache pain. she reports her pain is increased with activity (especially scrubbing floors, vacuuming, home care). she reports she is able to walk at the gym on the treadmill without issues for up to 45 minutes. she reports walking from the car to the store in the parking lot is difficult, she reports she then uses a cart in the store and she is good . she reports she is having an MRI of the lower back thursday, and scheduling to start pain management soon. Reported Pain Level Pain Score 9: Self Report Assessment PT Clinical Summary mrs. cotter is a pleasant 84 yo woman who presents to skilled PT services for evaluation and treatment of lower back pain. she displays signs and symptoms consistent with lumbar DDD. she displays decreased rom, mm weakness of the hips/ core, poor posture, and decreased functional activity performance. continued skilled PT is indicated to improve her objective/functional deficits and progress towards a return to her prior level functional activity performance/ quality of life. Plan of Care Interventions Electrical Stimulation,Gait Training,Hot Pack/Cold Pack,Manual Therapy,Neuro Re-education,Patient/ Caregiver Education,Therapeutic Activities, Therapeutic Exercise PT Services Indicated Yes Treatment Frequency and 3x weekly for 12 visits Duration These treatments will address the objective and functional deficits as defined above. The patient will be advanced safely and appropriately in order for the patient to progress towards his/her prior level of function. Additional exercises will be introduced and as well as a comprehensive home exercise program upon discharge, if needed, ?to ensure carryover of functional gains achieved in the clinic. This treatment plan has been reviewed and agreement upon by the patient.
--- NOTE | 2025-08-14 10:39 | OPREHPOC ---
Outpatient Therapy Plan of Care This is a Multidisciplinary Plan of Care that may contain components documented by all disciplines (PT, OT, and ST.) PT Problem 1 PT Problem #1 Knowledge Deficit PT Goal 1 Goal / Goal Update independent and compliant with HEP Target Visit 6 Progress Met PT Problem 2 PT Problem #2 Pain PT Goal 1 Goal / Goal Update decrease pain at worst to 4/10 or less in the lower back Target Visit 12 Progress Not Met PT Problem 3 PT Problem #3 Impaired Range of Motion PT Goal 1 Goal / Goal Update improve lumbar extension to 15 degrees or better actively improve lumbar side bending bilat to 30 degrees or better Target Visit 12 Progress Not Met PT Problem 4 PT Problem #4 Impaired Strength PT Goal 1 Goal / Goal Update improve bilateral hip strength to 4+/5 or better overall -met improve core and lower back strength to 4/5 or better overall -not met Target Visit 12 Progress Not Met PT Problem 5 PT Problem #5 Impaired Functional Mobility PT Goal 1 Goal / Goal Update patient to perform house hold chores/activities for 1 hour without increased pain -met oswestry to display 20% or less functional deficits -met Target Visit 12 Progress Met
--- NOTE | 2025-08-14 10:39 | PTOPPROG ---
Assessment and note entered by Alyx Allan, PT Evaluation Information Assessment Status Progress ICD-10 Condition Codes (PT) Pain in low back M54.50,Radiculopathy, lumbar region M54.16 Onset 07/19/2025 Subjective Information Qing reports her lower back pain is around 2/10 today. She reports she feels well overall and that PT has been helping. She states she typically leaves therapy having no pain in her lower back, however after her last appointment this past Thursday she states she was in quite a bit more pain . She thinks the bike was too strong and that it made her flare up, and she left PT in pain and was in pain for the rest of the night. Her pain is better overall today. She thinks her back is a lot better than it was and she notes improvement in her ability to perform household tasks with less pain. She states she's able to vacuum a few rooms at a time now vs only being able to vacuum one at a time before needing to sit due to pain. She also states she can stand at the sink to wash her dishes without pain. She plans to getting back into the gym where she likes to walk on the treadmill for 40 mins at a time and she also uses the stationary bike occasionally. Assessment PT Clinical Summary Mrs. Rock has attended 10 skilled PT visits addressing lower back pain. Since beginning PT she has made good improvements in her hip and abdominal strength. She also notes improvement in her ability to vacuum, scrub her floors and stand to do dishes. She does continue to demonstrate limitations in her lumbar AROM and abdominal strength and she would benefit from continued skilled PT intervention to make further progress toward goals. Plan of Care Interventions Electrical Stimulation,Gait Training,Hot Pack/Cold Pack,Manual Therapy,Neuro Re-education,Patient/ Caregiver Education,Therapeutic Activities, Therapeutic Exercise PT Services Indicated Yes Treatment Frequency and Continue per original POC Duration These treatments will address the objective and functional deficits as defined above. The patient will be advanced safely and appropriately in order for the patient to progress towards his/her prior level of function. Additional exercises will be introduced and as well as a comprehensive home exercise program upon discharge, if needed, ?to ensure carryover of functional gains achieved in the clinic. This treatment plan has been reviewed and agreement upon by the patient.
--- NOTE | 2025-08-18 10:39 | OPREHPOC ---
Outpatient Therapy Plan of Care This is a Multidisciplinary Plan of Care that may contain components documented by all disciplines (PT, OT, and ST.) PT Problem 1 PT Problem #1 Knowledge Deficit PT Goal 1 Goal / Goal Update independent and compliant with HEP Target Visit 6 Progress Met PT Problem 2 PT Problem #2 Pain PT Goal 1 Goal / Goal Update decrease pain at worst to 4/10 or less in the lower back Target Visit 12 Progress Met PT Problem 3 PT Problem #3 Impaired Range of Motion PT Goal 1 Goal / Goal Update improve lumbar extension to 15 degrees or better actively improve lumbar side bending bilat to 30 degrees or better Target Visit 12 Progress Not Met PT Problem 4 PT Problem #4 Impaired Strength PT Goal 1 Goal / Goal Update improve bilateral hip strength to 4+/5 or better overall -met improve core and lower back strength to 4/5 or better overall -met Target Visit 12 Progress Met PT Problem 5 PT Problem #5 Impaired Functional Mobility PT Goal 1 Goal / Goal Update patient to perform house hold chores/activities for 1 hour without increased pain -met oswestry to display 20% or less functional deficits -met Target Visit 12 Progress Met
--- NOTE | 2025-08-18 10:39 | PTOPDC ---
Assessment and note entered by JT File, PT Evaluation Information Assessment Status Discharge ICD-10 Condition Codes (PT) Pain in low back M54.50,Radiculopathy, lumbar region M54.16 Onset 07/19/2025 Subjective Information patient reports she feels much better, and reports she is ready to DC therapy today. she reports she has at worst 3-4/10 lower back pain, but reports she is able to stand, walk, and do much more than than she was prior to skilled PT. Reported Pain Level Pain Score 1: Self Report Assessment PT Clinical Summary mrs. cotter presents to skilled PT for her 12th skilled PT visit. she displays improved rom, strength, functional activity performance, and decreased pain. she has met all goals for skilled PT except for lumbar rom. she will DC skilled PT today, and continue with HEP independent at home. Plan of Care PT Services Indicated Yes
== END 2025-08-18 16:03 | disposition home or self-care (01) ==
LOC: CHSPT 13:44
PROVIDERS: Visit Provider Nurse Practitioner Family
DX: M54.16 Radiculopathy, lumbar region (principal); M54.59 Other low back pain; M54.6 Pain in thoracic spine
CPT/HCPCS: 97014; 97110; 97112; 97161; G0283

== ENCOUNTER 2025-08-09 10:42 | Outpatient (CLI) | payer MEDICARE, SELFPAY ==
[2025-08-09] MEDS: DENOSUMAB 60 MG/ML SYRINGE SUB-Q (10:56)
[2025-08-09 11:02] VITALS: BP 121/70; PULSE 76; RESP 14; TEMP 36.6; O2SAT 98; BMI 27.7
== END 2025-08-09 10:43 | disposition home or self-care (01) ==
PROVIDERS: PCP Internal Medicine; Visit Provider Internal Medicine
DX: M81.0 Age-related osteoporosis without current pathological fracture (principal)
CPT/HCPCS: 96372; J0897

== ENCOUNTER 2025-08-12 10:37 | Outpatient (CLI) | payer MEDICARE, SELFPAY ==
--- NOTE | ~2025-08-12 | MR_ITS ---
EXAMINATION: MR lumbar spine wo con DATE: 08/12/2025 11:25 INDICATION: Chronic low back pain. TECHNIQUE: Magnetic resonance imaging (MRI) of the lumbar spine was performed without intravenous contrast. Sequences included sagittal T2-weighted FSE, sagittal T2-weighted FS FSE, sagittal T1-weighted FSE, and axial T2-weighted FSE. COMPARISON: Lumbar spine MRI 10/08/2023 FINDINGS: There is 11 degrees dextroscoliosis of thoracolumbar spine. There is 3 mm retrolisthesis of L1 and L2, L2 on L3, and L5 on S1. There are Schmorl's nodes at multiple levels. There is severely decreased disc height at L1-L2 and L2-L3, mildly decreased disc height at L3-L4, moderately decreased disc height at L4-L5, and severely decreased disc height at L5-S1. The distal spinal cord signal intensity is normal. The conus medullaris is at L1. The following disc levels are specifically discussed: L1-L2: The disc is bulging and has an annular fissure. There is moderate bilateral facet joint osteoarthritis. There is mild left neural foraminal stenosis. There is mild central canal stenosis. L2-L3: The disc is bulging and has an annular fissure. There is severe bilateral facet joint osteoarthritis. There is mild bilateral neural foraminal stenosis. There is mild central canal stenosis. L3-L4: The disc is bulging and has an annular fissure. There is severe bilateral facet joint osteoarthritis. There is mild bilateral neural foraminal stenosis. There is mild central canal stenosis. L4-L5: The disc is bulging and has an annular fissure. There is severe bilateral facet joint osteoarthritis. There is mild bilateral neural foraminal stenosis. There is mild central canal stenosis. L5-S1: The disc is bulging and has an annular fissure. There is moderate bilateral facet joint osteoarthritis. There is mild bilateral neural foraminal stenosis. There is mild central canal stenosis. IMPRESSION: 1. Severe lumbar spondylosis, stable from 10/08/2023. 2. Thoracolumbar dextroscoliosis. Reviewed, dictated and finalized at location E. S FLOOR MANAGER
== END 2025-08-12 10:38 | disposition home or self-care (01) ==
PROVIDERS: PCP Internal Medicine; Visit Provider Nurse Practitioner Family
DX: M54.16 Radiculopathy, lumbar region (principal); M43.06 Spondylolysis, lumbar region; M41.9 Scoliosis, unspecified
CPT/HCPCS: 72148

== ENCOUNTER 2025-09-23 09:37 | Outpatient (CLI) | payer MEDICARE, SELFPAY ==
--- OUTSIDE RECORDS SUMMARY | 2025-02-16 05:40 | XMS_ITS ---
Author Organization [facility] Address [address] [place], [place] [id number] Care Team Providers Care Router Tender Name Role Phone YOUSUF SALGADO Unavailable [phone] Liliam Espinoza Unavailable Unavailable Allergies Allergen (clinical drug ingredient) Drug/Non Drug Allergy documented on EMR Reaction Allergy Type Onset Date Status Iodine Unknown Drug Allergy 09/17/2012 active REASON FOR VISIT *General care Medications Medication SIG (Take, Route, Frequency, Duration) Notes Start Date End Date Status alprazolam 0.25 MG Oral Tablet [Xanax] ORAL alprazolam 0.25 MG Oral Tablet [Xanax]Original Medicationalprazolam 0.25 MG Oral Tablet [Xanax] *Reorder from [employer] for eRx and Interaction Alerts* 09/17/2012 Active amoxicillin 200 MG Chewable Tablet ORAL amoxicillin 200 MG Chewable TabletOriginal Medicationamoxicillin 200 MG Chewable Tablet *Reorder from [employer] for eRx and Interaction Alerts* 09/17/2012 Active aspirin 162 MG Delayed Release Oral Tablet ORAL aspirin 162 MG Delayed Release Oral TabletOriginal Medicationaspirin 162 MG Delayed Release Oral Tablet *Reorder from [employer] for eRx and Interaction Alerts* 09/17/2012 Active esomeprazole 40 MG Delayed Release Oral Capsule [Nexium] ORAL esomeprazole 40 MG Delayed Release Oral Capsule [Nexium]Original Medicationesomeprazole 40 MG Delayed Release Oral Capsule [Nexium] *Reorder from [employer] for eRx and Interaction Alerts* 09/17/2012 Active silver sulfadiazine 10 MG/ML Topical Cream [SSD] CUTANEOUS silver sulfadiazine 10 MG/ML Topical Cream [SSD]Original Medicationsilver sulfadiazine 10 MG/ML Topical Cream [SSD] *Reorder from [employer] for eRx and Interaction Alerts* 09/17/2012 Active Desmopressin Acetate 0.2 MG Oral Tablet ORAL desmopressin acetate 0.2 MG Oral TabletOriginal Medicationdesmopressin acetate 0.2 MG Oral Tablet *Reorder from [employer] for eRx and Interaction Alerts* 09/17/2012 Active Social History Social History Additional Details Category Social Info Options Details Migrated Social History Migrated Social History Smoking Status : Never smoked , History of tobacco use : Vital Signs Height 66.00 in 02/16/2025 Weight 160 lbs 02/16/2025 BMI 25.82 kg/m2 02/16/2025 Height-cm 167.64 cm 02/16/2025 Weight-kg 72.58 kg 02/16/2025 Encounters Encounter Location Date Provider Diagnosis [address] [id number] 02/16/2025 YOUSUF SALGADO Tinea unguium B35.1 ; Pain in right foot M79.671 ; Pain in left foot M79.672 ; Atherosclerosis of [place] arteries of extremities with intermittent claudication, bilateral legs I70.213 and Acquired keratosis [keratoderma] palmaris et plantaris L85.1 Assessments Encounter Date Diagnosis (ICD Code) Assessment Notes Treatment Notes Treatment Clinical Notes Section Notes 02/16/2025 Tinea unguium (ICD-10 - B35.1) Nails 1-5 Bilateral were debrided extensively with nail nippers and emery board, reducing length and girth to pink healthy tissue with any subungual debris and necrotic tissue removed 02/16/2025 Pain in right foot (ICD-10 - M79.671) 02/16/2025 Pain in left foot (ICD-10 - M79.672) 02/16/2025 Atherosclerosis of [place] arteries of extremities with intermittent claudication, bilateral legs (ICD-10 - I70.213) 02/16/2025 Acquired keratosis [keratoderma] palmaris et plantaris (ICD-10 [...] sooner if problems develop. Provider Name:YOUSUF SHANKS, 11/09/2025 09:20:00 AM, [address] [place] [address], [phone], History and Physical Notes * HPI (History [...] Date last seen by Dr. Espinoza was 12/2024., Initials [facility] Examination Category Sub-Category Detail Notes [...] inversion, and eversion in bilateral lower extremities Progress Notes * JACOB KAPADIA ADOB: [birth year] (84 yo F)Acc No.[id number]:02/16/2025 Patient: Fay JACOB GOLDSMITH Provider: Lenard SALGADO :1940 A ge:84 Y S ex:Female Date:02/16/2025 Address:[address] [place], [place] [address] Subjective: * Chief Complaints: * * General care * HPI: H PI: General care P atient presents to the office for at risk foot care. Patient states that their nails are thickened, elongated and painful. Patient states that it is aggravated by shoe gear. Onset is gradual. Patient denies being diabetic., Patient denies taking blood thinners., Date last seen by Dr. Espinoza was 12/2024., Initials [facility]. * ROS: G eneral / Constitutional: Patient denies w eakness. M usculoskeletal: Patient complains of j oint pain, hammertoes. ? P eripheral Vascular: Patient denies b lanching of skin, cold extremities, decreased sensation in extremities. S kin: Patient complains of f ungal nails, discoloration, nail changes, calluses and corns. N eurologic: Patient denies d izziness, gait abnormality, headache. * Family History: F ather: PRN - Father: :: Cancer,,known absent . M other: PRN - Mother: :: Heart Disease < 55 yrs,,known absent . S ister: SIB - Sister: . F amily History Verified.. * Social History: M igrated Social History: M igrated Social History: Smoking Status : Never smoked , History of tobacco use :. Social History Verified. * Medications: T akingDesmopressin Acetate 0.2 MG Oral Tablet ORAL , Notes to Pharmacist: desmopressin acetate 0.2 MG Oral TabletOriginal Medicationdesmopressin acetate 0.2 MG Oral Tablet *Reorder from [employer] for eRx and Interaction Alerts*alprazolam 0.25 MG Oral Tablet [Xanax] ORAL , Notes to Pharmacist: alprazolam 0.25 MG Oral Tablet [Xanax]Original Medicationalprazolam 0.25 MG Oral Tablet [Xanax] *Reorder from [employer] for eRx and Interaction Alerts*amoxicillin 200 MG Chewable Tablet ORAL , Notes to Pharmacist: amoxicillin 200 MG Chewable TabletOriginal Medicationamoxicillin 200 MG Chewable Tablet *Reorder from [facility] for eRx and Interaction Alerts*aspirin 162 MG Delayed Release Oral Tablet ORAL , Notes to Pharmacist: aspirin 162 MG Delayed Release Oral TabletOriginal Medicationaspirin 162 MG Delayed Release Oral Tablet *Reorder from [facility] for eRx and Interaction Alerts*esomeprazole 40 MG Delayed Release Oral Capsule [Nexium] ORAL , Notes to Pharmacist: esomeprazole 40 MG Delayed Release Oral Capsule [Nexium]Original Medicationesomeprazole 40 MG Delayed Release Oral Capsule [Nexium] *Reorder from [facility] for eRx and Interaction Alerts*silver sulfadiazine 10 MG/ML Topical Cream [SSD] CUTANEOUS , Notes to Pharmacist: silver sulfadiazine 10 MG/ML Topical Cream [SSD]Original Medicationsilver sulfadiazine 10 MG/ML Topical Cream [SSD] *Reorder from [facility] for eRx and Interaction Alerts*Medication List reviewed and reconciled with the patientTaking Desmopressin Acetate 0.2 MG Oral Tablet ORAL , Notes to Pharmacist: desmopressin acetate 0.2 MG Oral TabletOriginal Medicationdesmopressin acetate 0.2 MG Oral Tablet *Reorder from [facility] for eRx and Interaction Alerts*Taking alprazolam 0.25 MG Oral Tablet [Xanax] ORAL , Notes to Pharmacist: alprazolam 0.25 MG Oral Tablet [Xanax]Original Medicationalprazolam 0.25 MG Oral Tablet [Xanax] *Reorder from [facility] for eRx and Interaction Alerts*Taking amoxicillin 200 MG Chewable Tablet ORAL , Notes to Pharmacist: amoxicillin 200 MG Chewable TabletOriginal Medicationamoxicillin 200 MG Chewable Tablet *Reorder from [facility] for eRx and Interaction Alerts*Taking aspirin 162 MG Delayed Release Oral Tablet ORAL , Notes to Pharmacist: aspirin 162 MG Delayed Release Oral TabletOriginal Medicationaspirin 162 MG Delayed Release Oral Tablet *Reorder from [facility] for eRx and Interaction Alerts*Taking esomeprazole 40 MG Delayed Release Oral Capsule [Nexium] ORAL , Notes to Pharmacist: esomeprazole 40 MG Delayed Release Oral Capsule [Nexium]Original Medicationesomeprazole 40 MG Delayed Release Oral Capsule [Nexium] *Reorder from [facility] for eRx and Interaction Alerts*Taking silver sulfadiazine 10 MG/ML Topical Cream [SSD] CUTANEOUS , Notes to Pharmacist: silver sulfadiazine 10 MG/ML Topical Cream [SSD]Original Medicationsilver sulfadiazine 10 MG/ML Topical Cream [SSD] *Reorder from [employer] for eRx and Interaction Alerts*Medication List reviewed and reconciled with the patient * Allergies: I odine: Allergy - Onset Date 09/17/2012yesAllergies Verified. Objective: * Vitals: W t: 160 lbs, Wt-k.58 kg, Ht: 66.00 in, Ht-cm: 167.64 cm, BMI: 25.82 Index, Body Surface Area: 1.84. * Examination: P hysical Examination: General appearance: [...] and pared utilizing a #15 blade * Immunizations: Immunization record has been reviewed and updated. * Procedure Codes: 1 1056 TRIM SKIN LESIONS, 2 TO 4, Modifiers: Q8 43851 DEBRIDE NAIL, 6 OR MORE, Modifiers: 59 , Q8 * Follow Up: 1 0 - 12 weeks (Reason: At-Risk Foot care, sooner if problems develop.) Billing Information: * Procedure Codes: 89572 TRIM SKIN LESIONS, 2 TO 4. Modifiers: Q8 49064 DEBRIDE NAIL, 6 OR MORE. Modifiers: 59, Q8 * Electronic signature of DAMON SALGADO DPM on 09/23/2025 at 09:41 AM FINE GRADE BULLDOZER OPERATOR Sign off status: Pending * Provider: Lenard SALGADO Date: 0 02/16/2025 Generated for Patrick garay/Stephanie/Carlos Manuel on: 1 11/24/2024 09:41 AM FINE GRADE BULLDOZER OPERATOR
--- OUTSIDE RECORDS SUMMARY | 2025-04-20 05:10 | XMS_ITS ---
Author Organization [facility] Address [address] [place], [place] [address] Care Team Providers Care Geoscience Technician Name Role Phone YOUSUF SALGADO Unavailable [phone] Liliam Espinoza Unavailable Unavailable Allergies Allergen (clinical [...] 10 MG/ML Topical Cream [SSD] *Reorder from [employer] for eRx and Interaction Alerts* 09/17/2012 Active esomeprazole 40 MG Delayed Release Oral Capsule [Nexium] ORAL esomeprazole 40 MG Delayed Release Oral Capsule [Nexium]Original Medicationesomeprazole 40 MG Delayed Release Oral Capsule [Nexium] *Reorder from [facility] for eRx and Interaction Alerts* 09/17/2012 Active aspirin 162 MG Delayed Release Oral Tablet ORAL aspirin 162 MG Delayed Release Oral TabletOriginal Medicationaspirin 162 MG Delayed Release Oral Tablet *Reorder from [facility] for eRx and Interaction Alerts* 09/17/2012 Active amoxicillin 200 MG Chewable Tablet ORAL amoxicillin 200 MG Chewable TabletOriginal Medicationamoxicillin 200 MG Chewable Tablet *Reorder from [employer] [facility] for eRx and Interaction Alerts* 09/17/2012 Active alprazolam 0.25 MG Oral Tablet [Xanax] ORAL alprazolam 0.25 MG Oral Tablet [Xanax]Original Medicationalprazolam 0.25 MG Oral Tablet [Xanax] *Reorder from [facility] for eRx and Interaction Alerts* 09/17/2012 Active Desmopressin Acetate 0.2 MG Oral Tablet ORAL desmopressin acetate 0.2 MG Oral TabletOriginal Medicationdesmopressin acetate 0.2 MG Oral Tablet *Reorder from [facility] for eRx and Interaction Alerts* 09/17/2012 Active Social History Social History Additional Details Category Social Info Options Details Migrated Social History Migrated Social History Smoking Status : Never smoked , History of tobacco use : Vital Signs Height 66.00 in 04/20/2025 Weight 160 lbs 04/20/2025 BMI 25.82 kg/m2 04/20/2025 Height-cm 167.64 cm 04/20/2025 Weight-kg 72.58 kg 04/20/2025 Encounters Encounter Location Date Provider Diagnosis [address] [id number] 04/20/2025 YOUSUF SALGADO Tinea unguium B35.1 ; Pain in right foot M79.671 ; Pain in left foot M79.672 ; Atherosclerosis of [place] arteries of extremities with intermittent claudication, bilateral legs I70.213 and Acquired keratosis [keratoderma] palmaris et plantaris L85.1 Assessments Encounter Date Diagnosis (ICD Code) Assessment Notes Treatment Notes Treatment Clinical Notes Section Notes 04/20/2025 Tinea unguium (ICD-10 - B35.1) Nails 1-5 Bilateral were debrided extensively with nail nippers and emery board, reducing length and girth to pink healthy tissue with any subungual debris and necrotic tissue removed 04/20/2025 Pain in right foot (ICD-10 - M79.671) 04/20/2025 Pain in left foot (ICD-10 - M79.672) 04/20/2025 Atherosclerosis of [place] arteries of extremities with intermittent claudication, bilateral legs (ICD-10 - I70.213) 04/20/2025 Acquired keratosis [keratoderma] palmaris et plantaris (ICD-10 [...] develop. Provider Name:YOUSUF SHANKS, 11/09/2025 09:20:00 AM, [address] [place] [address], [id number], History and Physical Notes * HPI (History [...] Date last seen by Dr. Espinoza was 02/2025., Initials nd Examination Category Sub-Category Detail Notes Category Not es Dermatologic Skin findings: Skin is thin, at rophic and lacking pedal hair Nail pathology: 1st nails severely t hick and ingrown with layers of discolored nail. Nails 1, 2, 3, 4, and 5 bilateral [...] JACOB KAPADIA ADOB: [birth year] (84 yo F)Acc No.[id number]:04/20/2025 Patient: JACOB HUERTA Provider: Lenard SALGADO :1940 A ge:84 Y S ex:Female Date:04/20/2025 Address:[address] [place] [address] Subjective: * Chief Complaints: * * General care * HPI: H PI: General care P atient presents to the office for at risk foot care. Patient states that their nails are thickened, elongated and painful. Patient states that it is aggravated by shoe gear. Onset is gradual. Patient denies being diabetic., Patient denies taking blood thinners., Date last seen by Dr. Espinoza was 02/2025., Initials nd. * ROS: G eneral / Constitutional: Patient denies w eakness. M usculoskeletal: Patient complains of j oint pain, hammertoes. ? P eripheral Vascular: Patient denies b lanching of skin, cold extremities, decreased sensation in extremities. S kin: Patient complains of f ungal nails, discoloration, nail changes, calluses and corns. N eurologic: Patient denies d izziness, gait abnormality, headache. * Medical History: Denies Past Medical History No Medical History Documented Medical History Verified * Surgical History: Denies Past Surgical History. Surgical History verified. * Hospitalization/Major Diagno stic Procedure: Denies Past Hospitalization. Hospitalization Verified. * Family History: F ather: PRN - [...] acetate 0.2 MG Oral Tablet *Reorder from [facility] for eRx and Interaction Alerts*alprazolam 0.25 MG Oral Tablet [Xanax] ORAL , Notes to Pharmacist: alprazolam 0.25 MG Oral Tablet [Xanax]Original Medicationalprazolam 0.25 MG Oral Tablet [Xanax] *Reorder from [facility] for eRx and Interaction Alerts*amoxicillin 200 MG Chewable Tablet ORAL , Notes to Pharmacist: amoxicillin 200 MG Chewable TabletOriginal Medicationamoxicillin 200 MG Chewable Tablet *Reorder from [facility] for eRx and Interaction Alerts*aspirin 162 MG Delayed Release Oral Tablet ORAL , Notes to Pharmacist: aspirin 162 MG Delayed Release Oral TabletOriginal Medicationaspirin 162 MG Delayed Release Oral Tablet *Reorder from [facility] for eRx and Interaction Alerts*esomeprazole 40 MG Delayed Release Oral Capsule [Nexium] ORAL , Notes to Pharmacist: esomeprazole 40 MG Delayed Release Oral Capsule [Nexium]Original Medicationesomeprazole 40 MG Delayed Release Oral Capsule [Nexium] *Reorder from [facility] for eRx and Interaction Alerts*silver sulfadiazine 10 MG/ML Topical Cream [SSD] CUTANEOUS , Notes to Pharmacist: silver sulfadiazine 10 MG/ML Topical Cream [SSD]Original Medicationsilver sulfadiazine 10 MG/ML Topical Cream [SSD] *Reorder from [facility] for eRx and Interaction Alerts*Medication List reviewed and reconciled with the patientTaking Desmopressin Acetate 0.2 MG Oral Tablet ORAL , Notes to Pharmacist: desmopressin acetate 0.2 MG Oral TabletOriginal Medicationdesmopressin acetate 0.2 MG Oral Tablet *Reorder from [facility] for eRx and Interaction Alerts*Taking alprazolam 0.25 MG Oral Tablet [Xanax] ORAL , Notes to Pharmacist: alprazolam 0.25 MG Oral Tablet [Xanax]Original Medicationalprazolam 0.25 MG Oral Tablet [Xanax] *Reorder from [facility] for eRx and Interaction Alerts*Taking amoxicillin 200 MG Chewable Tablet ORAL , Notes to Pharmacist: amoxicillin 200 MG Chewable TabletOriginal Medicationamoxicillin 200 MG Chewable Tablet *Reorder from [facility] for eRx and Interaction Alerts*Taking aspirin 162 MG Delayed Release Oral Tablet ORAL , Notes to Pharmacist: aspirin 162 MG Delayed Release Oral TabletOriginal Medicationaspirin 162 MG Delayed Release Oral Tablet *Reorder from [facility] for eRx and Interaction Alerts*Taking esomeprazole 40 MG Delayed Release Oral Capsule [Nexium] ORAL , Notes to Pharmacist: esomeprazole 40 MG Delayed Release Oral Capsule [Nexium]Original Medicationesomeprazole 40 MG Delayed Release Oral Capsule [Nexium] *Reorder from [employer] for eRx and Interaction Alerts*Taking silver sulfadiazine 10 MG/ML Topical Cream [SSD] CUTANEOUS , Notes to Pharmacist: silver sulfadiazine 10 MG/ML Topical Cream [SSD]Original Medicationsilver sulfadiazine 10 MG/ML Topical Cream [SSD] *Reorder from [facility] for eRx and Interaction Alerts*Medication List reviewed [...] of the right 3rd digit. Nail pathology: 1 st nails severely thick and ingrown with layers of discolored nail. Nails 1, 2, 3, 4, and 5 bilateral are elongated, thick, discolored, and dystrophic with subungual debris. They are painful to palpation. V ascular: Dorsalis pedis pulse: 1 /4 [...] M79.672 4 . A therosclerosis of [place] arteries of extremities with intermittent claudication, bilateral [...] SKIN LESIONS, 2 TO 4, Modifiers: Q8 96135 DEBRIDE NAIL, 6 OR MORE, Modifiers: 59 , Q8 * Follow Up: 1 0 - 12 weeks (Reason: At-Risk Foot care, sooner if problems develop.) Billing Information: * Procedure Codes: 05468 TRIM SKIN LESIONS, 2 TO 4. Modifiers: Q8 15887 DEBRIDE NAIL, 6 OR MORE. Modifiers: 59, Q8 * Electronic signature of DAMON SALGADO DPM on 09/23/2025 at 09:40 AM ROSTER CLERK Sign off status: Pending * Provider: Lenard SALGADO Date: 0 04/20/2025 Generated for Patrick garay/Stephanie/Juanitting on: 1 11/24/2024 09:40 AM ROSTER CLERK
--- OUTSIDE RECORDS SUMMARY | 2025-06-22 05:20 | XMS_ITS ---
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 Name Role Phone YOUSUF SALGADO Unavailable [phone] Liliam Espinoza Unavailable Unavailable Allergies Allergen (clinical [...] acetate 0.2 MG Oral Tablet *Reorder from [facility] for eRx and Interaction Alerts* 09/17/2012 Active alprazolam 0.25 MG Oral Tablet [Xanax] ORAL alprazolam 0.25 MG Oral Tablet [Xanax]Original Medicationalprazolam 0.25 MG Oral Tablet [Xanax] *Reorder from [facility] for eRx and Interaction Alerts* 09/17/2012 Active aspirin 162 MG Delayed Release Oral Tablet ORAL aspirin 162 MG Delayed Release Oral TabletOriginal Medicationaspirin 162 MG Delayed Release Oral Tablet *Reorder from [facility] for eRx and Interaction Alerts* 09/17/2012 Active esomeprazole 40 MG Delayed Release Oral Capsule [Nexium] ORAL esomeprazole 40 MG Delayed Release Oral Capsule [Nexium]Original Medicationesomeprazole 40 MG Delayed Release Oral Capsule [Nexium] *Reorder from [facility] for eRx and Interaction Alerts* 09/17/2012 Active silver sulfadiazine 10 MG/ML Topical Cream [SSD] CUTANEOUS silver sulfadiazine 10 MG/ML Topical Cream [SSD]Original Medicationsilver sulfadiazine 10 MG/ML Topical Cream [SSD] *Reorder from [facility] for eRx and Interaction Alerts* 09/17/2012 Active amoxicillin 200 MG Chewable Tablet ORAL amoxicillin 200 MG Chewable TabletOriginal Medicationamoxicillin 200 MG Chewable Tablet *Reorder from [facility] for eRx and Interaction Alerts* 09/17/2012 Active Social History Social History Additional Details Category Social Info Options Details Migrated Social History Migrated Social History Smoking Status : Never smoked , History of tobacco use : Vital Signs Height 66.00 in 06/22/2025 Weight 160 lbs 06/22/2025 BMI 25.82 kg/m2 06/22/2025 Height-cm 167.64 cm 06/22/2025 Weight-kg 72.58 kg 06/22/2025 Encounters Encounter Location Date Provider Diagnosis [address] [id number] 06/22/2025 YOUSUF SALGADO 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 ; Pain in right toe(s) M79.674 ; Pain in left toe(s) M79.675 ; Atherosclerosis of [place] arteries of extremities with intermittent claudication, bilateral legs I70.213 and Acquired keratoderma L85.1 Assessments Encounter Date Diagnosis (ICD Code) Assessment Notes Treatment Notes Treatment Clinical Notes Section Notes 06/22/2025 Fungal infection of nail (ICD-10 - B35.1) 06/22/2025 Pain in right toe(s) (ICD-10 - M79.674) 06/22/2025 Pain in left toe(s) (ICD-10 - M79.675) 06/22/2025 Atherosclerosis of [place] arteries of extremities with intermittent claudication, bilateral legs (ICD-10 - I70.213) 06/22/2025 Acquired keratoderma (ICD-10 - L85.1) Plan Of Treatment Next Appt Details Provider Name:YOUSUF SHANKS, 11/09/2025 09:20:00 AM, [address] [place] [address], [phone], History and Physical Notes * HPI (History [...] blood thinners., Date last seen by Dr. Willams was April 2025., Initials ab Progress Notes * JACOB KAPADIA ADOB: [birth year] (84 yo F)Acc No.[id number]:06/22/2025 Patient: JACOB HUERTA Provider: Lenard SALGADO :1940 A ge:84 Y S ex:Female Date:06/22/2025 Address:[address] [place] [address] Subjective: * Chief Complaints: * * General care * HPI: H PI: General care P atient presents to the office for at risk foot care. Patient states that their nails are thickened, elongated and painful. Patient states that it is aggravated by shoe gear. Onset is gradual. Patient denies being diabetic., Patient denies taking blood thinners., Date last seen by Dr. Willams was April 2025., Initials ab. * Medical History: No Medical History Documented Medical History Verified [...] acetate 0.2 MG Oral Tablet *Reorder from [facility] for eRx and Interaction Alerts*alprazolam 0.25 MG Oral Tablet [Xanax] ORAL , Notes to Pharmacist: alprazolam 0.25 MG Oral Tablet [Xanax]Original Medicationalprazolam 0.25 MG Oral Tablet [Xanax] *Reorder from [facility] for eRx and Interaction Alerts*amoxicillin 200 MG Chewable Tablet ORAL , Notes to Pharmacist: amoxicillin 200 MG Chewable TabletOriginal Medicationamoxicillin 200 MG Chewable Tablet *Reorder from [facility] for eRx and Interaction Alerts*aspirin 162 MG Delayed Release Oral Tablet ORAL , Notes to Pharmacist: aspirin 162 MG Delayed Release Oral TabletOriginal Medicationaspirin 162 MG Delayed Release Oral Tablet *Reorder from [facility] for eRx and Interaction Alerts*esomeprazole 40 MG Delayed Release Oral Capsule [Nexium] ORAL , Notes to Pharmacist: esomeprazole 40 MG Delayed Release Oral Capsule [Nexium]Original Medicationesomeprazole 40 MG Delayed Release Oral Capsule [Nexium] *Reorder from [facility] for eRx and Interaction Alerts*silver sulfadiazine 10 MG/ML Topical Cream [SSD] CUTANEOUS , Notes to Pharmacist: silver sulfadiazine 10 MG/ML Topical Cream [SSD]Original Medicationsilver sulfadiazine 10 MG/ML Topical Cream [SSD] *Reorder from [facility] for eRx and Interaction Alerts*Medication List reviewed and reconciled with the patientTaking Desmopressin Acetate 0.2 MG Oral Tablet ORAL , Notes to Pharmacist: desmopressin acetate 0.2 MG Oral TabletOriginal Medicationdesmopressin acetate 0.2 MG Oral Tablet *Reorder from [facility] for eRx and Interaction Alerts*Taking alprazolam 0.25 MG Oral Tablet [Xanax] ORAL , Notes to Pharmacist: alprazolam 0.25 MG Oral Tablet [Xanax]Original Medicationalprazolam 0.25 MG Oral Tablet [Xanax] *Reorder from [facility] for eRx and Interaction Alerts*Taking amoxicillin 200 MG Chewable Tablet ORAL , Notes to Pharmacist: amoxicillin 200 MG Chewable TabletOriginal Medicationamoxicillin 200 MG Chewable Tablet *Reorder from [facility] for eRx and Interaction Alerts*Taking aspirin 162 MG Delayed Release Oral Tablet ORAL , Notes to Pharmacist: aspirin 162 MG Delayed Release Oral TabletOriginal Medicationaspirin 162 MG Delayed Release Oral Tablet *Reorder from [facility] for eRx and Interaction Alerts*Taking esomeprazole 40 MG Delayed Release Oral Capsule [Nexium] ORAL , Notes to Pharmacist: esomeprazole 40 MG Delayed Release Oral Capsule [Nexium]Original Medicationesomeprazole 40 MG Delayed Release Oral Capsule [Nexium] *Reorder from [facility] for eRx and Interaction Alerts*Taking silver sulfadiazine 10 MG/ML Topical Cream [SSD] CUTANEOUS , Notes to Pharmacist: silver sulfadiazine 10 MG/ML Topical Cream [SSD]Original Medicationsilver sulfadiazine 10 MG/ML Topical Cream [SSD] *[facility]*Medication List reviewed and reconciled with the patient * Allergies: I odine: Allergy - Onset Date 09/17/2012yesAllergies Verified. Objective: * Vitals: W t: 160 lbs, Wt-k.58 kg, Ht: 66.00 in, Ht-cm: 167.64 cm, BMI: 25.82 Index, Body Surface Area: 1.84. Assessment: * Assessment: 1. F ungal infection of nail - B35.1 (Primary) 2 . P ain in right toe(s) - M79.674 3 . P ain in left toe(s) - M79.675 4 . A therosclerosis of [place] arteries of extremities with intermittent claudication, bilateral legs - I70.213 & #160; 5 . A cquired keratoderma - L85.1 Plan: * Procedure Codes: 1 1056 TRIM SKIN LESIONS, 2 TO 4, Modifiers: Q8 48102 DEBRIDE NAIL, 6 OR MORE, Modifiers: 59 , Q8 * Preventive Medicine: Screenings: F all risk screening F all Risk Assessment: N o falls in the past year. Billing Information: * Procedure Codes: 50883 TRIM SKIN LESIONS, 2 TO 4. Modifiers: Q8 09256 DEBRIDE NAIL, 6 OR MORE. Modifiers: 59, Q8 * Electronic signature of DAMON SALGADO DPM on 09/23/2025 at 09:41 AM LUNCHROOM MONITOR Sign off status: Pending * Provider: Lenard SALGADO Date: 0 06/22/2025 Generated for Patrick garay/Stephanie/Carlos Manuel on: 1 11/24/2024 09:41 AM LUNCHROOM MONITOR
--- OUTSIDE RECORDS SUMMARY | 2025-09-07 04:10 | XMS_ITS ---
Author Organization [facility] Address [address] [place], [place] [id number] Care Team Providers Care Public Relations Assistant Name Role Phone YOUSUF SALGADO Unavailable [phone] Liliam Espinoza Unavailable Unavailable Allergies Allergen (clinical drug ingredient) Drug/Non Drug Allergy documented on EMR Reaction Allergy Type Onset Date Status Iodine Unknown Drug Allergy 09/17/2012 active REASON FOR VISIT *General care Medications Medication SIG (Take, Route, Frequency, Duration) Notes Start Date End Date Status aspirin 162 MG Delayed Release Oral Tablet ORAL aspirin 162 MG Delayed Release Oral TabletOriginal Medicationaspirin 162 MG Delayed Release Oral Tablet *Reorder from [employer] for eRx and Interaction Alerts* 09/17/2012 Active esomeprazole 40 MG Delayed Release Oral Capsule [Nexium] ORAL esomeprazole 40 MG Delayed Release Oral Capsule [Nexium]Original Medicationesomeprazole 40 MG Delayed Release Oral Capsule [Nexium] *Reorder from [employer] for eRx and Interaction Alerts* 09/17/2012 Active silver sulfadiazine 10 MG/ML Topical Cream [SSD] CUTANEOUS silver sulfadiazine 10 MG/ML Topical Cream [SSD]Original Medicationsilver sulfadiazine 10 MG/ML Topical Cream [SSD] *Reorder from [employer] for eRx and Interaction Alerts* 09/17/2012 Active alprazolam 0.25 MG Oral Tablet [Xanax] ORAL alprazolam 0.25 MG Oral Tablet [Xanax]Original Medicationalprazolam 0.25 MG Oral Tablet [Xanax] *Reorder from [employer] for eRx and Interaction Alerts* 09/17/2012 Active amoxicillin 200 MG Chewable Tablet ORAL amoxicillin 200 MG Chewable TabletOriginal Medicationamoxicillin 200 MG Chewable Tablet *Reorder from [employer] for eRx and Interaction Alerts* 09/17/2012 Active Desmopressin Acetate 0.2 MG Oral Tablet ORAL desmopressin acetate 0.2 MG Oral TabletOriginal Medicationdesmopressin acetate 0.2 MG Oral Tablet *Reorder from [facility] for eRx and Interaction Alerts* 09/17/2012 Active Social History Social History Additional Details Category Social Info Options Details Migrated Social History Migrated Social History Smoking Status : Never smoked , History of tobacco use : Vital Signs Height 66.00 in 09/07/2025 Weight 160 lbs 09/07/2025 BMI 25.82 kg/m2 09/07/2025 Height-cm 167.64 cm 09/07/2025 Weight-kg 72.58 kg 09/07/2025 Encounters Encounter Location Date Provider Diagnosis [address] [id number] 09/07/2025 YOUSUF SALGADO Tinea unguium B35.1 ; Pain in right foot M79.671 ; Pain in left foot M79.672 ; Atherosclerosis of [place] arteries of extremities with intermittent claudication, bilateral legs I70.213 ; Acquired keratosis [keratoderma] palmaris et plantaris L85.1 and Plantar fascial fibromatosis M72.2 Assessments Encounter Date Diagnosis (ICD Code) Assessment Notes Treatment Notes Treatment Clinical Notes Section Notes 09/07/2025 Tinea unguium (ICD-10 - B35.1) NAIL DEBRIDEMENT: Nails 1-5 Bilateral were debrided extensively with nail nippers and emery board, reducing length and girth to pink healthy tissue with any subungual debris and necrotic tissue removed 09/07/2025 Pain in right foot (ICD-10 - M79.671) 09/07/2025 Pain in left foot (ICD-10 - M79.672) 09/07/2025 Atherosclerosis of [place] arteries of extremities with intermittent claudication, bilateral legs (ICD-10 - I70.213) clinton Patient educated on risks and aggravating factors of PVD, including conservative treatment options such as a diet and exercise regimen to aid in slowing progression of vascular disease. Check and protect LE bilateral daily. Call if any changes or concerns. 09/07/2025 Acquired keratosis [keratoderma] palmaris et plantaris (ICD-10 - L85.1) A total of 3 corns or calluses, as described in the note above, were cut and pared utilizing a #15 blade 09/07/2025 Plantar fascial fibromatosis (ICD-10 - M72.2) Heel Pain: I discussed anti-inflammator y treatment options and various means of pronation control with the patient. I educated the patient on icing and stretching, supportive shoegear, and the use of orthotic devices. Plan Of Treatment Treatment Notes Assessment Notes Tinea unguium NAIL DEBRIDEMENT: Na ils 1-5 Bilateral were debrided extensively with nail nippers and emery board, reducing length and girth to pink healthy tissue with any subungual debris and necrotic tissue removed Atherosclerosis of [place] ar [place]ies of extremities with intermittent claudication, [...] shoegear, and the use of orthotic devices. Next Appt Details Follow Up: 9 weeks, Reason: At-Risk Foot care, sooner if problems develop. Provider Name:YOUSUF SHANKS, 11/09/2025 09:20:00 AM, [address] [place] [address], [phone], History and Physical Notes * HPI (History [...] by Dr. Willams was April 2025., Initials nd Examination Category Sub-Category Detail Notes [...] plantar fascia,near its attachment to the calcaneus Progress Notes * JACOB KAPADIA ADOB: [birth year] (84 yo F)Acc No.[id number]:09/07/2025 Patient: JACOB HUERTA A Provider: Lenard SALGADO :1940 A ge:84 Y S ex:Female Date:09/07/2025 Address:[address] [place] [address] Subjective: * Chief Complaints: * * General care * HPI: H PI: General care P kristel presents to the office for at risk foot care. Patient states that their nails are thickened, elongated and painful. Patient states that it is aggravated by shoe gear. Onset is gradual. Patient denies being diabetic., P atelton denies taking blood thinners., D ate last seen by Dr. Willams was April 2025., I nitials nd. * ROS: G eneral / Constitutional: [...] acetate 0.2 MG Oral Tablet *Reorder from [facility] for eRx and Interaction Alerts*alprazolam 0.25 MG Oral Tablet [Xanax] ORAL , Notes to Pharmacist: alprazolam 0.25 MG Oral Tablet [Xanax]Original Medicationalprazolam 0.25 MG Oral Tablet [Xanax] *Reorder from [facility] for eRx and Interaction Alerts*amoxicillin 200 MG Chewable Tablet ORAL , Notes to Pharmacist: amoxicillin 200 MG Chewable TabletOriginal Medicationamoxicillin 200 MG Chewable Tablet *Reorder from [facility] for eRx and Interaction Alerts*aspirin 162 MG Delayed Release Oral Tablet ORAL , Notes to Pharmacist: aspirin 162 MG Delayed Release Oral TabletOriginal Medicationaspirin 162 MG Delayed Release Oral Tablet *[facility] for eRx and Interaction Alerts*esomeprazole 40 MG Delayed Release Oral Capsule [Nexium] ORAL , Notes to Pharmacist: esomeprazole 40 MG Delayed Release Oral Capsule [Nexium]Original Medicationesomeprazole 40 MG Delayed Release Oral Capsule [Nexium] *[facility] for eRx and Interaction Alerts*silver sulfadiazine 10 MG/ML Topical Cream [SSD] CUTANEOUS , Notes to Pharmacist: silver sulfadiazine 10 MG/ML Topical Cream [SSD]Original Medicationsilver sulfadiazine 10 MG/ML Topical Cream [SSD] *Reorder from [facility] for eRx and Interaction Alerts*Medication List reviewed and reconciled with the patientTaking Desmopressin Acetate 0.2 MG Oral Tablet ORAL , Notes to Pharmacist: desmopressin acetate 0.2 MG Oral TabletOriginal Medicationdesmopressin acetate 0.2 MG Oral Tablet *Reorder from [facility] for eRx and Interaction Alerts*Taking alprazolam 0.25 MG Oral Tablet [Xanax] ORAL , Notes to Pharmacist: alprazolam 0.25 MG Oral Tablet [Xanax]Original Medicationalprazolam 0.25 MG Oral Tablet [Xanax] *Reorder from [facility] for eRx and Interaction Alerts*Taking amoxicillin 200 MG Chewable Tablet ORAL , Notes to Pharmacist: amoxicillin 200 MG Chewable TabletOriginal Medicationamoxicillin 200 MG Chewable Tablet *Reorder from [facility] for eRx and Interaction Alerts*Taking aspirin 162 MG Delayed Release Oral Tablet ORAL , Notes to Pharmacist: aspirin 162 MG Delayed Release Oral TabletOriginal Medicationaspirin 162 MG Delayed Release Oral Tablet *Reorder from [facility] for eRx and Interaction Alerts*Taking esomeprazole 40 MG Delayed Release Oral Capsule [Nexium] ORAL , Notes to Pharmacist: esomeprazole 40 MG Delayed Release Oral Capsule [Nexium]Original Medicationesomeprazole 40 MG Delayed Release Oral Capsule [Nexium] *Reorder from [facility] for eRx and Interaction Alerts*Taking silver sulfadiazine 10 MG/ML Topical Cream [SSD] CUTANEOUS , Notes to Pharmacist: silver sulfadiazine 10 MG/ML Topical Cream [SSD]Original Medicationsilver sulfadiazine 10 MG/ML Topical Cream [SSD] *Reorder from [facility] for eRx and Interaction Alerts*Medication [...] - M79.672 4 . A therosclerosis of [place] arteries of extremities with intermittent claudication, bilateral legs - I70.213 5 . Acquired keratosis [keratoderma] palmaris et plantaris - L85.1 6 . P lantar fascial fibromatosis - M72.2 Plan: * Treatment: 2. A therosclerosis of [place] arteries of extremities with intermittent claudication, bilateral legs Notes: clinton Patient educated on risks and aggravating factors of PVD, including conservative treatment options such as a diet and exercise regimen to aid in slowing progression of vascular disease. Check and protect LE bilateral daily. Call if any changes or concerns. 3. A cquired keratosis [keratoderma] palmaris et plantaris Notes: A total of 3 corns or calluses, as described in the note above, were cut and pared utilizing a #15 blade 4. P lantar fascial fibromatosis Notes: Heel Pain: I discussed anti-inflammatory treatment options and various means of pronation control with the patient. I educated the patient on icing and stretching, supportive shoegear, and the use of orthotic devices. * Procedure Codes: 1 1056 TRIM SKIN LESIONS, 2 TO 4, Modifiers: Q8 74346 DEBRIDE NAIL, 6 OR MORE, Modifiers: 59 , Q8 * Follow Up: 9 weeks (Reason: At-Risk Foot care, sooner if problems develop.) Billing Information: * Procedure Codes: 09197 TRIM SKIN LESIONS, 2 TO 4. Modifiers: Q8 78083 DEBRIDE NAIL, 6 OR MORE. Modifiers: 59, Q8 * Electronic signature of DAMON SALGADO DPM on 09/23/2025 at 09:40 AM JAVA TECH LEAD Sign off status: Pending * Provider: Lenard SALGADO Date: 11/08/2024 Generated for Patrick garay/Stephanie/Carlos Manuel on: 11/24/2024 09:40 AM JAVA TECH LEAD
--- OUTSIDE RECORDS SUMMARY | 2025-09-14 08:00 | XMS_ITS ---
Author Organization [facility] Address [address] [place], [place] [address] Care Team Providers Care Hotel Maintenance Worker Name Role Phone YOUSUF SALGADO Unavailable [phone] Liliam Espinoza Unavailable Unavailable REASON FOR VISIT FOOT PAIN Medications Medication SIG (Take, Route, Frequency, Duration) Notes Start Date End Date Status silver sulfadiazine 10 MG/ML Topical Cream [SSD] CUTANEOUS silver sulfadiazine 10 MG/ML Topical Cream [SSD]Original Medicationsilver sulfadiazine 10 MG/ML Topical Cream [SSD] *Reorder from [facility] for eRx and Interaction Alerts* 09/17/2012 Active aspirin 162 MG Delayed Release Oral Tablet ORAL aspirin 162 MG Delayed Release Oral TabletOriginal Medicationaspirin 162 MG Delayed Release Oral Tablet *Reorder from [facility] for eRx and Interaction Alerts* 09/17/2012 Active esomeprazole 40 MG Delayed Release Oral Capsule [Nexium] ORAL esomeprazole 40 MG Delayed Release Oral Capsule [Nexium]Original Medicationesomeprazole 40 MG Delayed Release Oral Capsule [Nexium] *Reorder from [facility] for eRx and Interaction Alerts* 09/17/2012 Active alprazolam 0.25 MG Oral Tablet [Xanax] ORAL alprazolam 0.25 MG Oral Tablet [Xanax]Original Medicationalprazolam 0.25 MG Oral Tablet [Xanax] *Reorder from [facility] for eRx and Interaction Alerts* 09/17/2012 Active amoxicillin 200 MG Chewable Tablet ORAL amoxicillin 200 MG Chewable TabletOriginal Medicationamoxicillin 200 MG Chewable Tablet *Reorder from [employer] for eRx and Interaction Alerts* 09/17/2012 Active Desmopressin Acetate 0.2 MG Oral Tablet ORAL desmopressin acetate 0.2 MG Oral TabletOriginal Medicationdesmopressin acetate 0.2 MG Oral Tablet *Reorder from [facility] [employer] for eRx and Interaction Alerts* 09/17/2012 Active Encounters Encounter Location Date Provider Diagnosis [address] [id number] 09/14/2025 YOUSUF SALGADO Pain in right foot M79.671 ; Plantar fascial fibromatosis M72.2 ; Pain in left foot M79.672 ; Atherosclerosis of [place] arteries of extremities with intermittent claudication, bilateral legs I70.213 and Acquired keratosis [keratoderma] palmaris et plantaris L85.1 Assessments Encounter Date Diagnosis (ICD Code) Assessment Notes Treatment Notes Treatment Clinical Notes Section Notes 09/14/2025 Pain in right foot (ICD-10 - M79.671) 09/14/2025 Plantar fascial fibromatosis (ICD-10 - M72.2) Heel Pain: I discussed anti-inflammator y treatment options and various means of pronation control with the patient. I educated the patient on icing and stretching, supportive shoegear, and the use of orthotic devices. 09/14/2025 Pain in left foot (ICD-10 - M79.672) 09/14/2025 Atherosclerosis of [place] arteries of extremities with intermittent claudication, bilateral legs (ICD-10 - I70.213) Patient educated on risks and aggravating factors of PVD, including conservative treatment options such as a diet and exercise regimen to aid in slowing progression of vascular disease. Check and protect LE bilateral daily. Call if any changes or concerns. 09/14/2025 Acquired keratosis [keratoderma] palmaris et plantaris (ICD-10 - L85.1) 09/14/2025 Other NAIL DEBRIDEMENT: Nails 1-5 Bilateral were debrided extensively with nail nippers and emery board, reducing length and girth to pink healthy tissue with any subungual debris and necrotic tissue removed Plan Of Treatment Treatment Notes Assessment Notes Plantar fascial fibromatosis Heel Pain: I discussed anti-inflammatory treatment options and various means of pronation control with the patient. I educated the patient on icing and stretching, supportive shoegear, and the use of orthotic devices. Atherosclerosis of [place] ar teries of extremities with intermittent claudication, bilateral legs Patient educated on risks and aggravatin g factors of PVD, including conservative treatment options such as a diet and exercise regimen to aid in slowing progression of vascular disease. Check and protect LE bilateral daily. Call if any changes or concerns. Other NAIL DEBRIDEMENT: Na ils 1-5 Bilateral were debrided extensively with nail nippers and emery board, reducing length and girth to pink healthy tissue with any subungual debris and necrotic tissue removed Next Appt Details Follow Up: 10 - 12 weeks, Re ason: At-Risk Foot care, sooner if problems develop. Provider Name:YOUSUF SHANKS, 11/09/2025 09:20:00 AM, [address] [place] [address], [id number], History and Physical Notes * Examination Category Sub-Category Detail Notes Category Not es Dermatologic Skin findings: Skin is thin, at rophic and lacking pedal hair Nail pathology: They are painful to palpation Hypertrophic / [...] JACOB KAPADIA ADOB: [birth year] (84 yo F)Acc No.[id number]:09/14/2025 Patient: JACOB HUERTA Thalia Provider: Lenard SALGADO :1940 A ge:84 Y S ex:Female Date:09/14/2025 Address:[address] [place], [place] [id number] Subjective: * Chief Complaints: * F OOT PAIN * ROS: G eneral / Constitutional: Patient denies w eakness. M usculoskeletal: Patient complains of j oint pain, hammertoes. ? P eripheral Vascular: Patient denies b lanching of skin, cold extremities, decreased sensation in extremities. S kin: Patient complains of f ungal nails, discoloration, nail changes, calluses and corns. N eurologic: Patient denies d izziness, gait abnormality, headache. * Medications: T akingDesmopressin Acetate 0.2 MG Oral Tablet ORAL , Notes to Pharmacist: desmopressin acetate 0.2 MG Oral TabletOriginal Medicationdesmopressin acetate 0.2 MG Oral Tablet *Reorder from [facility] for eRx and Interaction Alerts*alprazolam 0.25 MG Oral Tablet [Xanax] ORAL , Notes to Pharmacist: alprazolam 0.25 MG Oral Tablet [Xanax]Original Medicationalprazolam 0.25 MG Oral Tablet [Xanax] *Reorder from [facility] for eRx and Interaction Alerts*amoxicillin 200 MG Chewable Tablet ORAL , Notes to Pharmacist: amoxicillin 200 MG Chewable TabletOriginal Medicationamoxicillin 200 MG Chewable Tablet *Reorder from [facility] for eRx and Interaction Alerts*aspirin 162 MG Delayed Release Oral Tablet ORAL , Notes to Pharmacist: aspirin 162 MG Delayed Release Oral TabletOriginal Medicationaspirin 162 MG Delayed Release Oral Tablet *Reorder from [facility] for eRx and Interaction Alerts*esomeprazole 40 MG Delayed Release Oral Capsule [Nexium] ORAL , Notes to Pharmacist: esomeprazole 40 MG Delayed Release Oral Capsule [Nexium]Original Medicationesomeprazole 40 MG Delayed Release Oral Capsule [Nexium] *Reorder from [facility] for eRx and Interaction Alerts*silver sulfadiazine 10 MG/ML Topical Cream [SSD] CUTANEOUS , Notes to Pharmacist: silver sulfadiazine 10 MG/ML Topical Cream [SSD]Original Medicationsilver sulfadiazine 10 MG/ML Topical Cream [SSD] *Reorder from [facility] for eRx and Interaction Alerts*Taking Desmopressin Acetate 0.2 MG Oral Tablet ORAL , Notes to Pharmacist: desmopressin acetate 0.2 MG Oral TabletOriginal Medicationdesmopressin acetate 0.2 MG Oral Tablet *Reorder from [facility] for eRx and Interaction Alerts*Taking alprazolam 0.25 MG Oral Tablet [Xanax] ORAL , Notes to Pharmacist: alprazolam 0.25 MG Oral Tablet [Xanax]Original Medicationalprazolam 0.25 MG Oral Tablet [Xanax] *Reorder from [facility] for eRx and Interaction Alerts*Taking amoxicillin 200 MG Chewable Tablet ORAL , Notes to Pharmacist: amoxicillin 200 MG Chewable TabletOriginal Medicationamoxicillin 200 MG Chewable Tablet *Reorder from [facility] for eRx and Interaction Alerts*Taking aspirin 162 MG Delayed Release Oral Tablet ORAL , Notes to Pharmacist: aspirin 162 MG Delayed Release Oral TabletOriginal Medicationaspirin 162 MG Delayed Release Oral Tablet *Reorder from [facility] for eRx and Interaction Alerts*Taking esomeprazole 40 MG Delayed Release Oral Capsule [Nexium] ORAL , Notes to Pharmacist: esomeprazole 40 MG Delayed Release Oral Capsule [Nexium]Original Medicationesomeprazole 40 MG Delayed Release Oral Capsule [Nexium] *Reorder from [facility] for eRx and Interaction Alerts*Taking silver sulfadiazine 10 MG/ML Topical Cream [SSD] CUTANEOUS , Notes to Pharmacist: silver sulfadiazine 10 MG/ML Topical Cream [SSD]Original Medicationsilver sulfadiazine 10 MG/ML Topical Cream [SSD] *Reorder from [facility] for eRx and Interaction Alerts* Objective: * Examination: P hysical Examination: General appearance: A lert, pleasant, well-nourished and in no acute distress. D ermatologic: Skin findings: S kin is thin, atrophic and lacking pedal hair. Hypertrophic / hyperkeratotic lesion: p lantar aspect of the right 2nd and 4th metatarsal heads and plantar aspect of the right 3rd digit. Nail pathology: They are painful to palpation. ? V [...] to the calcaneus. Assessment: * Assessment: 1. P lantar fascial fibromatosis - M72.2 (Primary) 2 . P ain in right foot - M79.671 3 . P ain in left foot - M79.672 4 . A therosclerosis of [place] arteries of extremities with intermittent claudication, bilateral legs - I70.213 & #160; 5 . A cquired keratosis [keratoderma] palmaris et plantaris - L85.1 Plan: * Treatment: 2. A therosclerosis of [place] arteries of extremities with intermittent claudication, bilateral legs Notes: Patient educated on risks and aggravating factors of PVD, including conservative treatment options such as a diet and exercise regimen to aid in slowing progression of vascular disease. Check and protect LE bilateral daily. Call if any changes or concerns. 3. O thers Notes: NAIL DEBRIDEMENT: Nails 1-5 Bilateral were debrided extensively with nail nippers and emery board, reducing length and girth to pink healthy tissue with any subungual debris and necrotic tissue removed * Follow Up: 1 0 - 12 weeks (Reason: At-Risk Foot care, sooner if problems develop.) * Electronic signature of DAMON SALGADO DPM on 09/23/2025 at 09:40 AM [employer] SERVICES MANAGER Sign off status: Pending * Provider: Lenard SALGADO Date: 11/15/2024 Generated for Patrick garay/Stephanie/Carlos Manuel on: 11/24/2024 09:40 AM [employer] MANAGER
--- NOTE | ~2025-09-23 | MR_ITS ---
EXAMINATION: MR thoracic spine wo con DATE: 09/23/2025 10:40 INDICATION: Back pain. TECHNIQUE: Magnetic resonance imaging (MRI) of the thoracic spine was performed without intravenous contrast. COMPARISON: None FINDINGS: There is 4 degrees dextrocurvature of thoracic spine. There is a Schmorl's of the superior endplate of T2. There is mildly decreased disc height at T2-T3. There is multilevel mild facet joint osteoarthritis. At T2-T3, there is a central protrusion with mild central canal stenosis. There is no neural foraminal stenosis. The spinal cord signal intensity is normal. The conus medullaris is at L1. IMPRESSION: 1. Mild thoracic spondylosis. Reviewed, dictated and finalized at location E. 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
--- OUTSIDE RECORDS SUMMARY | 2025-09-23 09:41 | XMS_ITS | Clinical Summary ---
Author Organization [facility] Address [facility] [place] [address] Care Team Providers Care Art Therapy Specialist Name Role Phone Liliam Espinoza MD Primary Care Provider [phone] Allergies Active Allergy Reactions Criticality Noted Date [...] age to complete this topic Insurance MEDICARE [facility] LIFE AND CASUALTY MEDICARE [facility] Care Teams Art Therapy Specialist Relationship Specialty Start Date End Date Liliam Espinoza MD [address] [place] [address] PCP - General INTERNAL MEDICINE 05/04/24
--- OUTSIDE RECORDS SUMMARY | 2025-09-23 09:41 | XMS_ITS | Patient Health Record ---
Author Organization [facility] Address [address] [place], [place] [address] Care Team Providers Care Manager Test Name Role Phone YOUSUF SALGADO Unavailable [phone] Liliam Espinoza Unavailable Unavailable ANDREW FERREIRA Unavailable [phone] Allergies Allergen (clinical drug ingredient) Drug/Non Drug Allergy documented on EMR Reaction Allergy Type Onset Date Status Iodine Unknown Drug Allergy 09/17/2012 active Reason For Referral No Information Medications Medication SIG (Take, Route, Frequency, Duration) Notes Start Date End Date Status Desmopressin Acetate 0.2 MG Oral Tablet ORAL desmopressin acetate 0.2 MG Oral TabletOriginal Medicationdesmopressin acetate 0.2 MG Oral Tablet *Reorder from [employer] for eRx and Interaction Alerts* 09/17/2012 Active silver sulfadiazine 10 MG/ML Topical Cream [SSD] CUTANEOUS silver sulfadiazine 10 MG/ML Topical Cream [SSD]Original Medicationsilver sulfadiazine 10 MG/ML Topical Cream [SSD] *Reorder from [employer] for eRx and Interaction Alerts* 09/17/2012 Active aspirin 162 MG Delayed Release Oral Tablet ORAL aspirin 162 MG Delayed Release Oral TabletOriginal Medicationaspirin 162 MG Delayed Release Oral Tablet *Reorder from [employer] for eRx and Interaction Alerts* 09/17/2012 Active esomeprazole 40 MG Delayed Release Oral Capsule [Nexium] ORAL esomeprazole 40 MG Delayed Release Oral Capsule [Nexium]Original Medicationesomeprazole 40 MG Delayed Release Oral Capsule [Nexium] *Reorder from [employer] for eRx and Interaction Alerts* 09/17/2012 Active alprazolam 0.25 MG Oral Tablet [Xanax] ORAL alprazolam 0.25 MG Oral Tablet [Xanax]Original Medicationalprazolam 0.25 MG Oral Tablet [Xanax] *Reorder from [employer] for eRx and Interaction Alerts* 09/17/2012 Active amoxicillin 200 MG Chewable Tablet ORAL amoxicillin 200 MG Chewable TabletOriginal Medicationamoxicillin 200 MG Chewable Tablet *Reorder from [employer] for eRx and Interaction Alerts* 09/17/2012 Active Immunizations Vaccine Route Administration Date Status Comme nts Influenza, high dose seasonal Unknown 07/24/2023 Admini stered Social History Social History Additional Details Category Social Info Options Details Migrated Social History Migrated Social History Smoking Status : Never smoked , History of tobacco use : Vital Signs Height-cm 167.64 cm 09/07/2025 Weight-kg 72.58 kg 09/07/2025 Height 66.00 in 09/07/2025 Weight 160 lbs 09/07/2025 BMI 25.82 kg/m2 09/07/2025 Encounters Encounter Location Date Provider Diagnosis [address] [id number] 02/16/2025 YOUSUF SALGADO Tinea unguium B35.1 ; Pain in right foot M79.671 ; Pain in left foot M79.672 ; Atherosclerosis of [place] arteries of extremities with intermittent claudication, bilateral legs I70.213 and Acquired keratosis [keratoderma] palmaris et plantaris L85.[address] [id number] 04/20/2025 YOUSUF SALGADO Tinea unguium B35.1 ; Pain in right foot M79.671 ; Pain in left foot M79.672 ; Atherosclerosis of [place] arteries of extremities with intermittent claudication, bilateral legs I70.213 and Acquired keratosis [keratoderma] palmaris et plantaris L85.[address] [id number] 06/22/2025 YOUSUF SALGADO 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 ; Pain in right toe(s) M79.674 ; Pain in left toe(s) M79.675 ; Atherosclerosis of [place] arteries of extremities with intermittent claudication, bilateral legs I70.213 and Acquired keratoderma L85.[address] [id number] 07/06/2025 YOUSUF SALGADO Tinea unguium B35.1 ; Pain in right foot M79.671 ; Pain in left foot M79.672 ; Atherosclerosis of [place] arteries of extremities with intermittent claudication, bilateral legs I70.213 ; Acquired keratosis [keratoderma] palmaris et plantaris L85.1 and Plantar fascial fibromatosis M72.[address] [id number] 09/07/2025 YOUSUF SALGADO Tinea unguium B35.1 ; Pain in right foot M79.671 ; Pain in left foot M79.672 ; Atherosclerosis of [place] arteries of extremities with intermittent claudication, bilateral legs I70.213 ; Acquired keratosis [keratoderma] palmaris et plantaris L85.1 and Plantar fascial fibromatosis M72.[address] [id number] 09/14/2025 YOUSUF SALGADO Pain in right foot M79.671 ; Plantar fascial fibromatosis M72.2 ; Pain in left foot M79.672 ; Atherosclerosis of [place] arteries of extremities with intermittent claudication, bilateral legs I70.213 and Acquired keratosis [keratoderma] palmaris et plantaris L85.[address] [id number] 10/13/2024 ANDREW SNOOK Tinea unguium B35.1 ; Pain in right foot M79.671 ; Pain in left foot M79.672 ; Atherosclerosis of [place] arteries of extremities with intermittent claudication, bilateral legs I70.213 and Acquired keratosis [keratoderma] palmaris et plantaris L85.[address] [id number] 12/15/2024 ANDREW SNOOK Tinea unguium B35.1 ; Pain in right foot M79.671 ; Pain in left foot M79.672 ; Atherosclerosis of [place] arteries of extremities with intermittent claudication, bilateral [...] in right foot (ICD-10 - M79.671) 09/07/2025 Tinea unguium (ICD-10 - B35.1) NAIL [...] use of orthotic devices. 09/14/2025 Pain in right foot (ICD-10 - M79.671) 09/14/2025 Pain in left foot (ICD-10 - M79.672) 09/07/2025 Pain in left foot (ICD-10 - M79.672) 07/06/2025 Pain in left foot (ICD-10 - M79.672) 06/22/2025 Pain in left toe(s) (ICD-10 - M79.675) 04/20/2025 Pain in left foot (ICD-10 - M79.672) 02/16/2025 Pain in left foot (ICD-10 - M79.672) 12/15/2024 Pain in left foot (ICD-10 - M79.672) 10/13/2024 Pain in left foot (ICD-10 - M79.672) 10/13/2024 Atherosclerosis of [place] arteries of extremities with intermittent claudication, bilateral legs (ICD-10 - I70.213) 12/15/2024 Atherosclerosis of [place] arteries of extremities with intermittent claudication, bilateral legs (ICD-10 - I70.213) 02/16/2025 Atherosclerosis of [place] arteries of extremities with intermittent claudication, bilateral legs (ICD-10 - I70.213) 06/22/2025 Atherosclerosis of [place] arteries of extremities with intermittent claudication, bilateral legs (ICD-10 - I70.213) 04/20/2025 Atherosclerosis of [place] arteries of extremities with intermittent claudication, bilateral legs (ICD-10 - I70.213) 07/06/2025 Atherosclerosis of [place] arteries of extremities with intermittent claudication, bilateral legs (ICD-10 - I70.213) [place] Patient educated on risks and aggravating factors of PVD, including conservative treatment options such as a diet and exercise regimen to aid in slowing progression of vascular disease. Check and protect LE bilateral daily. Call if any changes or concerns. 09/07/2025 Atherosclerosis of [place] arteries of extremities with intermittent claudication, bilateral legs (ICD-10 - I70.213) [place] Patient educated on risks and aggravating factors of PVD, including conservative treatment options such as a diet and exercise regimen to aid in slowing progression of vascular disease. Check and protect LE bilateral daily. Call if any changes or concerns. 09/14/2025 Atherosclerosis of [place] arteries of extremities with intermittent claudication, bilateral legs (ICD-10 - I70.213) Patient educated on risks and aggravating factors of PVD, including conservative treatment options such as a diet and exercise regimen to aid in slowing progression of vascular disease. Check and protect LE bilateral daily. Call if any changes or concerns. 09/14/2025 Acquired keratosis [keratoderma] palmaris et plantaris (ICD-10 - L85.1) 09/07/2025 Acquired keratosis [keratoderma] palmaris et plantaris (ICD-10 - L85.1) A total of 3 corns or calluses, as described in the note above, were cut and pared utilizing a #15 blade 06/22/2025 Acquired keratoderma (ICD-10 - L85.1) 07/06/2025 Acquired keratosis [keratoderma] palmaris et plantaris [...] injected right origin of plantar fascial band. 09/07/2025 Plantar fascial fibromatosis (ICD-10 - M72.2) Heel Pain: I discussed anti-inflammator y treatment options and various means of pronation control with the patient. I educated the patient on icing and stretching, supportive shoegear, and the use of orthotic devices. 09/14/2025 Other NAIL DEBRIDEMENT: Nails 1-5 Bilateral were debrided extensively with nail nippers and emery board, reducing length and girth to pink healthy tissue with any subungual debris and necrotic tissue removed Plan Of Treatment Next Appt Details Provider Name:YOUSUF Luca SHANKS, 11/09/2025 09:20:00 AM, [address] [place] [address], [id number], Insurance Providers Payer Name Payer Address Payer Phone Subscriber Number Group Number Insured Name Patient Relationship to Insured Coverage Start Date Coverage End Date Medicare Part [place] [address] [place] [address] [id number] JACOB KAPADIA Self - patient is the insured [facility] [address] [address] [place] [address] [id number] JACOB KAPADIA Self - patient is the insured
--- OUTSIDE RECORDS SUMMARY | 2025-09-23 09:41 | XMS_ITS | Encounter Summary ---
Author Organization [facility] Address [facility] [place] [address] Care Team Providers Care Community Health Nursing Director Name Role Phone Liliam Espinoza MD Primary Care Provider [phone] Encounter Details Date Type Department Care Team (Late st Contact Info) Description 05/04/2024 Hospital Orders Only [facility] [address] [facility] [place] [address] Alexandria Calixto MD [address], [place] [id number] Social History Tobacco Use Types Packs/Day Years [...] on filedocumented in this encounter Care Teams Community Health Nursing Director Relationship Specialty Start Date End Date Liliam Espinoza MD [address] [place] [address] PCP - General INTERNAL MEDICINE 05/04/24 documented as of this encounter
== END 2025-09-23 09:38 | disposition home or self-care (01) ==
LOC: CHSIMG 09:39
PROVIDERS: PCP Internal Medicine; Visit Provider Nurse Practitioner Family
DX: M54.6 Pain in thoracic spine (principal); M43.04 Spondylolysis, thoracic region
CPT/HCPCS: 72146